=== PATIENT | female | born 1965 | race American Indian/Alaskan Native ===

== ENCOUNTER 2016-07-30 20:17 | Inpatient (IN) | payer BC ==
--- NOTE | 2016-07-30 21:11 | Emergency Department Report ---
Chief Complaint: Abdominal Pain Stated Complaint: ABD PAIN/MADELEINE Time Seen by Provider: 07/30/16 21:07 - HPI History of Present Illness: 51-year-old known dialysis patient that goes to dialysis Sunday. She comes in for complaint of shortness of breathing lower leg edema edema in her stomach. - Exam Vital Signs: Vital Signs 07/30/16 20:50 Temperature 98.1 F Pulse Rate 79 Respiratory 20 Rate Blood Pressure 144/71 O2 Sat by Pulse 100 Oximetry Physical Exam: Patient is alert she appears to be uncomfortable cardiac tachycardic rate about 140, respiratory tachypnea, rates about 24 clear to auscultation, abdomen soft there is edema noted on the bilateral quadrants. Extremities bilateral edema MSE screening note: Focused history and physical exam performed. Due to findings the following was ordered: CBC CMP and BNP chest x-ray discussed with Dr. Rico patient to be evaluated in main ER. Also charge nurse is aware patient needing a room [facility]. ED Disposition for MSE Condition: Stable Instructions: Abdominal Pain (ED)
[2016-07-30 22:06] LABS: Hematocrit 29.1 % (30.3-42.9); Hemoglobin 9.4 gm/dl (10.1-14.3); Mean Corpuscular HGB Conc 32 % (30-34); Mean Corpuscular Hemoglobin 31 pg (28-32); Mean Corpuscular Volume 96 fl (79-97); Platelet Count 349 K/mm3 (140-440); Red Blood Count 3.03 M/mm3 (3.65-5.03); White Blood Count 12.9 K/mm3 (4.5-11.0)
[2016-07-30 22:11] LABS: Alanine Aminotransferase 24 units/L (7-56); Albumin 2.9 g/dL (3.9-5); Albumin/Globulin Ratio 0.6 %; Alkaline Phosphatase 639 units/L (35-129); BUN/Creatinine Ratio 8.75; Bilirubin,Total 2.6 mg/dL (0.1-1.2); Blood Urea Nitrogen 63 mg/dL (7-17); Calcium 9.7 mg/dL (8.4-10.2); Carbon Dioxide 16 mmol/L (22-30); Chloride 88.9 mmol/L (98-107); Glucose 265 mg/dL (65-100); Potassium 5.5 mmol/L (3.6-5.0); Sodium 133 mmol/L (137-145)
--- NOTE | 2016-07-30 22:20 | XRay Report ---
FINAL REPORT PROCEDURE: AP and lateral chest x-ray TECHNIQUE: AP and lateral chest radiographs were obtained. CPT 27858 HISTORY: esrd, sob swelling in her abd COMPARISON: No prior studies are available for comparison. FINDINGS: Heart: Magnified due to projection probably normal size. Mediastinum/Vessels: Normal. Lungs/Pleural space: Normal. Bony thorax: No acute osseous abnormality. Other: IMPRESSION: Upper normal heart size otherwise negative exam..
[2016-07-30 22:26] LABS: Anion Gap 34 mmol/L
[2016-07-31] MEDS ORDERED: MORPHINE IV ONE (04:21)
--- NOTE | 2016-07-31 05:13 | Cat Scan Report ---
FINAL REPORT PROCEDURE: CT ABDOMEN PELVIS WO CON TECHNIQUE: Computerized axial tomography of the abdomen and pelvis was performed without intravenous contrast. This study is performed without intravascular contrast material and its sensitivity for abdominal and pelvic pathology, including neoplasms, inflammation, abscess, free fluid, thrombosis, arterial dissection and infarction, is reduced compared with a contrast enhanced study. HISTORY: abdominal pain and swelling COMPARISON: 12/28/2014 FINDINGS: Visualized lower thorax: There is atelectasis at the left lung base.. Liver: The liver is enlarged. There is no discrete mass.. Spleen: Normal size and attenuation. Gallbladder and biliary system: There are calcifications in the gallbladder wall. There is pericholecystic fluid. Bile ducts are normal in caliber.. Pancreas: Normal. Adrenals: Normal. Kidneys: The kidneys are atrophic. There intrarenal vascular calcification. There are no stones. There is no hydronephrosis.. GI tract: There is no bowel obstruction, colitis or enteritis. Appendix is normal.. Lymph nodes and mesentery: Normal. Vasculature: There is dense calcified plaque in the abdominal aorta and branches.. Bladder: Normal. Reproductive organs: The uterus is unremarkable.. Peritoneum: There is moderate ascites. There is no free air.. Musculoskeletal structures: There is fusion hardware at L5-S1.. Other: There is subcutaneous edema in the anterior abdominal wall suggesting fluid overload or heart failure.. IMPRESSION: The liver is enlarged. There is no discrete mass.. There are calcifications in the gallbladder wall. There is pericholecystic fluid. Bile ducts are normal in caliber.. The kidneys are atrophic. There intrarenal vascular calcification. There are no stones. There is no hydronephrosis.. There is no bowel obstruction, colitis or enteritis. Appendix is normal.. There is moderate ascites. There is no free air.. There is subcutaneous edema in the anterior abdominal wall suggesting fluid overload or heart failure. .
--- NOTE | 2016-07-31 05:15 | Emergency Department Report ---
ED Abdominal Pain HPI - General Chief Complaint: Abdominal Pain Stated Complaint: ABD PAIN/MADELEINE Time Seen by Provider: 07/30/16 21:07 Source: patient Mode of arrival: Ambulatory Limitations: Physical Limitation - History of Present Illness Initial Comments: 51-year-old female presents to the emergency department complaining of abdominal pain and swelling. Patient reports it is evident present for one week. She states her symptoms are getting worse despite not missing a dialysis treatment. She reports shortness of breath secondary to increased swelling. She denies chest pain. There are no other complaints. MD Complaint: abdominal pain -: Gradual, week(s) (1) Location: diffuse Radiation: none Severity: moderate Quality: fullness Consistency: constant Improves With: nothing Worsens With: nothing - Related Data Home Medications Medication Instructions Recorded Confirmed Last Taken Gabapentin 300 mg PO TID 11/28/13 12/10/14 11/25/13 08:00 NovoLOG Mix 70/30 45 units SQ BID 12/10/14 12/10/14 Unknown Previous Rx's Medication Instructions Recorded Last Taken Type Insulin Glargine [Lantus VIAL] 5 - 10 units SQ DAILY PRN #10 units 12/31/14 Unknown Rx Levofloxacin 500Mg/100Ml [Levaquin 500 mg PO Q48H #20 mg 12/31/14 Unknown Rx IV PREMIX] Levothyroxine [Synthroid] 175 mcg PO QAM #30 tablet 12/31/14 Unknown Rx Promethazine [Phenergan SUPPOS] 25 mg UT Q6H PRN #30 supp.rect 12/31/14 Unknown Rx cloNIDine [Catapres] 0.2 mg PO DAILY #30 tablet 12/31/14 Unknown Rx metroNIDAZOLE/NS 500 MG/100 ML 500 mg PO BID #20 mg 12/31/14 Unknown Rx [Flagyl 500 mg/100 ml] Allergies Allergy/AdvReac Type Severity Reaction Status Date / Time Sulfa (Sulfonamide Allergy Intermediate Rash Verified 11/28/13 17:45 Antibiotics) ED Review of Systems ROS: Stated complaint: ABD PAIN/MADELEINE Other details as noted in HPI Comment: All other systems reviewed and negative Respiratory: shortness of breath Cardiovascular: edema Gastrointestinal: abdominal pain ED Past Medical Hx - Past Medical History Previous Medical History?: Yes Hx Hypertension: Yes Hx Heart Attack/AMI: No Hx Congestive Heart Failure: No Hx Diabetes: Yes Hx Deep Vein Thrombosis: Yes Hx Renal Disease: Yes (HD M, W, F) Hx Headaches / Migraines: Yes Hx Seizures: No Hx Asthma: No Additional medical history: Hemodialysis M, W, F Dr. Walker. Left arm graft - Surgical History Past Surgical History?: Yes Additional Surgical History: Left arm vascular graft, back surgery - Family History Family history: no significant - Social History Smoking Status: Never Smoker Substance Use Type: None - Medications Home Medications: Home Medications Medication Instructions Recorded Confirmed Last Taken Type Gabapentin 300 mg PO TID 11/28/13 12/10/14 11/25/13 08:00 History NovoLOG Mix 70/30 45 units SQ BID 12/10/14 12/10/14 Unknown History Insulin Glargine [Lantus VIAL] 5 - 10 units SQ DAILY PRN #10 units 12/31/14 Unknown Rx Levofloxacin 500Mg/100Ml [Levaquin 500 mg PO Q48H #20 mg 12/31/14 Unknown Rx IV PREMIX] Levothyroxine [Synthroid] 175 mcg PO QAM #30 tablet 12/31/14 Unknown Rx Promethazine [Phenergan SUPPOS] 25 mg UT Q6H PRN #30 supp.rect 12/31/14 Unknown Rx cloNIDine [Catapres] 0.2 mg PO DAILY #30 tablet 12/31/14 Unknown Rx metroNIDAZOLE/NS 500 MG/100 ML 500 mg PO BID #20 mg 12/31/14 Unknown Rx [Flagyl 500 mg/100 ml] ED Physical Exam - General Limitations: Physical Limitation General appearance: alert, in no apparent distress - Head Head exam: Present: atraumatic, normocephalic - Eye Eye exam: Present: normal appearance, PERRL, EOMI - ENT ENT exam: Present: normal exam, normal orophraynx, mucous membranes moist - Neck Neck exam: Present: normal inspection, full ROM. Absent: tenderness - Respiratory Respiratory exam: Present: normal lung sounds bilaterally. Absent: respiratory distress - Cardiovascular Cardiovascular Exam: Present: normal rhythm, tachycardia, normal heart sounds - GI/Abdominal GI/Abdominal exam: Present: soft, distended, tenderness (mild diffuse tenderness. There is a band of induration across the lower abdomen.), normal bowel sounds - Extremities Exam Extremities exam: Present: normal inspection, full ROM. Absent: tenderness - Back Exam Back exam: Present: normal inspection, full ROM. Absent: tenderness - Neurological Exam Neurological exam: Present: alert, oriented X3. Absent: motor sensory deficit - Skin Skin exam: Present: warm, dry, intact ED Course Vital Signs 07/30/16 20:50 Temperature 98.1 F Pulse Rate 79 Respiratory 20 Rate Blood Pressure 144/71 O2 Sat by Pulse 100 Oximetry ED Medical Decision Making - Lab Data Result diagrams: 07/30/16 21:34 07/30/16 21:34 - EKG Data -: EKG Interpreted by Me EKG shows normal: sinus rhythm, axis, intervals, QRS complexes, ST-T waves Rate: normal - EKG Data When compared to previous EKG there are: no significant change Interpretation: normal EKG, unchanged when compared t (03/06/2013) - Radiology Data Radiology results: report reviewed, image reviewed Chest x-ray shows no acute cardiopulmonary abnormality. CT of the abdomen and pelvis reveals an enlarged liver with no discrete mass. Calcifications are noted in the gallbladder wall with some pericholecystic fluid. Moderate ascites is seen with subcutaneous edema in the anterior abdominal wall suggesting fluid overload or heart failure. - Medical Decision Making Lab and imaging results reviewed and discussed with the patient. The CT findings and physical exam findings raise concern for possible calciphylaxis as well as volume overload. Consulting the patient's sampler ovens. The patient is to be admitted by the hospitalist. - Differential Diagnosis volume overload, electrolyte abnormality, anasarca Critical care attestation.: If time is entered above; I have spent that time in minutes in the direct care of this critically ill patient, excluding procedure time. ED Disposition Clinical Impression: Abdominal pain Qualifiers: Abdominal location: generalized Qualified Code(s): R10.84 - Generalized abdominal pain Volume overload Qualifiers: Hypervolemia type: other Qualified Code(s): E87.79 - Other fluid overload Disposition: OP ADMITTED IP TO THIS HOSP Is pt being admited?: Yes Condition: Stable Instructions: Abdominal Pain (ED) Time of Disposition: 05:55
[2016-07-31] MEDS ORDERED: HEPARIN SUB-Q ONE (07:38)
[2016-07-31] MEDS: MORPHINE IV PRN (07:53)
[2016-07-31] MEDS ORDERED: NACL 0.9% 1000 ML 100 ML IV PRN (09:14)
[2016-07-31] MEDS ORDERED: HEPARIN IV PRN (09:14)
[2016-07-31] MEDS ORDERED: ALBURX 25% (ALBUMIN) IV PRN (09:14)
[2016-07-31] MEDS ORDERED: HEPARIN 10,000 UNITS/10 ML IV PRN (09:14)
--- NOTE | 2016-07-31 09:14 | Consultation ---
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 The pain is diffuse and fairly constant and associated with intermittent nausea. She states her symptoms are getting worse. Her PO intake is good. Patient denies any vomiting, diarrhea, dizziness, melena, rectal bleeding, dysuria, hematuria, fever, jaundice, rash, sob or syncope. 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 She was last dialyzed 3 days ago. She is also found to have A.fib with RVR. Past History Past Medical History: anemia, diabetes, dialysis, hypertension, hypothyroidism, renal failure Social history: denies: smoking, alcohol abuse Medications and Allergies Allergies Allergy/AdvReac Type Severity Reaction Status Date / Time Sulfa (Sulfonamide Allergy Intermediate Rash Verified 11/28/13 17:45 Antibiotics) Home Medications Medication Instructions Recorded Confirmed Last Taken Type Gabapentin 300 mg PO TID 11/28/13 07/31/16 07/30/16 History NovoLOG Mix 70/30 45 units SQ BID 12/10/14 07/31/16 07/30/16 History Insulin Glargine [Lantus VIAL] 5 - 10 units SQ DAILY PRN #10 units 12/31/1407/30/16 Rx Levothyroxine [Synthroid] 175 mcg PO QAM #30 tablet 12/31/14 07/31/16 07/30/16 Rx cloNIDine [Catapres] 0.2 mg PO DAILY #30 tablet 12/31/14 07/31/16 07/30/16 Rx Ergocalciferol [Vitamin D2] 1 cap PO QWEEK 07/31/16 07/31/16 Unknown History NIFEdipine XL [Procardia Xl] 90 mg PO QDAY 07/31/16 07/31/16 07/30/16 History Ranitidine HCl 75 mg PO DAILY 07/31/16 07/31/16 07/30/16 History Temazepam [Restoril] 15 mg PO QHS 07/31/16 07/31/16 07/30/16 History Vitamin B Comp and C/FA/Zn Cit 1 tab PO DAILY 07/31/16 07/31/1607/30/17 History [Dialyvite 800-Zinc 15 mg Tab] hydrALAZINE [Apresoline] 25 mg PO DAILY 07/31/16 07/31/16 07/30/16 History Active Meds: Active Medications Morphine Sulfate (Morphine) 2 mg IV Q4H PRN PRN Reason: Pain, Moderate (4-6) Last Admin: 07/31/16 07:53 Dose: 2 mg Review of Systems Constitutional: no weight loss, no weight gain, no fever, no chills, no anorexia , no poor appetite Ears, nose, mouth and throat: no sinus pressure, no sinus pain Breasts: deferred Cardiovascular: high blood pressure, no chest pain, no orthopnea, no palpitations, no rapid/irregular heart beat, no edema, no syncope, no lightheadedness, no shortness of breath, no leg edema Respiratory: cough, no shortness of breath Gastrointestinal: abdominal pain, nausea, no vomiting, no diarrhea, no BRBPR, no melena Genitourinary Female: no dysuria, no hematuria Rectal: no pain Musculoskeletal: no redness of joints Integumentary: rash, no jaundice Neurological: no paralysis, no seizures, no syncope Endocrine: high blood sugars, no weight change Hematologic/Lymphatic: no easy bleeding Allergic/Immunologic: no wheezing Exam - Vital Signs Vital signs: Vital Signs Temp Pulse Resp BP Pulse Ox 98.1 F 79 20 144/71 100 07/30/16 20:50 07/30/16 20:50 07/30/16 20:50 07/30/16 20:50 07/30/16 20:50 - General Appearance General appearance: well-developed, well-nourished, other (no distress) EENT: PERRL, hearing intact, vision intact Neck: Present: neck supple Respiratory: Clear to Ascultation Heart: irregularly irregular, tachycardia, S1S2 Gastrointestinal: Present: normoactive bowel sounds, tenderness (diffuse mild tenderness noted) Integumentary: other (multiple papular hyperpimented rash over both UEs noted) Neurologic: no focal deficit, alert and oriented x3, CN 3-12 intact Musculoskeletal: Present: other (absent left little finger, left arm AVF) Psychiatric: mood/affect appropriate, cooperative Results - Lab Results 07/30/16 21:34 07/30/16 21:34 Most recent lab results Calcium 9.7 mg/dL (8.4-10.2) 07/30/16 21:34 Assessment and Plan - Patient Problems (1) Hyperkalemia Current Visit: Yes Status: Acute Plan to address problem: Hemodialysis today. (2) End stage renal disease on dialysis Current Visit: No Status: Chronic Plan to address problem: Continue hemodialysis MWF schedule. (3) Abdominal pain Current Visit: Yes Status: Acute Qualifiers: Abdominal location: generalized Qualified Code(s): R10.84 - Generalized abdominal pain (4) Atrial fibrillation with rapid ventricular response Current Visit: Yes Status: Acute (5) Anemia, chronic renal failure Current Visit: Yes Status: Chronic Plan to address problem: Epogen. (6) Essential (primary) hypertension Current Visit: Yes Status: Acute
--- NOTE | 2016-07-31 09:23 | Admit Criteria Form ---
Admission Criteria Documentation: ABDOMINAL PAIN Clinical Indications for Admission to Inpatient Care (Place 'X' for any and all applicable criteria): Admission is indicated for ANY ONE of the following(1)(2)(3)(4)(5): [X ]I. Inpatient admission required rather than observation care (Also use Abdominal Pain: Observation Care, as appropriate) because of ANY ONE of the following: [ ]a) Severe pain requiring acute inpatient management [ ]b) Identification of etiology/finding that requires inpatient care (eg, aortic dissection, free air) [ ]c) Absent bowel sounds with complete ileus(6) [ ]d) Suspected toxic megacolon [ ]e) Severe electrolyte abnormalities requiring inpatient care [ ]f) High fever or infection requiring inpatient admission as indicated by ANY ONE of following(7)(8): [ ] i) Appropriate outpatient or observational care antimicrobial treatment unavailable, not effective, or not feasible [ ] ii) Documented bacteremia [ ] iii) Temperature > 104.9 degrees F (oral) [ ] iv) T >103.1 F (oral) or < 96.8 F(rectal) that does not respond to all emergency treatment measures [ ]g) Signs of intestinal obstruction [B] [ ]h) Hemodynamic instability [ ]i) IV fluid to replace significant ongoing losses (greater than 3 L/m2 per day) (12)(13) [ ]j) Percutaneous or open drainage (eg, abscess, biliary tract ) procedures [ ]k) Parenteral nutrition regimen that must be implemented on inpatient basis [ X]l) Other condition,treatment or monitoring requiring inpatient admission. [ ]II. Peritoneal signs present [ ]III. Surgery needed that cannot be performed on an ambulatory basis. [ ]IV. Evaluation requires patient to not eat or drink for extended period ( eg, more than 24 hours). [ ]V. Contraindications and/or Inappropriate clinical situations for Observational Care in patients with abdominal pain, when ANY ONE of the following is required: [ ]a) Thorough evaluation is required to prevent catastrophic events due to delays in diagnosing (e.g.Mesenteric ischemia) 1,3 [ ]b) Patient with severe pathology or with chronic symptoms unlikely to improve in the ED stay (3) [X ]. General contraindications and/or Inappropriate clinical situations for Observational Care in patients with abdominal pain, when ANY ONE of the following is required: [X ]a) Prediction of prolongation of LOS based on ANY ONE of the following may be considered as a contraindication for observational care 2, 3, 4, 5, 6, 7, 8, 9, 10, 11 [ ]i) Age > 65 yrs. [ ]ii) Patient arriving by ambulance [ ]iii) Patient with high acuity [ ]iv) Patient requiring vital sign monitoring [X ]v) Patient on IV medication [ ]b) Systolic blood pressures 180mmHg 3,12 [ ]c) Patient with altered mental status including delirium and other alteration of consciousness, (3) [ ]d) Patient whose discharge disposition will be to a residential home or rehabilitation home should not be managed in Emergency Department Observation Unit. CMS rule requires 3 days hospital stay before such placement.3,13 [ ]e) Patient with failure to thrive due to broad array of etiologies 3,16,17 [ ]f) Inability to ambulate 3,14 Extended stay beyond goal length of stay may be needed for(2)(3): [ ]a) Persistent abdominal pain with suspected intra-abdominal process [ ]b) Diagnosed condition requiring continued stay (e.g., pancreatitis, complicated diverticulitis) [ ]c) Surgery (e.g., colectomy) The original [employer] content created by [employer] has been revised. The portions of the content which have been revised are identified through the use of italic text or in bold, and [facility] has neither reviewed nor approved the modified material.All other unmodified content is copyright [employer]. Please see references footnoted in the original [employer] edition 2016 Admission Criteria Met: Yes
[2016-07-31] MEDS ORDERED: BENADRYL PO PRN (11:43)
[2016-07-31] MEDS: CARDIZEM PO SCH ×3 (12:15→23:32)
[2016-07-31] MEDS: NEURONTIN PO SCH ×3 (12:15→21:29)
[2016-07-31] MEDS: ASPIRIN PO SCH (12:15)
[2016-07-31 14:37] LABS: Hematocrit 28.8 % (30.3-42.9); Hemoglobin 9.2 gm/dl (10.1-14.3)
[2016-07-31 14:58] LABS: INR 1.39 (0.87-1.13)
[2016-07-31 14:59] LABS: Partial Thromboplastin Time 35.1 Sec. (24.2-36.6)
--- NOTE | 2016-07-31 15:33 | History and Physical Report ---
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 The pain is diffuse and fairly constant and associated with intermittent nausea. She states her symptoms are getting worse. Patient denies any vomiting, diarrhea, dizziness, melena, rectal bleeding, dysuria, hematuria, fever, jaundice, rash, sob or syncope. Her primary [employer] is . She was last dialyzed 3 days ago. She is also found to have A.fib with RVR in the ER. CT abdomen pelvis showed no acute change. She is now getting HD and abdominal pain also improved. Past History Past Medical History: anemia, diabetes, dialysis, hypertension, hypothyroidism, renal failure Past Surgical History: Other (fistula formation, arterial procedure in the left upper extremity for reduced blood flow to the left fourth and fifth fingers) Social history: denies: smoking, alcohol abuse Family history: diabetes, hypertension Medications and Allergies Allergies Allergy/AdvReac Type Severity Reaction Status Date / Time Sulfa (Sulfonamide Allergy Intermediate Rash Verified 11/28/13 17:45 Antibiotics) Home Medications Medication Instructions Recorded Confirmed Last Taken Type Gabapentin 300 mg PO TID 11/28/13 07/31/16 07/30/16 History NovoLOG Mix 70/30 45 units SQ BID 12/10/14 07/31/16 07/30/16 History Insulin Glargine [Lantus VIAL] 5 - 10 units SQ DAILY PRN #10 units 12/31/1407/30/16 Rx Levothyroxine [Synthroid] 175 mcg PO QAM #30 tablet 12/31/14 07/31/16 07/30/16 Rx cloNIDine [Catapres] 0.2 mg PO DAILY #30 tablet 12/31/14 07/31/16 07/30/16 Rx Ergocalciferol [Vitamin D2] 1 cap PO QWEEK 07/31/16 07/31/16 Unknown History NIFEdipine XL [Procardia Xl] 90 mg PO QDAY 07/31/16 07/31/16 07/30/16 History Ranitidine HCl 75 mg PO DAILY 07/31/16 07/31/16 07/30/16 History Temazepam [Restoril] 15 mg PO QHS 07/31/16 07/31/16 07/30/16 History Vitamin B Comp and C/FA/Zn Cit 1 tab PO DAILY 07/31/16 07/31/16 07/30/16 History [Dialyvite 800-Zinc 15 mg Tab] hydrALAZINE [Apresoline] 25 mg PO DAILY 07/31/16 07/31/16 07/30/16 History Active Meds: Active Medications Albumin Human (Alburx 25% (Albumin)) 25 gm IV LEON PRN PRN Reason: Hypotension Aspirin (Aspirin) 325 mg PO QDAY [facility] Last Admin: 07/31/16 12:15 Dose: 325 mg Atorvastatin Calcium (Lipitor) 40 mg PO QHS [facility] Diltiazem HCl (Cardizem) 30 mg PO Q6HR [facility] Last Admin: 07/31/16 12:15 Dose: 30 mg Diphenhydramine HCl (Benadryl) 12.5 mg PO Q6H PRN PRN Reason: Itching Famotidine (Pepcid) 10 mg PO QDAY [facility] Gabapentin (Neurontin) 300 mg PO TID [facility] Last Admin: 07/31/16 13:58 Dose: Not Given Heparin Sodium (Porcine) (Heparin 10,000 Units/10 Ml) 1,000 unit IV LEON PRN PRN Reason: hemodialysis Heparin Sodium (Porcine) (Heparin) 5,000 unit IV LEON PRN PRN Reason: hemodialysis Sodium Chloride (Nacl 0.9% 1000 Ml) 100 mls @ 999 mls/hr IV LEON PRN PRN Reason: Hypotension Heparin Sodium/Sodium Chloride (Heparin/ 0.45% Nacl-25,000 Unit/500 Ml) 500 mls @ 23 mls/hr IV TITR BRONSON; 1,150 UNITS/HR PRN Reason: Protocol Levofloxacin/Dextrose (Levaquin 250mg/50ml) 50 mls @ 50 mls/hr IV Q24HR [facility] PRN Reason: Protocol Insulin Human Isoph/Insulin Regular (Novolin 70/30) 45 unit SUB-Q BIDDIAB [facility] Last Admin: 07/31/16 15:20 Dose: Not Given Levothyroxine Sodium (Synthroid) 100 mcg PO DAILY@0600 [facility] Levothyroxine Sodium (Synthroid) 75 mcg PO DAILY@0600 [facility] Morphine Sulfate (Morphine) 2 mg IV Q4H PRN PRN Reason: Pain, Moderate (4-6) Last Admin: 07/31/16 07:53 Dose: 2 mg Multivit/Ca Carb/B Cmplx/FA/Prenat (Renal Caps) 1 cap PO QDAY [facility] Temazepam (Restoril) 15 mg PO QHS [facility] Review of Systems All systems: negative Constitutional: no weight loss, no anorexia, no fatigue, no poor appetite, no daytime sleepiness Ears, nose, mouth and throat: no ear pain, no ear discharge, no decreased hearing, no nose pain, no nasal congestion Breasts: normal Cardiovascular: no chest pain, no orthopnea, + palpitations, + rapid/irregular heart beat Respiratory: no cough, no cough with sputum, no excessive sputum, no hemoptysis , no shortness of breath Gastrointestinal: other (as in the history of presenting complaint) Genitourinary Female: no pelvic pain Rectal: no pain, no incontinence Musculoskeletal: no neck stiffness, no neck pain, no shooting arm pain, no shooting leg pain, no leg numbness/tingling Integumentary: no rash, no pruritis, no redness Neurological: no head injury, no transient paralysis, no weakness, no vertigo, no headaches Psychiatric: no anxiety, no memory loss, no change in sleep habits, no depression, no hopelessness Endocrine: no cold intolerance, no heat intolerance, no polyphagia, no excessive thirst Hematologic/Lymphatic: no easy bruising, no lymphadenopathy Allergic/Immunologic: no urticaria, no allergic rhinitis Exam - Physical Exam Narrative exam: General appearance: well-developed, well-nourished, other (no distress) EENT: PERRL, hearing intact, vision intact Neck: Present: neck supple Respiratory: Clear to Ascultation Heart: irregularly irregular, tachycardia, S1S2 Gastrointestinal: Present: normoactive bowel sounds, tenderness (diffuse mild tenderness noted) Integumentary: other (multiple papular hyperpimented rash over both UEs noted) Neurologic: no focal deficit, alert and oriented x3, CN 3-12 intact Musculoskeletal: Present: other (absent left little finger, left arm AVF) Psychiatric: mood/affect appropriate, cooperative - Constitutional Vitals: Temp Pulse Resp BP Pulse Ox 97.4 F L 72 18 99/54 100 07/31/16 15:25 07/31/16 15:32 07/31/16 15:25 07/31/16 15:32 07/31/16 09:19 Results - Labs CBC & Chem 7: 07/31/16 13:39 07/30/16 21:34 Labs: Laboratory Last Values WBC 12.9 K/mm3 (4.5-11.0) H 07/30/16 21:34 RBC 3.03 M/mm3 (3.65-5.03) L 07/30/16 21:34 Hgb 9.2 gm/dl (10.1-14.3) L 07/31/16 13:39 Hct 28.8 % (30.3-42.9) L 07/31/16 13:39 MCV 96 fl (79-97) 07/30/16 21:34 MCH 31 pg (28-32) 07/30/16 21:34 MCHC 32 % (30-34) 07/30/16 21:34 RDW 17.0 % (13.2-15.2) H 07/30/16 21:34 Plt Count 354 K/mm3 (140-440) 07/31/16 13:39 PT 17.0 Sec. (12.2-14.9) H 07/31/16 13:39 INR 1.39 (0.87-1.13) H 07/31/16 13:39 APTT 35.1 Sec. (24.2-36.6) 07/31/16 13:39 Sodium 133 mmol/L (137-145) L 07/30/16 21:34 Potassium 5.5 mmol/L (3.6-5.0) H 07/30/16 21:34 Chloride 88.9 mmol/L (98-107) L 07/30/16 21:34 Carbon Dioxide 16 mmol/L (22-30) L 07/30/16 21:34 Anion Gap 34 mmol/L 07/30/16 21:34 BUN 63 mg/dL (7-17) H 07/30/16 21:34 Creatinine 7.2 mg/dL (0.7-1.2) H 07/30/16 21:34 Estimated GFR 7 ml/min 07/30/16 21:34 BUN/Creatinine Ratio 8.75 % 07/30/16 21:34 Glucose 265 mg/dL (65-100) H 07/30/16 21:34 Calcium 9.7 mg/dL (8.4-10.2) 07/30/16 21:34 Total Bilirubin 2.6 mg/dL (0.1-1.2) H 07/30/16 21:34 AST 25 units/L (5-40) 07/30/16 21:34 ALT 24 units/L (7-56) 07/30/16 21:34 Alkaline Phosphatase 639 units/L (35-129) H 07/30/16 21:34 NT-Pro-B Natriuret Pep > 23629 pg/mL (0-450) H 07/30/16 21:34 Total Protein 8.0 g/dL (6.3-8.2) 07/30/16 21:34 Albumin 2.9 g/dL (3.9-5) L 07/30/16 21:34 Albumin/Globulin Ratio 0.6 % 07/30/16 21:34 Assessment and Plan Assessment and plan: (1) Atrial fibrillation with rapid ventricular response Current Visit: Yes Status: Acute Plan to address problem: Place on cardizem po, heparin drip cardiology consult. (2) End stage renal disease on dialysis Current Visit: No Status: Chronic Plan to address problem: Continue hemodialysis MWF schedule. nephrology consulted (3) Abdominal pain Current Visit: Yes Status: Acute Qualifiers: Abdominal location: generalized Qualified Code(s): R10.84 - Generalized abdominal pain CT abdomen/pelvis was unremarkable, continue to monitor (4) Hyperkalemia Current Visit: Yes Status: Acute Due to ESRD (5) Anemia, chronic renal failure Current Visit: Yes Status: Chronic Plan to address problem: Epogen during HD. (6) Essential (primary) hypertension Current Visit: Yes Status: chronic continue to monitor and cardizem for now Advance Directives: Yes VTE prophylaxis?: Chemical Plan of care discussed with patient/family: Yes
--- NOTE | 2016-07-31 17:53 | Echocardiography Report ---
Transthoracic Echocardiogram Indication: CHF BP: 125/78 Conclusions *1. Mild LV dysfunction, EF 40%. *2. Moderate conc LVH. *3. Dilated R heart chambers, moderate-severe TR, but only mild pulm HTN. Findings Left Ventricle: The left ventricular chamber size is mildly dilated. Moderate concentric left ventricular hypertrophy is observed. Moderate global hypokinesis of the left ventricle is observed. Global left ventricular systolic function is mild to moderately decreased. The estimated ejection fraction is 40-45%. Normal left ventricular diastolic filling is observed. Left Atrium: The left atrium is mildly dilated. Right Ventricle: The right ventricle is moderately dilated. The right ventricular global systolic function is moderately reduced. Right Atrium: The right atrium is moderately dilated. The interatrial septum bowed toward the left. Aortic Valve: The aortic valve is trileaflet. The aortic valve leaflets are mildly thickened. Mild aortic leaflet calcification is visualized. There is no evidence of aortic regurgitation. There is no evidence of aortic stenosis. Mitral Valve: The mitral valve leaflets appear myxomatous. The mitral valve leaflets are mildly thickened. The posterior leaflet of the mitral valve is thickened. Mitral valve posterior leaflet calcification is visualized. There is mild mitral regurgitation. There is no evidence of mitral stenosis. Tricuspid Valve: The tricuspid valve is not well visualized. 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 The tricuspid valve leaflets are mildly thickened. There is moderate to severe tricuspid regurgitation. The right ventricular systolic pressure is calculated at 37 mmHg. There is evidence of mild pulmonary hypertension. There is no tricuspid stenosis. Pulmonic Valve: The pulmonic valve appears normal. There is trace pulmonic regurgitation. There is no pulmonic stenosis. Pericardium: There is no pericardial effusion. Aorta: There is no dilatation of the aortic root. Venous: The inferior vena cava appears normal in size. There is less than 50% respiratory change in the inferior vena cava dimension. Measurements Chambers MM Name Value Normal Range Ao root diameter (MM) 2.8 cm (2 - 3.7) LA dimension (AP) MM 3.9 cm (1.9 - 4) LA:Ao ratio (MM) 1.39 ratio - AV cusp separation (MM) 1.5 cm (1.5 - 2.6) Chambers 2D Name Value Normal Range IVSd (2D) 1.38 cm (0.6 - 1.1) LVPWd (2D) 1.36 cm (0.6 - 1.1) IVS:LVPW ratio (2D) 1.01 ratio - LVIDd (2D) 4.07 cm (3.7 - 5.6) LVIDs (2D) 3.57 cm (2 - 3.8) LV FS (Teichholz) (2D) 12.3 % - LV FS (cube) (2D) 12.3 % - EF Teichholz (2D) 26.9 % - LA dimension (AP) 2D 3.8 cm (1.9 - 4) Volumes/Mass Name Value Normal Range LA ESV SP 4CH (MOD) 29 ml - LA ESV SP 2CH (MOD) 38 ml - LA ESV BP (MOD) 35 ml - LA ESV BP (MOD) index 18.6 ml/m2 - LV EDV SP 4CH (MOD) 33 ml - LV ESV SP 4CH (MOD) 25 ml - EF SP 4CH (MOD) 24 % - LV EDV SP 2CH (MOD) 65 ml - LV ESV SP 2CH (MOD) 39 ml - EF SP 2CH (MOD) 41 % - LV EDV BP 47 ml - LV ESV BP 33 ml - BP EF (MOD) 30 % - Diastolic/Systolic Function Name Value Normal Range MV E-wave Vmax 1.1 m/sec - MV deceleration time 120 msec - MV A-wave Vmax 0.65 m/sec - MV E:A ratio 1.7 ratio - LV septal e' Vmax 0.06 m/sec - LV lateral e' Vmax 0.08 m/sec - LV E:e' septal ratio 18.1 ratio - LV E:e' lateral ratio 14.6 ratio - Aortic Valve Name Value Normal Range AV VTI 22.3 cm - AV mean gradient 3 mmHg - LVOT diameter 2 cm - LVOT VTI 16.5 cm - LVOT mean gradient 2 mmHg - SV LVOT 52 ml - PO (continuity VTI) 2.32 cm2 - Mitral Valve Name Value Normal Range MV PHT 47 msec - MVA (PHT) 4.68 cm2 - Tricuspid Valve Name Value Normal Range TR Vmax 2.68 m/sec - TR peak gradient 29 mmHg - RAP 8 mmHg - RVSP 37 mmHg - Pulmonic Valve/Qp:Qs Name Value Normal Range PV Vmax 0.64 m/sec - PV peak gradient 2 mmHg - MA end-diastolic Vmax 2.22 m/sec - PV acceleration time 106 msec -
[2016-07-31] MEDS: LEVAQUIN 250MG/50ML 50 ML IV SCH (21:04)
[2016-07-31] MEDS: RESTORIL PO SCH (21:28)
[2016-07-31] MEDS: HEPARIN/ 0.45% NACL-25,000 UNIT/500 ML 500 ML IV SCH (21:30)
[2016-08-01] MEDS: SYNTHROID PO SCH ×2 (05:12)
[2016-08-01] MEDS: CARDIZEM PO SCH ×4 (05:12→23:03)
--- NOTE | 2016-08-01 05:28 | Progress Note ---
Assessment and Plan - Patient Problems (1) Hyperkalemia Current Visit: Yes Status: Acute Plan to address problem: S/p hemodialysis yesterday. (2) End stage renal disease on dialysis Current Visit: No Status: Chronic Plan to address problem: Continue hemodialysis three times a week. Compliance encouraged. (3) Abdominal pain Current Visit: Yes Status: Acute Qualifiers: Abdominal location: generalized Qualified Code(s): R10.84 - Generalized abdominal pain (4) Atrial fibrillation with rapid ventricular response Current Visit: Yes Status: Acute Plan to address problem: Rate controlled. (5) Anemia, chronic renal failure Current Visit: Yes Status: Chronic Plan to address problem: Epogen. (6) Essential (primary) hypertension Current Visit: Yes Status: Acute Plan to address problem: BP controlled. (7) Ascites Current Visit: Yes Status: Acute Plan to address problem: Scheduled for diagnostic paracentesis today. Subjective Date of service: 08/01/16 Interval history: Patient had one episode of diarrhea today. Objective - Vital Signs Vital signs: Vital Signs - 12hr 07/31/16 07/31/16 07/31/16 17:30 18:00 18:31 Temperature 97.4 F L Pulse Rate 74 75 75 Pulse Rate [ From Monitor] Respiratory 18 Rate Blood Pressure 115/54 125/63 125/63 Blood Pressure [Left Arm] O2 Sat by Pulse Oximetry 07/31/16 08/01/16 20:12 03:00 Temperature 98.2 F 97.5 F L Pulse Rate Pulse Rate [ 87 75 From Monitor] Respiratory 18 18 Rate Blood Pressure Blood Pressure 158/73 101/56 [Left Arm] O2 Sat by Pulse 99 99 Oximetry - General Appearance General appearance: well-developed, well-nourished, other (no distress) EENT: PERRL, mucous membranes moist Neck: no carotid bruit, supple Respiratory: Present: Clear to Ascultation Cardiology: irregularly irregular, S1S2, no murmurs Gastrointestinal: normoactive bowel sounds, no tenderness Integumentary: other (multiple hyperpigmented papules over the extremities noted ) Neurologic: no focal deficit, no asterixis, alert and oriented x3, CN 3-12 intact Musculoskeletal: other (absent left little finger, left arm AVF, LE edema & chronic stasis noted) Psychiatric: mood/affect appropriate, cooperative - Lab 07/31/16 13:39 07/30/16 21:34 Most recent lab results Calcium 9.7 mg/dL (8.4-10.2) 07/30/16 21:34
[2016-08-01] MEDS: NEURONTIN PO SCH ×3 (09:05→20:52)
[2016-08-01] MEDS: Renal Caps PO SCH (09:06)
[2016-08-01] MEDS: PEPCID PO SCH (09:06)
[2016-08-01] MEDS ORDERED: APRESOLINE PO SCH (10:00)
[2016-08-01] MEDS ORDERED: [UNRECOGNIZED DRUG - OTHER] PO SCH (10:00)
[2016-08-01] MEDS ORDERED: CATAPRES PO SCH (10:00)
[2016-08-01] MEDS ORDERED: RANITIDINE HCL 75 MG PO SCH (10:00)
[2016-08-01] MEDS ORDERED: PROCARDIA XL PO SCH (10:00)
[2016-08-01] MEDS: ASPIRIN PO SCH (10:13)
[2016-08-01] MEDS ORDERED: PROCRIT SUB-Q ONE ×2 (11:00→14:00)
[2016-08-01] MEDS: LEVAQUIN 250MG/50ML 50 ML IV SCH (12:25)
--- NOTE | 2016-08-01 13:16 | Consultation ---
Addendum entered and electronically signed by ERICK CERDA MD 08/01/16 13:50 : 51-year-old woman with end-stage renal disease on hemodialysis, rheumatoid arthritis and severe pulmonary hypertension. Months ago, underwent cardiac evaluation for lower extremity edema. A Lexiscan stress test was negative for ischemia, and echocardiogram showed well preserved left ventricular systolic function. She is admitted to the hospital at this time with chief complaints of abdominal pain and swelling, with secondary shortness of breath. He is admitted to the medical team, and workup of her abdominal swelling is in progress. Chest x-ray is negative for CHF or pulmonary edema. Abdominal CT reports moderate ascites. Cardiac consultation was requested for the finding of atrial fibrillation at the time of her presentation. With medical therapy, the atrial fibrillation has reverted back to a stable sinus rhythm. The atrial fibrillation is apparently new, in her records dating back to 2013, she has consistently maintained a sinus rhythm. Echocardiogram on current admission reveals a left ventricle ejection fraction of 40%, moderate, concentric left ventricular hypertrophy, dilated right heart chambers with moderate tricuspid regurgitation. Recommendations: We'll continue medical therapy for atrial fibrillation suppression, dialysis for fluid management, recommend GI evaluation of for abdominal pain and ascites. Ultimately, patient is a poor candidate for oral anticoagulation therapy as a result of multiple medical problems, chronic anemia and end-stage renal failure. Original Note: History of Present Illness Consult date: 08/01/16 Consult reason: atrial fibrillation History of present illness: This is a 51yr old woman with a history of Diabetes, Hypertension, Anemia, ESRD on hemodialysis who came to the emergency department complaining of abdominal pain ongoing for several weeks. Associated with intermittent nausea. Patient denies vomiting and diarrhea. CT abdomen reports anterior abdominal wall subcutaneous edema suggesting fluid overload and moderate ascities. Cardiac consultation requested for atrial fibrillation. Her presenting ECG shows a normal sinus rhythm. Review of telemetry strips shows a transient atrial fibrillation with RVR which has since reverted to a normal sinus rhythm. Patient denies palpitations and shortness of breath. She denies chest pain. Past History Past Medical History: anemia, diabetes, dialysis, hypertension, hypothyroidism, renal failure Social history: denies: smoking, alcohol abuse Medications and Allergies Allergies Allergy/AdvReac Type Severity Reaction Status Date / Time Sulfa (Sulfonamide Allergy Intermediate Rash Verified 11/28/13 17:45 Antibiotics) Home Medications Medication Instructions Recorded Confirmed Last Taken Type Gabapentin 300 mg PO TID 11/28/13 07/31/16 07/30/16 History NovoLOG Mix 70/30 45 units SQ BID 12/10/14 07/31/16 07/30/16 History Insulin Glargine [Lantus VIAL] 5 - 10 units SQ DAILY PRN #10 units 12/31/1407/30/16 Rx Levothyroxine [Synthroid] 175 mcg PO QAM #30 tablet 12/31/14 07/31/16 07/30/16 Rx cloNIDine [Catapres] 0.2 mg PO DAILY #30 tablet 12/31/14 07/31/16 07/30/16 Rx Ergocalciferol [Vitamin D2] 1 cap PO QWEEK 07/31/16 07/31/16 Unknown History NIFEdipine XL [Procardia Xl] 90 mg PO QDAY 07/31/16 07/31/16 07/30/16 History Ranitidine HCl 75 mg PO DAILY 07/31/16 07/31/16 07/30/16 History Temazepam [Restoril] 15 mg PO QHS 07/31/16 07/31/16 07/30/16 History Vitamin B Comp and C/FA/Zn Cit 1 tab PO DAILY 07/31/16 07/31/16 07/30/16 History [Dialyvite 800-Zinc 15 mg Tab] hydrALAZINE [Apresoline] 25 mg PO DAILY 07/31/16 07/31/16 07/30/16 History Active Meds: Active Medications Albumin Human (Alburx 25% (Albumin)) 25 gm IV LEON PRN PRN Reason: Hypotension Aspirin (Aspirin) 325 mg PO QDAY [facility] Last Admin: 08/01/16 10:13 Dose: Not Given Atorvastatin Calcium (Lipitor) 40 mg PO QHS [facility] Last Admin: 07/31/16 21:28 Dose: 40 mg Diltiazem HCl (Cardizem) 30 mg PO Q6HR [facility] Last Admin: 08/01/16 12:15 Dose: 30 mg Diphenhydramine HCl (Benadryl) 12.5 mg PO Q6H PRN PRN Reason: Itching Famotidine (Pepcid) 10 mg PO QDAY [facility] Last Admin: 08/01/16 09:06 Dose: 10 mg Gabapentin (Neurontin) 300 mg PO TID [facility] Last Admin: 08/01/16 09:05 Dose: 300 mg Heparin Sodium (Porcine) (Heparin 10,000 Units/10 Ml) 1,000 unit IV LEON PRN PRN Reason: hemodialysis Last Admin: 07/31/16 17:14 Dose: 1,000 unit Heparin Sodium (Porcine) (Heparin) 5,000 unit IV LEON PRN PRN Reason: hemodialysis Sodium Chloride (Nacl 0.9% 1000 Ml) 100 mls @ 999 mls/hr IV LEON PRN PRN Reason: Hypotension Heparin Sodium/Sodium Chloride (Heparin/ 0.45% Nacl-25,000 Unit/500 Ml) 500 mls @ 23 mls/hr IV TITR BRONSON; 1,150 UNITS/HR PRN Reason: Protocol Last Titration: 08/01/16 06:02 Dose: 1,250 units/hr Levofloxacin/Dextrose (Levaquin 250mg/50ml) 50 mls @ 50 mls/hr IV Q24HR [facility] PRN Reason: Protocol Last Admin: 08/01/16 12:25 Dose: 50 mls/hr Insulin Human Isoph/Insulin Regular (Novolin 70/30) 45 unit SUB-Q BIDDIAB [facility] Last Admin: 08/01/16 10:13 Dose: Not Given Levothyroxine Sodium (Synthroid) 100 mcg PO DAILY@0600 [facility] Last Admin: 08/01/16 05:12 Dose: 100 mcg Levothyroxine Sodium (Synthroid) 75 mcg PO DAILY@0600 [facility] Last Admin: 08/01/16 05:12 Dose: 75 mcg Morphine Sulfate (Morphine) 2 mg IV Q4H PRN PRN Reason: Pain, Moderate (4-6) Last Admin: 07/31/16 07:53 Dose: 2 mg Multivit/Ca Carb/B Cmplx/FA/Prenat (Renal Caps) 1 cap PO QDAY [facility] Last Admin: 08/01/16 09:06 Dose: 1 cap Temazepam (Restoril) 15 mg PO QHS [facility] Last Admin: 07/31/16 21:28 Dose: 15 mg Physical Examination Vital Signs Temp Pulse Resp BP Pulse Ox 98.1 F 79 20 144/71 100 07/30/16 20:50 07/30/16 20:50 07/30/16 20:50 07/30/16 20:50 07/30/16 20:50 General appearance: no acute distress HEENT: Positive: PERRL Neck: Positive: trachea midline Cardiac: Positive: Reg Rate and Rhythm Lungs: Positive: Decreased Breath Sounds Results 07/31/16 13:39 07/30/16 21:34 Coagulation 07/31/16 Range/Units 13:39 PT 17.0 H (12.2-14.9) Sec. INR 1.39 H (0.87-1.13) APTT 35.1 (24.2-36.6) Sec. CBC 07/31/16 Range/Units 13:39 Hgb 9.2 L (10.1-14.3) gm/dl Hct 28.8 L (30.3-42.9) % Plt Count 354 (140-440) K/mm3 EKG interpretations - Telemetry EKG Rhythm: Sinus Rhythm Assessment and Plan Volume overload Ascities ESRD on HD Hypertension Diabetes mellitus Anemia Transient atrial fib spontaneously reverted to sinus rhythm on oral cardizem for suppression Echo reports a dilated right heart chambers, moderate to severe TR but only mild pulmonary HTN. There is a mild LV dysfunction EF 40%.
[2016-08-01] MEDS ORDERED: PROCRIT SUB-Q NR (14:00)
--- NOTE | 2016-08-01 15:28 | Ultrasound Report ---
ULTRASOUND ABDOMEN LIMITED History: Ascites Findings: Transabdominal images in all 4 quadrants demonstrates small perihepatic ascites. No collection large enough for ultrasound guided paracentesis is demonstrated. Impression: Small ascites.
--- NOTE | 2016-08-01 19:13 | Progress Note ---
Assessment and Plan Assessment and plan: 1. AFIB RVR On admission Started on Cardizem and converted back to NSR Anticoagulated, on heparin drip 2. Acute exacerbation systolic heart failure/Right heart failure Presented for worsening shortness of breath and lower extremity edema, increased abdominal girth and abdominal pain ECHO showing EF 40%, moderate LVH, dilated right heart chambers, TR, pulmonary hypertension Cardiology following 2. Abdominal pain CT abd/pelvis with no acute abnormality, except for moderate ascites which can be due to her right heart failure Abd US pending to assess if paracentesis can be performed to rule out spontaneous peritonitis 3. ESRD on HD Neprology consulted to resume HD 4. Hyperkalemia Scheduled for HD today Recheck in am 6. Metabolic acidosis Secondary to renal failure vs infecton/sepsis Will undergo HD 4. Anemia of CKD Epogen with HD per neprology 8. SIRS Rule out infection, blood cultures obtained; CXR with no acute findings; CT abd/ pelvis also with no acute process, except for moderate ascitis and anterior abd wall subcutaneous edema; Abd US pending to assess if paracentesis can be performed 5. HTN On cardizem for afib and BP bordeline low Monitor 6. DM On insulin 70/30 Add SSI based on acuu-checks 7. Hypothyroidism Continue Synthroid Check TSH 8. Malnutrition Albumin 2.9 Consult conditioning room worker for diet supplementation 9. DVT prophylaxis Currently on heparin drip for A. fib History Interval history: c/o abd pain Hospitalist Physical - Constitutional Vitals: Temp Pulse Resp BP Pulse Ox 97.3 F L 85 18 90/53 98 08/01/16 16:26 08/01/16 16:26 08/01/16 16:26 08/01/16 16:26 08/01/16 16:26 General appearance: Present: no acute distress - Neck Neck: Present: supple, normal ROM. Absent: masses or JVD - Respiratory Respiratory effort: normal Respiratory: bilateral: diminished, negative: rhonchi, wheezing - Cardiovascular Rhythm: regular Heart Sounds: Present: S1 & S2, systolic murmur - Extremities Extremities: no ischemia Extremity abnormal: edema, other (AVF) - Abdominal General gastrointestinal: soft, tender, distended (midly), hypoactive bowel sounds - Integumentary Integumentary: Present: warm, dry. Absent: rash, clammy - Psychiatric Psychiatric: cooperative - Neurologic Neurologic: CNII-XII intact, no focal deficits Results - Labs CBC & Chem 7: 08/04/16 01:40 08/04/16 01:40 Labs: Laboratory Last Values WBC 12.9 K/mm3 (4.5-11.0) H 07/30/16 21:34 RBC 3.03 M/mm3 (3.65-5.03) L 07/30/16 21:34 Hgb 9.2 gm/dl (10.1-14.3) L 07/31/16 13:39 Hct 28.8 % (30.3-42.9) L 07/31/16 13:39 MCV 96 fl (79-97) 07/30/16 21:34 MCH 31 pg (28-32) 07/30/16 21:34 MCHC 32 % (30-34) 07/30/16 21:34 RDW 17.0 % (13.2-15.2) H 07/30/16 21:34 Plt Count 354 K/mm3 (140-440) 07/31/16 13:39 PT 17.0 Sec. (12.2-14.9) H 07/31/16 13:39 INR 1.39 (0.87-1.13) H 07/31/16 13:39 APTT 35.1 Sec. (24.2-36.6) 07/31/16 13:39 Heparin Anti-Xa Level < 0.10 U.I./ml (0.3-0.7) L 08/01/16 16:37 Sodium 133 mmol/L (137-145) L 07/30/16 21:34 Potassium 5.5 mmol/L (3.6-5.0) H 07/30/16 21:34 Chloride 88.9 mmol/L (98-107) L 07/30/16 21:34 Carbon Dioxide 16 mmol/L (22-30) L 07/30/16 21:34 Anion Gap 34 mmol/L 07/30/16 21:34 BUN 63 mg/dL (7-17) H 07/30/16 21:34 Creatinine 7.2 mg/dL (0.7-1.2) H 07/30/16 21:34 Estimated GFR 7 ml/min 07/30/16 21:34 BUN/Creatinine Ratio 8.75 % 07/30/16 21:34 Glucose 265 mg/dL (65-100) H 07/30/16 21:34 POC Glucose 255 (70-105) H 08/01/16 11:04 Calcium 9.7 mg/dL (8.4-10.2) 07/30/16 21:34 Total Bilirubin 2.6 mg/dL (0.1-1.2) H 07/30/16 21:34 AST 25 units/L (5-40) 07/30/16 21:34 ALT 24 units/L (7-56) 07/30/16 21:34 Alkaline Phosphatase 639 units/L (35-129) H 07/30/16 21:34 NT-Pro-B Natriuret Pep > 06177 pg/mL (0-450) H 07/30/16 21:34 Total Protein 8.0 g/dL (6.3-8.2) 07/30/16 21:34 Albumin 2.9 g/dL (3.9-5) L 07/30/16 21:34 Albumin/Globulin Ratio 0.6 % 07/30/16 21:34 - Imaging and Cardiology Chest x-ray: image reviewed (no acute findings) CT scan - abdomen: report reviewed (moderate ascitis) Imaging and Cardiology: ECHO - EF 40%, moderate LVH, dilated R heart chambers
[2016-08-01] MEDS: MORPHINE IV PRN (20:53)
[2016-08-01] MEDS: RESTORIL PO SCH ×2 (20:53→22:54)
[2016-08-02] MEDS: HEPARIN/ 0.45% NACL-25,000 UNIT/500 ML 500 ML IV SCH ×2 (01:00→06:04)
[2016-08-02 05:11] LABS: Basophils % (Auto) 0.2 % (0.0-1.8); Eosinophils % (Auto) 0.9 % (0.0-4.3); Hematocrit 27.6 % (30.3-42.9); Hemoglobin 8.7 gm/dl (10.1-14.3); Mean Corpuscular HGB Conc 32 % (30-34); Mean Corpuscular Hemoglobin 30 pg (28-32); Mean Corpuscular Volume 96 fl (79-97); Platelet Count 347 K/mm3 (140-440); Red Blood Count 2.87 M/mm3 (3.65-5.03); Red Cell Distribution Width 17.1 % (13.2-15.2); White Blood Count 15.9 K/mm3 (4.5-11.0)
[2016-08-02 05:27] LABS: Albumin 2.3 g/dL (3.9-5); Albumin/Globulin Ratio 0.4 %; BUN/Creatinine Ratio 9.67; Bilirubin,Total 2.7 mg/dL (0.1-1.2); Calcium 8.7 mg/dL (8.4-10.2); Chloride 85.9 mmol/L (98-107); Total Protein 7.5 g/dL (6.3-8.2)
[2016-08-02] MEDS: SYNTHROID PO SCH ×2 (06:03)
[2016-08-02] MEDS: CARDIZEM PO SCH ×2 (06:03→12:19)
[2016-08-02] MEDS: MORPHINE IV PRN ×2 (06:32→21:24)
--- NOTE | 2016-08-02 08:00 | Progress Note ---
Assessment and Plan - Patient Problems (1) Hyperkalemia Current Visit: Yes Status: Acute Plan to address problem: S/p hemodialysis and potassium level is better. (2) End stage renal disease on dialysis Current Visit: No Status: Chronic Plan to address problem: Continue hemodialysis three times a week. (3) Atrial fibrillation with rapid ventricular response Current Visit: Yes Status: Acute Plan to address problem: SR now. (4) Anemia, chronic renal failure Current Visit: Yes Status: Chronic Plan to address problem: Epogen. (5) Essential (primary) hypertension Current Visit: Yes Status: Acute (6) Ascites Current Visit: Yes Status: Acute Plan to address problem: Patient was advised to restrict fluid intake. Subjective Date of service: 08/02/16 Interval history: No new symptoms. Objective - Vital Signs Vital signs: Vital Signs - 12hr 08/01/16 08/02/16 08/02/16 22:00 00:00 04:00 Temperature 97.9 F 98.2 F Pulse Rate 74 Pulse Rate [ 71 75 Left Radial] Pulse Rate [ Right Dorsalis Pedis] Respiratory 18 18 Rate Blood Pressure 115/64 103/53 [Right Arm] O2 Sat by Pulse 99 98 Oximetry 08/02/16 07:59 Temperature 98.4 F Pulse Rate Pulse Rate [ Left Radial] Pulse Rate [ 73 Right Dorsalis Pedis] Respiratory 20 Rate Blood Pressure 106/54 [Right Arm] O2 Sat by Pulse 97 Oximetry - General Appearance General appearance: well-developed, well-nourished, other (no distress) EENT: PERRL, mucous membranes moist, hearing intact, vision intact Neck: JVD, no carotid bruit, supple Respiratory: Present: Clear to Ascultation Cardiology: regular, S1S2, no murmurs Gastrointestinal: normoactive bowel sounds, no tenderness, distended, no guarding Integumentary: warm and dry Neurologic: no focal deficit, no asterixis, alert and oriented x3 Musculoskeletal: other (bilateral LE chronic edema, left arm AVF) Psychiatric: mood/affect appropriate, cooperative - Lab 08/02/16 04:36 08/02/16 04:36 Most recent lab results Calcium 8.7 mg/dL (8.4-10.2) 08/02/16 04:36 Phosphorus 9.0 mg/dL (2.5-4.5) H 08/02/16 04:36
[2016-08-02] MEDS: NEURONTIN PO SCH ×3 (09:22→21:23)
[2016-08-02] MEDS: ASPIRIN PO SCH (09:22)
[2016-08-02] MEDS: Renal Caps PO SCH (09:22)
[2016-08-02] MEDS: PEPCID PO SCH (09:22)
[2016-08-02] MEDS: LEVAQUIN 250MG/50ML 50 ML IV SCH (09:23)
[2016-08-02] MEDS ORDERED: ALBURX 25% (ALBUMIN) IV PRN (09:38)
[2016-08-02] MEDS ORDERED: NACL 0.9% 1000 ML 100 ML IV PRN (09:38)
--- NOTE | 2016-08-02 12:14 | Progress Note ---
Addendum entered and electronically signed by SAHARA PARR MD 13:26: Switch diltiazem to CD form Start eliquis 5 mg po bid (patient describes frequent palpitations on a daily basis) Outpatient follow-up with [facility] for PAF, and cardiomyopathy Original Note: Assessment and Plan Abdominal pain Ascities ESRD on HD Hypertension Diabetes mellitus Anemia Transient atrial fib spontaneously reverted to sinus rhythm on oral cardizem for suppression Echo reports a dilated right heart chambers, moderate TR but only mild pulmonary HTN. There is a mild LV dysfunction EF 40%. Recommendations: Continue medical therapy for atrial fibrillation suppression. Patient is a poor candidate for oral anticoagulation therapy as a result of multiple medical problems, chronic anemia and end-stage renal failure. Subjective Date of service: 08/02/16 Interval history: Patient still complains of abdominal pain. Objective Vital Signs Temp Pulse Pulse Pulse Pulse Resp BP 08/02/16 11:00 97.5 F L 73 20 109/58 08/02/16 09:04 74 08/02/16 07:59 98.4 F 73 20 106/54 08/02/16 04:00 98.2 F 75 18 103/53 08/02/16 00:00 97.9 F 71 18 115/64 08/01/16 22:00 74 08/01/16 19:50 97.6 F 76 18 119/56 08/01/16 16:26 97.3 F L 85 18 90/53 08/01/16 14:44 95 H Pulse Ox 08/02/16 11:00 97 08/02/16 09:04 08/02/16 07:59 97 08/02/16 04:00 98 08/02/16 00:00 99 08/01/16 22:00 08/01/16 19:50 98 08/01/16 16:26 98 08/01/16 14:44 - Physical Examination General: No Apparent Distress HEENT: Positive: PERRL Neck: Positive: trachea midline Cardiac: Positive: Reg Rate and Rhythm Lungs: Positive: Decreased Breath Sounds - Labs and Meds Cardiac Enzymes 08/02/16 Range/Units 04:36 AST 23 (5-40) units/L CBC 08/02/16 Range/Units 04:36 WBC 15.9 H (4.5-11.0) K/mm3 RBC 2.87 L (3.65-5.03) M/mm3 Hgb 8.7 L (10.1-14.3) gm/dl Hct 27.6 L (30.3-42.9) % Plt Count 347 (140-440) K/mm3 Lymph # 1.2 (1.2-5.4) K/mm3 [place] # 1.0 H (0.0-0.8) K/mm3 Eos # 0.1 (0.0-0.4) K/mm3 Baso # 0.0 (0.0-0.1) K/mm3 Comprehensive Metabolic Panel 08/02/16 Range/Units 04:36 Sodium 130 L (137-145) mmol/L Potassium 5.0 (3.6-5.0) mmol/L Chloride 85.9 L (98-107) mmol/L Carbon Dioxide 16 L (22-30) mmol/L BUN 60 H (7-17) mg/dL Creatinine 6.2 H (0.7-1.2) mg/dL Glucose 155 H (65-100) mg/dL Calcium 8.7 (8.4-10.2) mg/dL AST 23 (5-40) units/L ALT 21 (7-56) units/L Alkaline Phosphatase 483 H (35-129) units/L Total Protein 7.5 (6.3-8.2) g/dL Albumin 2.3 L (3.9-5) g/dL
[2016-08-02] MEDS: TOPROL XL PO SCH (14:11)
--- NOTE | 2016-08-02 19:04 | Progress Note ---
Assessment and Plan Assessment and plan: 1. AFIB RVR - paroxysmal On admission Started on Cardizem and converted back to NSR Anticoagulated (on heparin drip) Cardiology switching Cardizem to CD; deciding if long term care pharmacist anticoagulation benefit outweighs the risks 2. Acute exacerbation systolic heart failure/Right heart failure Presented for worsening shortness of breath and lower extremity edema, increased abdominal girth and abdominal pain ECHO showing EF 40%, moderate LVH, dilated right heart chambers, TR, pulmonary hypertension Cardiology following and plans outpatient additional workup 2. Abdominal pain CT abd/pelvis with no acute abnormality, except for moderate ascites which can be due to her right heart failure Abd US obtained and showing small was cited with no correction be enough for ultrasound-guided paracentesis 3. ESRD on HD Neprology consulted HD resumed, on regular schedule MWF 4. Hyperkalemia Resolved HD Continue to monitor 6. Metabolic acidosis Secondary to renal failure vs infecton/sepsis S/p HD, still acidotic 4. Anemia of CKD Epogen with HD per neprology 8. SIRS Rule out infection CXR with no acute findings; CT abd/pelvis also with no acute process, except for moderate ascitis and anterior abd wall subcutaneous edema WBC trending up Blood cultures negative at 24 hours 5. HTN On cardizem po for afib and BP bordeline low Monitor 6. DM On insulin 70/30 Add SSI based on accu-checks 7. Hypothyroidism TSH slightly elevated Continue Synthroid 8. Malnutrition Albumin 2.9 Consult pile operator for diet supplementation 9. DVT prophylaxis Currently on heparin drip for A. fib History Interval history: seen during HD, no specific complaints Hospitalist Physical - Constitutional Vitals: Temp Pulse Resp BP Pulse Ox 97.5 F L 75 18 121/56 96 08/02/16 16:35 08/02/16 16:35 08/02/16 16:35 08/02/16 16:35 08/02/16 15:00 General appearance: Present: no acute distress - EENT Eyes: Present: PERRL, EOM intact, scleral icterus. Absent: conjunctival injection - Neck Neck: Present: supple, normal ROM. Absent: masses or JVD - Respiratory Respiratory effort: normal Respiratory: bilateral: diminished, negative: rhonchi, wheezing - Cardiovascular Rhythm: regular Heart Sounds: Present: S1 & S2, systolic murmur - Extremities Extremities: no ischemia Extremity abnormal: edema, other (AVF) - Abdominal General gastrointestinal: soft, tender, distended, hypoactive bowel sounds Localized gastrointestinal: tender: diffuse (no guarding) - Psychiatric Psychiatric: cooperative - Neurologic Neurologic: CNII-XII intact, no focal deficits Results - Labs CBC & Chem 7: 08/04/16 01:40 08/04/16 01:40 Labs: Laboratory Last Values WBC 15.9 K/mm3 (4.5-11.0) H 08/02/16 04:36 RBC 2.87 M/mm3 (3.65-5.03) L 08/02/16 04:36 Hgb 8.7 gm/dl (10.1-14.3) L 08/02/16 04:36 Hct 27.6 % (30.3-42.9) L 08/02/16 04:36 MCV 96 fl (79-97) 08/02/16 04:36 MCH 30 pg (28-32) 08/02/16 04:36 MCHC 32 % (30-34) 08/02/16 04:36 RDW 17.1 % (13.2-15.2) H 08/02/16 04:36 Plt Count 347 K/mm3 (140-440) 08/02/16 04:36 Lymph % (Auto) 7.8 % (13.4-35.0) L 08/02/16 04:36 [place] % (Auto) 6.4 % (0.0-7.3) 08/02/16 04:36 Eos % (Auto) 0.9 % (0.0-4.3) 08/02/16 04:36 Baso % (Auto) 0.2 % (0.0-1.8) 08/02/16 04:36 Lymph # 1.2 K/mm3 (1.2-5.4) 08/02/16 04:36 [place] # 1.0 K/mm3 (0.0-0.8) H 08/02/16 04:36 Eos # 0.1 K/mm3 (0.0-0.4) 08/02/16 04:36 Baso # 0.0 K/mm3 (0.0-0.1) 08/02/16 04:36 Seg Neutrophils % 84.7 % (40.0-70.0) H 08/02/16 04:36 Seg Neutrophils # 13.5 K/mm3 (1.8-7.7) H 08/02/16 04:36 PT 17.0 Sec. (12.2-14.9) H 07/31/16 13:39 INR 1.39 (0.87-1.13) H 07/31/16 13:39 APTT 35.1 Sec. (24.2-36.6) 07/31/16 13:39 Heparin Anti-Xa Level 0.34 U.I./ml (0.3-0.7) 08/02/16 13:37 Sodium 130 mmol/L (137-145) L 08/02/16 04:36 Potassium 5.0 mmol/L (3.6-5.0) 08/02/16 04:36 Chloride 85.9 mmol/L (98-107) L 08/02/16 04:36 Carbon Dioxide 16 mmol/L (22-30) L 08/02/16 04:36 Anion Gap 33 mmol/L 08/02/16 04:36 BUN 60 mg/dL (7-17) H 08/02/16 04:36 Creatinine 6.2 mg/dL (0.7-1.2) H 08/02/16 04:36 Estimated GFR 9 ml/min 08/02/16 04:36 BUN/Creatinine Ratio 9.67 % 08/02/16 04:36 Glucose 155 mg/dL (65-100) H 08/02/16 04:36 POC Glucose 312 (70-105) H 08/01/16 20:51 Calcium 8.7 mg/dL (8.4-10.2) 08/02/16 04:36 Phosphorus 9.0 mg/dL (2.5-4.5) H 08/02/16 04:36 Total Bilirubin 2.7 mg/dL (0.1-1.2) H 08/02/16 04:36 AST 23 units/L (5-40) 08/02/16 04:36 ALT 21 units/L (7-56) 08/02/16 04:36 Alkaline Phosphatase 483 units/L (35-129) H 08/02/16 04:36 NT-Pro-B Natriuret Pep > 94236 pg/mL (0-450) H 07/30/16 21:34 Total Protein 7.5 g/dL (6.3-8.2) 08/02/16 04:36 Albumin 2.3 g/dL (3.9-5) L 08/02/16 04:36 Albumin/Globulin Ratio 0.4 % 08/02/16 04:36 TSH 6.790 mlU/mL (0.270-4.200) H 08/02/16 04:36 - Imaging and Cardiology Imaging and Cardiology: Abd US - small ascitis, no collection big enough for paracentesis
[2016-08-02] MEDS: ELIQUIS PO SCH (21:24)
[2016-08-02] MEDS: RESTORIL PO SCH (21:24)
[2016-08-03] MEDS: MORPHINE IV PRN ×2 (05:13→12:01)
[2016-08-03] MEDS: SYNTHROID PO SCH ×2 (05:14)
[2016-08-03] MEDS ORDERED: D50W (25GM) IV ONE ×3 (06:11→12:21)
--- NOTE | 2016-08-03 07:18 | Progress Note ---
Assessment and Plan - Patient Problems (1) End stage renal disease on dialysis Current Visit: No Status: Chronic Plan to address problem: Continue hemodialysis three times a week. (2) Hyperkalemia Current Visit: Yes Status: Acute Plan to address problem: Improved. (3) Atrial fibrillation with rapid ventricular response Current Visit: Yes Status: Acute Plan to address problem: SR now. (4) Anemia, chronic renal failure Current Visit: Yes Status: Chronic Plan to address problem: Epogen. (5) Essential (primary) hypertension Current Visit: Yes Status: Acute (6) Ascites Current Visit: Yes Status: Acute Subjective Date of service: 08/03/16 Interval history: Patient was hypoglycemic this morning. Objective - Vital Signs Vital signs: Vital Signs - 12hr 08/02/16 08/02/16 08/03/16 20:00 21:24 00:41 Temperature 97.9 F 98.2 F Pulse Rate Pulse Rate [ 81 77 Left Radial] Respiratory 18 20 18 Rate Blood Pressure 124/57 90/47 [Right Arm] O2 Sat by Pulse 98 98 Oximetry 08/03/16 08/03/16 08/03/16 04:02 04:07 05:13 Temperature 98.1 F Pulse Rate 75 Pulse Rate [ 79 Left Radial] Respiratory 18 20 Rate Blood Pressure 122/55 [Right Arm] O2 Sat by Pulse 98 Oximetry - General Appearance General appearance: well-developed, well-nourished, fatigue, other (no distress) EENT: PERRL, mucous membranes moist, hearing intact, vision intact Neck: JVD, supple Respiratory: Present: Clear to Ascultation Cardiology: regular, S1S2, no murmurs Gastrointestinal: normoactive bowel sounds, no distended, no guarding, obese Integumentary: other (papular eruption noted) Neurologic: no focal deficit, no asterixis, alert and oriented x3 Musculoskeletal: other (bilateral LE edema noted, right arm AVF) Psychiatric: mood/affect appropriate, cooperative - Lab 08/02/16 04:36 08/02/16 04:36 Most recent lab results Calcium 8.7 mg/dL (8.4-10.2) 08/02/16 04:36 Phosphorus 9.0 mg/dL (2.5-4.5) H 08/02/16 04:36
[2016-08-03] MEDS: LEVAQUIN 250MG/50ML 50 ML IV SCH (09:37)
[2016-08-03] MEDS: PEPCID PO SCH (09:37)
[2016-08-03] MEDS: TOPROL XL PO SCH (09:38)
[2016-08-03] MEDS: NEURONTIN PO SCH ×3 (09:38→19:58)
[2016-08-03] MEDS: ASPIRIN PO SCH (09:38)
[2016-08-03] MEDS: ELIQUIS PO SCH (09:38)
[2016-08-03] MEDS: Renal Caps PO SCH (09:38)
[2016-08-03] MEDS ORDERED: ZESTRIL PO SCH (10:00)
--- NOTE | 2016-08-03 11:45 | Progress Note ---
Addendum entered and electronically signed by ERICK CERDA MD 08/03/16 14:45 : The patient continues to complain of abdominal pain, abdominal distention. CT scan of the abdomen reported moderate degree of ascites. Evaluation of the abdominal pain is pending. We will hold oral anticoagulation for paroxysmal A. fib, pending optimal assessment of the abdominal pathology, in case invasive procedures are required. Original Note: Assessment and Plan Abdominal pain Ascities ESRD on HD Hypertension Diabetes mellitus Anemia Transient atrial fib spontaneously reverted to sinus rhythm on metoprolol for suppression Echo reports a dilated right heart chambers, moderate TR but only mild pulmonary HTN. There is a mild LV dysfunction EF 40%. Recommendations: Continue medical therapy for atrial fibrillation suppression. GI consultation for abdominal pain. Subjective Date of service: 08/03/16 Interval history: Patient still complains of abdominal pain. Objective Vital Signs Temp Pulse Pulse Pulse Resp BP BP 08/03/16 11:18 72 08/03/16 07:30 97.4 F L 74 20 110/62 08/03/16 05:13 20 08/03/16 04:07 75 08/03/16 04:02 98.1 F 79 18 122/55 08/03/16 00:41 98.2 F 77 18 90/47 08/02/16 21:24 20 08/02/16 20:00 97.9 F 81 18 124/57 08/02/16 16:35 97.5 F L 75 18 121/56 08/02/16 16:30 75 117/54 08/02/16 16:15 73 122/53 08/02/16 16:00 73 109/54 08/02/16 15:45 76 119/53 08/02/16 15:30 74 116/53 08/02/16 15:15 75 107/51 08/02/16 15:00 97.2 F L 74 74 20 100/52 100/67 08/02/16 14:45 72 97/58 08/02/16 14:30 71 90/51 08/02/16 14:15 71 99/50 08/02/16 14:00 72 92/51 08/02/16 13:45 73 92/54 08/02/16 13:30 75 98/59 08/02/16 13:15 72 104/57 08/02/16 13:00 72 104/51 08/02/16 12:55 97.5 F L 72 18 102/56 Pulse Ox 08/03/16 11:18 08/03/16 07:30 98 08/03/16 05:13 08/03/16 04:07 08/03/16 04:02 98 08/03/16 00:41 98 08/02/16 21:24 08/02/16 20:00 98 08/02/16 16:35 08/02/16 16:30 08/02/16 16:15 08/02/16 16:00 08/02/16 15:45 08/02/16 15:30 08/02/16 15:15 08/02/16 15:00 96 08/02/16 14:45 08/02/16 14:30 08/02/16 14:15 08/02/16 14:00 08/02/16 13:45 08/02/16 13:30 08/02/16 13:15 08/02/16 13:00 08/02/16 12:55 - Physical Examination General: No Apparent Distress HEENT: Positive: PERRL Neck: Positive: trachea midline Cardiac: Positive: Reg Rate and Rhythm Lungs: Positive: Decreased Breath Sounds
--- NOTE | 2016-08-03 16:51 | Consultation ---
History of Present Illness - Reason for Consult Consult date: 08/03/16 Lower extremity pain Requesting physician: MARISELA PENN - History of Present Illness 51-year-old female with end-stage renal disease who has multiple medical problems including new onset atrial fibrillation who presented to the hospital after 2-3 weeks of swelling of the lower extremities, some abdominal distention (new onset ascites), and shortness of breath with exertion. She has been converted to a normal rhythm but continues to have abdominal pain and lower extremity swelling and pain. Vascular was consult for her lower extremity symptoms. She is known to our group for creation of a left upper extremity AV fistula. Upon discussion with the patient, she began to have pain in her lower extremities after they began to swell 2-3 weeks ago. Her swelling has improved , but she still has some pain in her lower extremities. Both lower extremities are painful. She reports long-standing numbness of the tips of her toes. Regarding her abdominal pain, she reports this occurs all the time, and postprandially. She has not lost any weight recently. She has palpable bilateral dorsalis pedis pulses. She has mild darkening of her skin from the knee to the ankle which corresponds to the area that was previously swollen and has subsequently decreased in swelling. She can move her toes without issue. She has baseline, long-standing, diabetic neuropathy of her toes. Past History Past Medical History: anemia, diabetes, dialysis, hypertension, hypothyroidism, renal failure Past Surgical History: Other (fistula formation, arterial procedure in the left upper extremity for reduced blood flow to the left fourth and fifth fingers) Social history: denies: smoking, alcohol abuse Family history: diabetes, hypertension Medications and Allergies Allergies Allergy/AdvReac Type Severity Reaction Status Date / Time Sulfa (Sulfonamide Allergy Intermediate Rash Verified 11/28/13 17:45 Antibiotics) Home Medications Medication Instructions Recorded Confirmed Last Taken Type Gabapentin 300 mg PO TID 11/28/13 07/31/16 07/30/16 History NovoLOG Mix 70/30 45 units SQ BID 12/10/14 07/31/16 07/30/16 History Insulin Glargine [Lantus VIAL] 5 - 10 units SQ DAILY PRN #10 units 12/31/1407/30/16 Rx Levothyroxine [Synthroid] 175 mcg PO QAM #30 tablet 12/31/14 07/31/1617 Rx cloNIDine [Catapres] 0.2 mg PO DAILY #30 tablet 12/31/14 07/31/16 07/30/16 Rx Ergocalciferol [Vitamin D2] 1 cap PO QWEEK 07/31/16 07/31/16 Unknown History NIFEdipine XL [Procardia Xl] 90 mg PO QDAY 07/31/16 07/31/16 07/30/16 History Ranitidine HCl 75 mg PO DAILY 07/31/16 07/31/16 07/30/16 History Temazepam [Restoril] 15 mg PO QHS 07/31/16 07/31/16 07/30/16 History Vitamin B Comp and C/FA/Zn Cit 1 tab PO DAILY 07/31/16 07/31/16 07/30/16 History [Dialyvite 800-Zinc 15 mg Tab] hydrALAZINE [Apresoline] 25 mg PO DAILY 07/31/16 07/31/16 07/30/16 History Active Meds: Active Medications Albumin Human (Alburx 25% (Albumin)) 12.5 gm IV LEON PRN PRN Reason: Hypotension Aspirin (Aspirin) 325 mg PO QDAY [facility] Last Admin: 08/03/16 09:38 Dose: 325 mg Atorvastatin Calcium (Lipitor) 40 mg PO QHS [facility] Last Admin: 08/02/16 21:23 Dose: 40 mg Diphenhydramine HCl (Benadryl) 12.5 mg PO Q6H PRN PRN Reason: Itching Famotidine (Pepcid) 10 mg PO QDAY [facility] Last Admin: 08/03/16 09:37 Dose: 10 mg Gabapentin (Neurontin) 300 mg PO TID [facility] Last Admin: 08/03/16 13:51 Dose: 300 mg Heparin Sodium (Porcine) (Heparin 10,000 Units/10 Ml) 1,000 unit IV LEON PRN PRN Reason: hemodialysis Last Admin: 07/31/16 17:14 Dose: 1,000 unit Heparin Sodium (Porcine) (Heparin) 5,000 unit IV LEON PRN PRN Reason: hemodialysis Sodium Chloride (Nacl 0.9% 1000 Ml) 100 mls @ 999 mls/hr IV LEON PRN PRN Reason: Hypotension Sodium Chloride (Nacl 0.9% 1000 Ml) 100 mls @ 999 mls/hr IV LEON PRN PRN Reason: Hypotension Insulin Human Isoph/Insulin Regular (Novolin 70/30) 45 unit SUB-Q BIDDIAB [facility] Last Admin: 08/03/16 08:31 Dose: Not Given Insulin Human Regular (Novolin R) 0 units SUB-Q ACHS [facility] PRN Reason: Protocol Last Admin: 08/03/16 12:25 Dose: Not Given Levofloxacin (Levaquin) 250 mg PO Q24HR [facility] Levothyroxine Sodium (Synthroid) 100 mcg PO DAILY@0600 [facility] Last Admin: 08/03/16 05:14 Dose: 100 mcg Levothyroxine Sodium (Synthroid) 75 mcg PO DAILY@0600 [facility] Last Admin: 08/03/16 05:14 Dose: 75 mcg Lisinopril (Zestril) 2.5 mg PO QDAY [facility] Last Admin: 08/03/16 09:38 Dose: 2.5 mg Metoprolol Succinate (Toprol Xl) 50 mg PO QDAY [facility] Last Admin: 08/03/16 09:38 Dose: 50 mg Morphine Sulfate (Morphine) 2 mg IV Q4H PRN PRN Reason: Pain, Moderate (4-6) Last Admin: 08/03/16 12:01 Dose: 2 mg Multivit/Ca Carb/B Cmplx/FA/Prenat (Renal Caps) 1 cap PO QDAY [facility] Last Admin: 08/03/16 09:38 Dose: 1 cap Temazepam (Restoril) 15 mg PO QHS [facility] Last Admin: 08/02/16 21:24 Dose: 15 mg Review of Systems All systems: negative (see HPI) Exam - Constitutional Vitals: Temp Pulse Resp BP Pulse Ox 97.4 F L 82 20 121/64 99 08/03/16 12:00 08/03/16 12:00 08/03/16 12:00 08/03/16 12:00 08/03/16 12:00 General appearance: Present: no acute distress - EENT Eyes: Present: EOM intact ENT: hearing intact - Respiratory Respiratory effort: normal - Extremities Extremities: pulses intact (dorsalis pedis palpable bilaterally), normal temperature, normal color Extremity abnormal: edema (no significant swelling at this time), other (some darkness of her lower extremities from her knees to her ankles at the area of prior swelling) - Abdominal General gastrointestinal: Present: tender (diffusely tender), distended, other ( no peritoneal signs) - Psychiatric Psychiatric: appropriate mood/affect, cooperative, other (slightly sleepy) Results - Labs CBC & Chem 7: 08/02/16 04:36 08/02/16 04:36 Labs: Abnormal lab results 08/02/16 08/02/16 08/03/16 Range/Units 07:56 11:08 06:08 POC Glucose 119 H 107 H < 40 L (70-105) 08/03/16 Range/Units 06:11 POC Glucose < 40 L (70-105) Assessment and Plan 51-year-old female with end-stage renal disease and presentation to the hospital with new onset atrial fibrillation with swelling of the lower extremities, abdomen, and dyspnea on exertion. She also had abdominal pain and lower extremity pain upon presentation. Her atrial fibrillation has converted, and she has had decreased swelling. She has palpable pedal pulses making lower extremity arterial insufficiency unlikely. Given the prior swelling, it is reasonable to perform a venous ultrasound to exclude acute deep venous thrombosis. I suspect her pain may be due to her prior swelling or from chronic venous issues exacerbated by her new onset swelling. Patient has abdominal pain which is no clear etiology. No peritoneal signs. Abdominal pain has been present for 3 weeks. Given her recent episode of atrial fibrillation and underlying end-stage renal disease, it is reasonable to perform a CT angiogram to rule out mesenteric ischemia. Her prior CT scans were performed without contrast. Discussed with Dr. Penn.
--- NOTE | 2016-08-03 20:39 | Progress Note ---
Assessment and Plan Assessment and plan: 1. AFIB RVR - paroxysmal Started on Cardizem and converted back to NSR Cardizem switched to Cd and anticoagulated with Eliquis now per cards recommandations 2. Acute exacerbation systolic heart failure/Right heart failure Presented for worsening shortness of breath and lower extremity edema, increased abdominal girth and abdominal pain ECHO showing EF 40%, moderate LVH, dilated right heart chambers, TR, pulmonary hypertension Cardiology following and plans outpatient additional workup 3. Abdominal pain CT abd/pelvis with no acute abnormality, except for moderate ascites which can be due to her right heart failure Abd US obtained and showing small ascites with no correction big enough for ultrasound-guided paracentesis Concern for mezenteric ischemia, so will obtained CTA abd; discussed with nephrology and HD already scheduled for tomorrow 3. ESRD on HD Neprology consulted HD resumed, on regular schedule MWF 4. Hyperkalemia Resolved HD Continue to monitor 6. Metabolic acidosis Secondary to renal failure vs infecton/sepsis S/p HD, still acidotic 4. Anemia of CKD Epogen with HD per neprology 8. SIRS Rule out infection CXR with no acute findings; CT abd/pelvis also with no acute process, except for moderate ascitis and anterior abd wall subcutaneous edema WBC trended up Blood cultures negative at 48 hours 5. HTN On cardizem po for afib and BP bordeline low Monitor 6. DM On insulin 70/30 Episodes of hypoglycemia due to poor po intake; hold insulin and monitor 7. Hypothyroidism TSH slightly elevated, Syntroid dose increased 8. Malnutrition Albumin 2.9 Nnutritionist consulted for diet supplementation 9. DVT prophylaxis On Eliquis History Interval history: still c/o abd pain aggravated by eating overnight had episode of hypoglycemia and D50 given Hospitalist Physical - Constitutional Vitals: Temp Pulse Resp BP Pulse Ox 97.6 F 66 18 92/53 98 08/03/16 20:05 08/03/16 20:05 08/03/16 20:05 08/03/16 20:05 08/03/16 20:05 General appearance: Present: no acute distress - EENT Eyes: Present: PERRL, scleral icterus - Neck Neck: Present: supple, normal ROM. Absent: masses or JVD - Respiratory Respiratory effort: normal Respiratory: bilateral: diminished, negative: rhonchi, wheezing - Cardiovascular Rhythm: regular Heart Sounds: Present: S1 & S2, systolic murmur - Extremities Extremities: no ischemia, abnormal (Bilat LE venous stasis changes, cooler, but pulses present) - Abdominal General gastrointestinal: soft, tender, distended, hypoactive bowel sounds Localized gastrointestinal: tender: diffuse (no rebound tenderness) - Integumentary Integumentary: Present: warm, dry, decreased turgor. Absent: rash - Neurologic Neurologic: moves all extremities Results - Labs CBC & Chem 7: 08/04/16 01:40 08/04/16 01:40 Labs: Laboratory Last Values WBC 15.9 K/mm3 (4.5-11.0) H 08/02/16 04:36 RBC 2.87 M/mm3 (3.65-5.03) L 08/02/16 04:36 Hgb 8.7 gm/dl (10.1-14.3) L 08/02/16 04:36 Hct 27.6 % (30.3-42.9) L 08/02/16 04:36 MCV 96 fl (79-97) 08/02/16 04:36 MCH 30 pg (28-32) 08/02/16 04:36 MCHC 32 % (30-34) 08/02/16 04:36 RDW 17.1 % (13.2-15.2) H 08/02/16 04:36 Plt Count 347 K/mm3 (140-440) 08/02/16 04:36 Lymph % (Auto) 7.8 % (13.4-35.0) L 08/02/16 04:36 [place] % (Auto) 6.4 % (0.0-7.3) 08/02/16 04:36 Eos % (Auto) 0.9 % (0.0-4.3) 08/02/16 04:36 Baso % (Auto) 0.2 % (0.0-1.8) 08/02/16 04:36 Lymph # 1.2 K/mm3 (1.2-5.4) 08/02/16 04:36 [place] # 1.0 K/mm3 (0.0-0.8) H 08/02/16 04:36 Eos # 0.1 K/mm3 (0.0-0.4) 08/02/16 04:36 Baso # 0.0 K/mm3 (0.0-0.1) 08/02/16 04:36 Seg Neutrophils % 84.7 % (40.0-70.0) H 08/02/16 04:36 Seg Neutrophils # 13.5 K/mm3 (1.8-7.7) H 08/02/16 04:36 PT 17.0 Sec. (12.2-14.9) H 07/31/16 13:39 INR 1.39 (0.87-1.13) H 07/31/16 13:39 APTT 35.1 Sec. (24.2-36.6) 07/31/16 13:39 Heparin Anti-Xa Level 0.34 U.I./ml (0.3-0.7) 08/02/16 13:37 Sodium 130 mmol/L (137-145) L 08/02/16 04:36 Potassium 5.0 mmol/L (3.6-5.0) 08/02/16 04:36 Chloride 85.9 mmol/L (98-107) L 08/02/16 04:36 Carbon Dioxide 16 mmol/L (22-30) L 08/02/16 04:36 Anion Gap 33 mmol/L 08/02/16 04:36 BUN 60 mg/dL (7-17) H 08/02/16 04:36 Creatinine 6.2 mg/dL (0.7-1.2) H 08/02/16 04:36 Estimated GFR 9 ml/min 08/02/16 04:36 BUN/Creatinine Ratio 9.67 % 08/02/16 04:36 Glucose 155 mg/dL (65-100) H 08/02/16 04:36 POC Glucose 145 (70-105) H 08/03/16 20:06 Calcium 8.7 mg/dL (8.4-10.2) 08/02/16 04:36 Phosphorus 9.0 mg/dL (2.5-4.5) H 08/02/16 04:36 Total Bilirubin 2.7 mg/dL (0.1-1.2) H 08/02/16 04:36 AST 23 units/L (5-40) 08/02/16 04:36 ALT 21 units/L (7-56) 08/02/16 04:36 Alkaline Phosphatase 483 units/L (35-129) H 08/02/16 04:36 NT-Pro-B Natriuret Pep > 93267 pg/mL (0-450) H 07/30/16 21:34 Total Protein 7.5 g/dL (6.3-8.2) 08/02/16 04:36 Albumin 2.3 g/dL (3.9-5) L 08/02/16 04:36 Albumin/Globulin Ratio 0.4 % 08/02/16 04:36 TSH 6.790 mlU/mL (0.270-4.200) H 08/02/16 04:36
[2016-08-03] MEDS: RESTORIL PO SCH (21:35)
[2016-08-03] MEDS ORDERED: INTROPIN DRIP 800 MG/D5W 250 ML IV ONE (23:10)
[2016-08-03] MEDS ORDERED: CALCIUM CHLORIDE IV ONE (23:10)
[2016-08-03] MEDS ORDERED: ADRENALIN ONE (23:10)
[2016-08-03] MEDS ORDERED: SODIUM BICARBONATE IV ONE (23:10)
[2016-08-03] MEDS ORDERED: ADRENALIN IV ONE (23:10)
[2016-08-03] MEDS ORDERED: LEVOPHED DRIP 4 MG/NS 250 ML 250 ML IV ONE (23:49)
[2016-08-04] MEDS ORDERED: INTROPIN DRIP 800 MG/D5W 250 ML 250 ML IV SCH (00:08)
--- NOTE | 2016-08-04 01:17 | XRay Report ---
FINAL REPORT EXAM: XR CHEST 1V AP HISTORY: central line placement TECHNIQUE: AP portable view of the chest. PRIORS: 07/30/2016 FINDINGS: There is a right internal jugular central venous catheter that crosses the midline, probably with the tip located in the brachiocephalic vein. There is endotracheal tube in place which appears adequately positioned in the mid trachea. The cardiomediastinal silhouette appears normal. The lungs are hypo aerated but clear. The bones and soft tissues are unremarkable. IMPRESSION: Right central venous catheter tip is likely in the brachiocephalic vein.
--- NOTE | 2016-08-04 01:40 | Procedure Note ---
Date of procedure: 08/04/16 Pre-op diagnosis: cardiac arrest Post-op diagnosis: same Procedure: Patient was transferred to the ICU after a cardiac arrest. Patient required vasopressor therapy, Hospital physician, Dr. Mccarthy is requesting central line placement. Patient critically ill, myself and Dr. Mccarthy have administratively consented the patient for emergent central line placement. The patient was prepped and draped in the typical sterile fashion. After gowning myself and putting on sterile gloves, patient was noted to have a large external jugular vein. 18-gauge Angiocath was inserted with 1 attempt into the right external jugular vein, and the guidewire was then passed through the Angiocath with no difficulty. A skin incision is made with a single puncture with an 11 blade, and then the dilator was introduced over the wire. A triple lumen central line is then inserted over the guidewire with 1 attempt, with no obvious difficulty or complications. Central line is sutured in place, large Tegaderm applied, and postprocedural x- ray demonstrates no pneumothorax, and probable positioning of the central line in the right brachiocephalic vein. I will defer to the hospital team and the inpatient team for further management. Vital Signs 07/30/16 07/31/16 07/31/16 20:50 03:50 04:10 Temperature 98.1 F Pulse Rate 79 Pulse Rate [ Apical] Pulse Rate [ From Monitor] Pulse Rate [ Left Radial] Pulse Rate [ Right Dorsalis Pedis] Pulse Rate [ Right Radial] Respiratory 20 21 22 Rate Blood Pressure 144/71 Blood Pressure [Left Arm] Blood Pressure [Right Arm] Blood Pressure [Right] O2 Sat by Pulse 100 99 Oximetry 07/31/16 07/31/16 07/31/16 05:00 05:39 06:00 Temperature Pulse Rate 136 H Pulse Rate [ Apical] Pulse Rate [ From Monitor] Pulse Rate [ Left Radial] Pulse Rate [ Right Dorsalis Pedis] Pulse Rate [ Right Radial] Respiratory 18 14 Rate Blood Pressure 103/73 113/69 Blood Pressure [Left Arm] Blood Pressure [Right Arm] Blood Pressure [Right] O2 Sat by Pulse 100 99 Oximetry 07/31/16 07/31/16 07/31/16 06:04 06:15 06:30 Temperature Pulse Rate 124 H 137 H 136 H Pulse Rate [ Apical] Pulse Rate [ From Monitor] Pulse Rate [ Left Radial] Pulse Rate [ Right Dorsalis Pedis] Pulse Rate [ Right Radial] Respiratory 14 16 17 Rate Blood Pressure 113/69 118/70 127/64 Blood Pressure [Left Arm] Blood Pressure [Right Arm] Blood Pressure [Right] O2 Sat by Pulse 97 98 98 Oximetry 07/31/16 07/31/16 07/31/16 06:45 07:00 07:15 Temperature Pulse Rate 145 H 139 H 126 H Pulse Rate [ Apical] Pulse Rate [ From Monitor] Pulse Rate [ Left Radial] Pulse Rate [ Right Dorsalis Pedis] Pulse Rate [ Right Radial] Respiratory 10 L 16 14 Rate Blood Pressure 112/69 127/79 106/73 Blood Pressure [Left Arm] Blood Pressure [Right Arm] Blood Pressure [Right] O2 Sat by Pulse 100 99 99 Oximetry 07/31/16 07/31/16 07/31/16 07:30 07:45 08:00 Temperature Pulse Rate 135 H 138 H 141 H Pulse Rate [ Apical] Pulse Rate [ From Monitor] Pulse Rate [ Left Radial] Pulse Rate [ Right Dorsalis Pedis] Pulse Rate [ Right Radial] Respiratory 13 22 11 L Rate Blood Pressure 116/72 116/72 97/56 Blood Pressure [Left Arm] Blood Pressure [Right Arm] Blood Pressure [Right] O2 Sat by Pulse 99 99 99 Oximetry 07/31/16 07/31/16 07/31/16 08:15 08:30 08:45 Temperature Pulse Rate 135 H 131 H 147 H Pulse Rate [ Apical] Pulse Rate [ From Monitor] Pulse Rate [ Left Radial] Pulse Rate [ Right Dorsalis Pedis] Pulse Rate [ Right Radial] Respiratory 11 L 10 L 15 Rate Blood Pressure 115/69 111/65 119/70 Blood Pressure [Left Arm] Blood Pressure [Right Arm] Blood Pressure [Right] O2 Sat by Pulse 99 98 100 Oximetry 07/31/16 07/31/16 07/31/16 08:58 09:00 09:04 Temperature Pulse Rate 135 H 131 H Pulse Rate [ Apical] Pulse Rate [ From Monitor] Pulse Rate [ Left Radial] Pulse Rate [ Right Dorsalis Pedis] Pulse Rate [ Right Radial] Respiratory 11 L 12 17 Rate Blood Pressure 119/70 125/78 Blood Pressure [Left Arm] Blood Pressure [Right Arm] Blood Pressure [Right] O2 Sat by Pulse 100 100 97 Oximetry 07/31/16 07/31/16 07/31/16 09:19 15:25 15:32 Temperature 97.4 F L Pulse Rate 123 H 76 72 Pulse Rate [ Apical] Pulse Rate [ From Monitor] Pulse Rate [ Left Radial] Pulse Rate [ Right Dorsalis Pedis] Pulse Rate [ Right Radial] Respiratory 14 18 Rate Blood Pressure 102/52 99/54 Blood Pressure [Left Arm] Blood Pressure [Right Arm] Blood Pressure 125/78 [Right] O2 Sat by Pulse 100 Oximetry 07/31/16 07/31/16 07/31/16 15:45 16:00 16:15 Temperature Pulse Rate 75 75 74 Pulse Rate [ Apical] Pulse Rate [ From Monitor] Pulse Rate [ Left Radial] Pulse Rate [ Right Dorsalis Pedis] Pulse Rate [ Right Radial] Respiratory Rate Blood Pressure 109/55 97/50 96/51 Blood Pressure [Left Arm] Blood Pressure [Right Arm] Blood Pressure [Right] O2 Sat by Pulse Oximetry 07/31/16 07/31/16 07/31/16 16:30 16:45 17:00 Temperature Pulse Rate 74 75 74 Pulse Rate [ Apical] Pulse Rate [ From Monitor] Pulse Rate [ Left Radial] Pulse Rate [ Right Dorsalis Pedis] Pulse Rate [ Right Radial] Respiratory Rate Blood Pressure 94/80 99/51 95/46 Blood Pressure [Left Arm] Blood Pressure [Right Arm] Blood Pressure [Right] O2 Sat by Pulse Oximetry 07/31/16 07/31/16 07/31/16 17:15 17:30 18:00 Temperature Pulse Rate 74 74 75 Pulse Rate [ Apical] Pulse Rate [ From Monitor] Pulse Rate [ Left Radial] Pulse Rate [ Right Dorsalis Pedis] Pulse Rate [ Right Radial] Respiratory Rate Blood Pressure 97/45 115/54 125/63 Blood Pressure [Left Arm] Blood Pressure [Right Arm] Blood Pressure [Right] O2 Sat by Pulse Oximetry 07/31/16 07/31/16 07/31/16 18:31 20:12 21:55 Temperature 97.4 F L 98.2 F Pulse Rate 75 67 Pulse Rate [ Apical] Pulse Rate [ 87 From Monitor] Pulse Rate [ Left Radial] Pulse Rate [ Right Dorsalis Pedis] Pulse Rate [ Right Radial] Respiratory 18 18 Rate Blood Pressure 125/63 Blood Pressure 158/73 [Left Arm] Blood Pressure [Right Arm] Blood Pressure [Right] O2 Sat by Pulse 99 Oximetry 01/08/01/16 08/01/16 03:00 04:00 06:00 Temperature 97.5 F L 97.2 F L Pulse Rate 67 Pulse Rate [ Apical] Pulse Rate [ 75 From Monitor] Pulse Rate [ Left Radial] Pulse Rate [ Right Dorsalis Pedis] Pulse Rate [ 73 Right Radial] Respiratory 18 18 Rate Blood Pressure Blood Pressure 101/56 [Left Arm] Blood Pressure 106/54 [Right Arm] Blood Pressure [Right] O2 Sat by Pulse 99 99 Oximetry 08/01/16 08/01/16 08/01/16 07:28 11:07 14:44 Temperature 97.8 F 97.8 F Pulse Rate 95 H Pulse Rate [ Apical] Pulse Rate [ From Monitor] Pulse Rate [ Left Radial] Pulse Rate [ Right Dorsalis Pedis] Pulse Rate [ 100 H 71 Right Radial] Respiratory 18 18 Rate Blood Pressure Blood Pressure [Left Arm] Blood Pressure 106/57 116/67 [Right Arm] Blood Pressure [Right] O2 Sat by Pulse 98 97 Oximetry 08/01/16 08/01/16 08/01/16 16:26 19:50 22:00 Temperature 97.3 F L 97.6 F Pulse Rate 74 Pulse Rate [ Apical] Pulse Rate [ From Monitor] Pulse Rate [ Left Radial] Pulse Rate [ Right Dorsalis Pedis] Pulse Rate [ 85 76 Right Radial] Respiratory 18 18 Rate Blood Pressure Blood Pressure [Left Arm] Blood Pressure 90/53 119/56 [Right Arm] Blood Pressure [Right] O2 Sat by Pulse 98 98 Oximetry 08/02/16 08/02/16 08/02/16 00:00 04:00 07:59 Temperature 97.9 F 98.2 F 98.4 F Pulse Rate Pulse Rate [ Apical] Pulse Rate [ From Monitor] Pulse Rate [ 71 75 Left Radial] Pulse Rate [ 73 Right Dorsalis Pedis] Pulse Rate [ Right Radial] Respiratory 18 18 20 Rate Blood Pressure Blood Pressure [Left Arm] Blood Pressure 115/64 103/53 106/54 [Right Arm] Blood Pressure [Right] O2 Sat by Pulse 99 98 97 Oximetry 08/02/16 08/02/16 08/02/16 09:04 11:00 12:55 Temperature 97.5 F L 97.5 F L Pulse Rate 74 72 Pulse Rate [ Apical] Pulse Rate [ From Monitor] Pulse Rate [ Left Radial] Pulse Rate [ 73 Right Dorsalis Pedis] Pulse Rate [ Right Radial] Respiratory 20 18 Rate Blood Pressure 102/56 Blood Pressure [Left Arm] Blood Pressure 109/58 [Right Arm] Blood Pressure [Right] O2 Sat by Pulse 97 Oximetry 08/02/16 08/02/16 08/02/16 13:00 13:15 13:30 Temperature Pulse Rate 72 72 75 Pulse Rate [ Apical] Pulse Rate [ From Monitor] Pulse Rate [ Left Radial] Pulse Rate [ Right Dorsalis Pedis] Pulse Rate [ Right Radial] Respiratory Rate Blood Pressure 104/51 104/57 98/59 Blood Pressure [Left Arm] Blood Pressure [Right Arm] Blood Pressure [Right] O2 Sat by Pulse Oximetry 08/02/16 08/02/16 08/02/16 13:45 14:00 14:15 Temperature Pulse Rate 73 72 71 Pulse Rate [ Apical] Pulse Rate [ From Monitor] Pulse Rate [ Left Radial] Pulse Rate [ Right Dorsalis Pedis] Pulse Rate [ Right Radial] Respiratory Rate Blood Pressure 92/54 92/51 99/50 Blood Pressure [Left Arm] Blood Pressure [Right Arm] Blood Pressure [Right] O2 Sat by Pulse Oximetry 08/02/16 08/02/16 08/02/16 14:30 14:45 15:00 Temperature 97.2 F L Pulse Rate 71 72 74 Pulse Rate [ 74 Apical] Pulse Rate [ From Monitor] Pulse Rate [ Left Radial] Pulse Rate [ Right Dorsalis Pedis] Pulse Rate [ Right Radial] Respiratory 20 Rate Blood Pressure 90/51 97/58 100/52 Blood Pressure [Left Arm] Blood Pressure 100/67 [Right Arm] Blood Pressure [Right] O2 Sat by Pulse 96 Oximetry 08/02/16 08/02/16 08/02/16 15:15 15:30 15:45 Temperature Pulse Rate 75 74 76 Pulse Rate [ Apical] Pulse Rate [ From Monitor] Pulse Rate [ Left Radial] Pulse Rate [ Right Dorsalis Pedis] Pulse Rate [ Right Radial] Respiratory Rate Blood Pressure 107/51 116/53 119/53 Blood Pressure [Left Arm] Blood Pressure [Right Arm] Blood Pressure [Right] O2 Sat by Pulse Oximetry 08/02/16 08/02/16 08/02/16 16:00 16:15 16:30 Temperature Pulse Rate 73 73 75 Pulse Rate [ Apical] Pulse Rate [ From Monitor] Pulse Rate [ Left Radial] Pulse Rate [ Right Dorsalis Pedis] Pulse Rate [ Right Radial] Respiratory Rate Blood Pressure 109/54 122/53 117/54 Blood Pressure [Left Arm] Blood Pressure [Right Arm] Blood Pressure [Right] O2 Sat by Pulse Oximetry 08/02/16 08/02/16 08/02/16 16:35 20:00 21:24 Temperature 97.5 F L 97.9 F Pulse Rate 75 Pulse Rate [ Apical] Pulse Rate [ From Monitor] Pulse Rate [ 81 Left Radial] Pulse Rate [ Right Dorsalis Pedis] Pulse Rate [ Right Radial] Respiratory 18 18 20 Rate Blood Pressure 121/56 Blood Pressure [Left Arm] Blood Pressure 124/57 [Right Arm] Blood Pressure [Right] O2 Sat by Pulse 98 Oximetry 08/03/16 08/03/16 08/03/16 00:41 04:02 04:07 Temperature 98.2 F 98.1 F Pulse Rate 75 Pulse Rate [ Apical] Pulse Rate [ From Monitor] Pulse Rate [ 77 79 Left Radial] Pulse Rate [ Right Dorsalis Pedis] Pulse Rate [ Right Radial] Respiratory 18 18 Rate Blood Pressure Blood Pressure [Left Arm] Blood Pressure 90/47 122/55 [Right Arm] Blood Pressure [Right] O2 Sat by Pulse 98 98 Oximetry 08/03/16 08/03/16 08/03/16 05:13 07:30 11:18 Temperature 97.4 F L Pulse Rate 72 Pulse Rate [ 74 Apical] Pulse Rate [ From Monitor] Pulse Rate [ Left Radial] Pulse Rate [ Right Dorsalis Pedis] Pulse Rate [ Right Radial] Respiratory 20 20 Rate Blood Pressure Blood Pressure [Left Arm] Blood Pressure 110/62 [Right Arm] Blood Pressure [Right] O2 Sat by Pulse 98 Oximetry 08/03/16 08/03/16 08/03/16 12:00 16:30 20:05 Temperature 97.4 F L 97.4 F L 97.6 F Pulse Rate Pulse Rate [ 82 77 66 Apical] Pulse Rate [ From Monitor] Pulse Rate [ Left Radial] Pulse Rate [ Right Dorsalis Pedis] Pulse Rate [ Right Radial] Respiratory 20 18 18 Rate Blood Pressure Blood Pressure [Left Arm] Blood Pressure 121/64 112/91 92/53 [Right Arm] Blood Pressure [Right] O2 Sat by Pulse 99 97 98 Oximetry 08/03/16 23:57 Temperature Pulse Rate 161 H Pulse Rate [ Apical] Pulse Rate [ From Monitor] Pulse Rate [ Left Radial] Pulse Rate [ Right Dorsalis Pedis] Pulse Rate [ Right Radial] Respiratory Rate Blood Pressure 141/72 Blood Pressure [Left Arm] Blood Pressure [Right Arm] Blood Pressure [Right] O2 Sat by Pulse 89 Oximetry Anesthesia: none Surgeon: ADELITA MONTGOMERY Estimated blood loss: minimal Pathology: none Condition: critical Disposition: ICU
--- NOTE | 2016-08-04 01:42 | Event Note ---
Date: 08/03/16 CODE BLUE called Patient heart rate steadily decrease, initial rhythm PEA ACLS protocol was initiated, patient was shock for V. fib There was ROSC but the pulse was lost again We continue with ACLS protocol, she was shocked several times for V. fib Patient was given bicarbonate, calcium 35 minutes of CPR, we regain pulse She is hypotensive, dopamine drip was started Patient was transferred to the ICU and dopamine was titrated off, levophed started I've consulted emergency room physician for central line Spoke with cardiology regarding the patient Labs are pending, will follow up White count of 21, will give Zosyn, vancomycin, obtain blood cultures Referred to the code sheet for details
[2016-08-04 01:51] LABS: Hematocrit 28.2 % (30.3-42.9); Hemoglobin 8.8 gm/dl (10.1-14.3); Mean Corpuscular HGB Conc 31 % (30-34); Mean Corpuscular Hemoglobin 31 pg (28-32); Mean Corpuscular Volume 98 fl (79-97); Platelet Count 325 K/mm3 (140-440); Red Blood Count 2.88 M/mm3 (3.65-5.03); Red Cell Distribution Width 16.9 % (13.2-15.2)
[2016-08-04 01:59] LABS: White Blood Count 21.1 K/mm3 (4.5-11.0)
[2016-08-04 02:41] LABS: Creatine Kinase MB 24.9 ng/mL (0.0-4.0)
[2016-08-04 02:42] LABS: Albumin 2.4 g/dL (3.9-5); Albumin/Globulin Ratio 0.5 %; BUN/Creatinine Ratio 9.44; Bilirubin,Total 2.2 mg/dL (0.1-1.2); Calcium 8.5 mg/dL (8.4-10.2); Chloride 89.5 mmol/L (98-107); Potassium 4.5 mmol/L (3.6-5.0); Total Protein 7.4 g/dL (6.3-8.2)
[2016-08-04 02:43] LABS: Magnesium 2.1 mg/dL (1.7-2.3)
[2016-08-04] MEDS: LEVOPHED DRIP 4 MG/NS 250 ML 250 ML IV SCH ×5 (03:08→12:44)
[2016-08-04 03:16] LABS: ISTAT Base Excess -4; ISTAT HCO3 20.9; ISTAT PCO2 35.2 (35-45); ISTAT PH 7.382 (7.35-7.45); ISTAT PO2 398 (80-105); ISTAT SO2 100; ISTAT TCO2 22
[2016-08-04 03:32] LABS: Basophils % (Manual) 0 % (0.0-1.8); Blastocytes % (Manual) 0 %; Eosinophils % (Manual) 0 % (0.0-4.3)
[2016-08-04 03:33] LABS: Anisocytosis 1+; Diff Status Complete; Giant Platelets Few; Hypochromasia 1+; Platelet Estimate Consistent w Auto; Polychromasia Few; Target Cells Few
[2016-08-04] MEDS ORDERED: ZOSYN/NS 3.375GM/50ML 50 ML IV SCH (04:45)
[2016-08-04] MEDS ORDERED: VANCOMYCIN/NS 1 GM/250 ML 250 ML IV ONE (04:47)
[2016-08-04 04:55] LABS: INR 1.78 (0.87-1.13)
[2016-08-04] MEDS: ZOSYN/NS 2.25 GM/50ML 50 ML IV SCH ×3 (06:02→22:04)
[2016-08-04 06:31] LABS: ISTAT Base Excess -5; ISTAT HCO3 19.8; ISTAT PCO2 33.6 (35-45); ISTAT PH 7.379 (7.35-7.45); ISTAT PO2 255 (80-105); ISTAT SO2 100; ISTAT TCO2 21
[2016-08-04 06:52] LABS: Creatine Kinase MB 27.3 ng/mL (0.0-4.0)
--- NOTE | 2016-08-04 08:27 | Progress Note ---
Assessment and Plan - Patient Problems (1) End stage renal disease on dialysis Current Visit: No Status: Chronic Plan to address problem: Patient was on multiple pressors. BP remains relatively low. Hold off hemodialysis today due to low BP. Monitor for FAMILY [employer] needs. D/w family at the bedside. (2) Ventricular fibrillation Current Visit: Yes Status: Acute Plan to address problem: Cardiology following. (3) Hyperkalemia Current Visit: Yes Status: Acute Plan to address problem: Monitor K level. (4) Respiratory failure Current Visit: Yes Status: Acute Plan to address problem: On vent. (5) Atrial fibrillation with rapid ventricular response Current Visit: Yes Status: Acute (6) Anemia, chronic renal failure Current Visit: Yes Status: Chronic (7) Ascites Current Visit: Yes Status: Acute Subjective Date of service: 08/04/16 Interval history: S/p PEA and V.fib. Transferred to ICU. Objective - Vital Signs Vital signs: Vital Signs - 12hr 08/03/16 08/03/16 08/04/16 23:46 23:57 00:00 Temperature Pulse Rate 128 H 161 H 74 Pulse Rate [ Apical] Pulse Rate [ Left Dorsalis Pedis] Pulse Rate [ Right Dorsalis Pedis] Respiratory 16 10 L Rate Blood Pressure 141/72 139/111 O2 Sat by Pulse 95 89 Oximetry 08/04/16 08/04/16 08/04/16 00:15 00:31 00:45 Temperature Pulse Rate 146 H 83 120 H Pulse Rate [ Apical] Pulse Rate [ Left Dorsalis Pedis] Pulse Rate [ Right Dorsalis Pedis] Respiratory 21 9 L 22 Rate Blood Pressure 153/128 152/62 132/80 O2 Sat by Pulse 100 100 Oximetry 08/04/16 08/04/16 08/04/16 01:00 01:15 01:19 Temperature Pulse Rate 148 H 144 H Pulse Rate [ 127 H Apical] Pulse Rate [ 138 H Left Dorsalis Pedis] Pulse Rate [ 135 H Right Dorsalis Pedis] Respiratory 15 17 Rate Blood Pressure 136/85 130/82 O2 Sat by Pulse 100 100 100 Oximetry 08/04/16 08/04/16 08/04/16 01:30 01:45 02:00 Temperature Pulse Rate 128 H 127 H 79 Pulse Rate [ Apical] Pulse Rate [ Left Dorsalis Pedis] Pulse Rate [ Right Dorsalis Pedis] Respiratory 9 L 13 24 Rate Blood Pressure 145/89 131/71 136/67 O2 Sat by Pulse 100 100 100 Oximetry 08/04/16 08/04/16 08/04/16 02:05 02:08 02:15 Temperature 97.4 F L Pulse Rate 80 77 Pulse Rate [ Apical] Pulse Rate [ Left Dorsalis Pedis] Pulse Rate [ Right Dorsalis Pedis] Respiratory 24 24 Rate Blood Pressure 136/67 133/69 O2 Sat by Pulse 100 100 Oximetry 08/04/16 08/04/16 08/04/16 02:30 02:45 03:00 Temperature Pulse Rate 77 77 77 Pulse Rate [ Apical] Pulse Rate [ Left Dorsalis Pedis] Pulse Rate [ Right Dorsalis Pedis] Respiratory 24 24 24 Rate Blood Pressure 143/71 143/70 135/71 O2 Sat by Pulse 100 100 100 Oximetry 08/04/16 08/04/16 08/04/16 03:15 03:57 06:33 Temperature Pulse Rate 77 82 77 Pulse Rate [ Apical] Pulse Rate [ Left Dorsalis Pedis] Pulse Rate [ Right Dorsalis Pedis] Respiratory 24 Rate Blood Pressure 138/69 130/69 101/53 O2 Sat by Pulse 100 100 100 Oximetry 08/04/16 08/04/16 07:33 07:53 Temperature 98.0 F Pulse Rate 86 Pulse Rate [ Apical] Pulse Rate [ Left Dorsalis Pedis] Pulse Rate [ Right Dorsalis Pedis] Respiratory Rate Blood Pressure 128/64 O2 Sat by Pulse 100 Oximetry - General Appearance General appearance: well-developed, intubated, other (on vent, FiO2 40%) EENT: PERRL Neck: supple Respiratory: Present: Other (coarse breath sounds) Cardiology: regular, S1S2, no murmurs Gastrointestinal: normoactive bowel sounds, no tenderness Integumentary: other (papular rash over the extremities) Neurologic: other (non purposeful movements, not following any command) Musculoskeletal: other (bilateral LE edema noted) - Lab 08/04/16 01:40 08/04/16 01:40 Most recent lab results Calcium 8.5 mg/dL (8.4-10.2) 08/04/16 01:40 Phosphorus 9.0 mg/dL (2.5-4.5) H 08/02/16 04:36 Magnesium 2.1 mg/dL (1.7-2.3) 08/04/16 01:40
[2016-08-04] MEDS ORDERED: ALBURX 25% (ALBUMIN) IV PRN (08:28)
[2016-08-04] MEDS ORDERED: NACL 0.9% 1000 ML 100 ML IV PRN (08:28)
--- NOTE | 2016-08-04 08:32 | XRay Report ---
SUPINE KUB: History: Dobbhoff tube placement. The abdominal gas pattern is unremarkable. No masses or organomegaly is identified and there is no gross evidence of free air or fluid. No significant soft tissue calcifications are noted. A Dobbhoff tube has been inserted which terminates in the distal stomach just before the pylorus. IMPRESSION: Normal study.
[2016-08-04] MEDS: SYNTHROID PO SCH (08:44)
--- NOTE | 2016-08-04 08:50 | Progress Note ---
Assessment and Plan Cardiac arrest PEA followed by [facility] requiring multiple shocks during ACLS (Vfib likely triggered by epi/atropine) Respiratory failure on mechanical ventilation Elevated troponin post cardiac arrest and CPR ESRD on HD x 3 years Cardiomyopathy, LVEF 40% MPI 02/2016 - Reversible anterior wall defect - cannot rule out ischemia Echo 02/2016 - LVEF 60-65%, severe pulmonary hypertension Evidence of RV dilatation and dysfunction by echo History of severe pulmonary hypertension as outpatient (? Group I PAH) VQ scan in 2015 - negative Paroxysmal atrial fibrillation History of DVT 2.5 years ago per daughter Abdominal pain/ascites and LE edema consistent with right sided heart failure Anemia Recommendations: Repeat 12 lead ECG today Wean pressors as tolerated Avoid intravascular depletion as patient is very preload dependent asa, IV heparin, lipitor Monitor blood counts closely RHC/LHC early next week Agree with LE venous doppler Once blood pressure permit patient would benefit from pulmonary vasodilator therapy (Adcirca and Letairis combined) Discussed with family at the bedside Subjective Date of service: 08/04/16 Principal diagnosis: Cardiac arrest Interval history: Events from last night noted. Patient is currently intubated on levophed. Family at the bedside. Objective Vital Signs Temp Pulse Pulse Pulse Pulse Resp BP 08/04/16 07:53 86 128/64 08/04/16 07:33 98.0 F 08/04/16 06:33 77 101/53 08/04/16 03:57 82 130/69 08/04/16 03:15 77 24 138/69 08/04/16 03:00 77 24 135/71 08/04/16 02:45 77 24 143/70 08/04/16 02:30 77 24 143/71 08/04/16 02:15 77 24 133/69 08/04/16 02:08 97.4 F L 08/04/16 02:05 80 24 136/67 08/04/16 02:00 79 24 136/67 08/04/16 01:45 127 H 13 131/71 08/04/16 01:30 128 H 9 L 145/89 08/04/16 01:19 127 H 138 H 135 H 08/04/16 01:15 144 H 17 130/82 08/04/16 01:00 148 H 15 136/85 08/04/16 00:45 120 H 22 132/80 08/04/16 00:31 83 9 L 152/62 08/04/16 00:15 146 H 21 153/128 08/04/16 00:00 74 10 L 139/111 08/03/16 23:57 161 H 141/72 08/03/16 23:46 128 H 16 08/03/16 20:05 97.6 F 66 18 08/03/16 16:30 97.4 F L 77 18 08/03/16 12:00 97.4 F L 82 20 08/03/16 11:18 72 BP Pulse Ox 08/04/16 07:53 100 08/04/16 07:33 08/04/16 06:33 100 08/04/16 03:57 100 08/04/16 03:15 100 08/04/16 03:00 100 08/04/16 02:45 100 08/04/16 02:30 100 08/04/16 02:15 100 08/04/16 02:08 08/04/16 02:05 100 08/04/16 02:00 100 08/04/16 01:45 100 08/04/16 01:30 100 08/04/16 01:19 100 08/04/16 01:15 100 08/04/16 01:00 100 08/04/16 00:45 100 08/04/16 00:31 100 08/04/16 00:15 08/04/16 00:00 08/03/16 23:57 89 08/03/16 23:46 95 08/03/16 20:05 92/53 98 08/03/16 16:30 112/91 97 08/03/16 12:00 121/64 99 08/03/16 11:18 - Physical Examination General: No Apparent Distress HEENT: Positive: PERRL Neck: Positive: trachea midline Cardiac: Positive: Reg Rate and Rhythm Lungs: Positive: Ventilated Respirations Abdomen: Positive: Firm Extremities: Present: +1 Edema, Cold - Labs and Meds Cardiac Enzymes 08/04/16 08/04/16 08/04/16 Range/Units 01:40 01:40 Unknown AST 88 H (5-40) units/L CK-MB (CK-2) 24.9 H 27.3 H (0.0-4.0) ng/mL Coagulation 08/03/16 Range/Units 01:49 PT 20.7 H (12.2-14.9) Sec. INR 1.78 H (0.87-1.13) APTT 48.0 H (24.2-36.6) Sec. Lipids 08/04/16 Range/Units 01:40 Triglycerides 81 (2-149) mg/dL Cholesterol 203 H (50-199) mg/dL HDL Cholesterol 15 L (40-59) mg/dL Cholesterol/HDL Ratio 13.53 % CBC 08/04/16 Range/Units 01:40 WBC 21.1 H (4.5-11.0) K/mm3 RBC 2.88 L (3.65-5.03) M/mm3 Hgb 8.8 L (10.1-14.3) gm/dl Hct 28.2 L (30.3-42.9) % Plt Count 325 (140-440) K/mm3 Comprehensive Metabolic Panel 08/04/16 Range/Units 01:40 Sodium 134 L (137-145) mmol/L Potassium 4.5 (3.6-5.0) mmol/L Chloride 89.5 L (98-107) mmol/L Carbon Dioxide 19 L (22-30) mmol/L BUN 51 H (7-17) mg/dL Creatinine 5.4 H (0.7-1.2) mg/dL Glucose 186 H (65-100) mg/dL Calcium 8.5 (8.4-10.2) mg/dL AST 88 H (5-40) units/L ALT 35 (7-56) units/L Alkaline Phosphatase 619 H (35-129) units/L Total Protein 7.4 (6.3-8.2) g/dL Albumin 2.4 L (3.9-5) g/dL
[2016-08-04] MEDS: ASPIRIN PO SCH ×2 (09:58→12:59)
[2016-08-04] MEDS ORDERED: LOVENOX SUB-Q SCH (10:00)
--- NOTE | 2016-08-04 10:17 | Consultation ---
History of Present Illness Consult date: 08/04/16 Requesting physician: ОЛЕГ FLETCHER Reason for consult: other (cardiac arrest with acute respiratory failure) History of present illness: 51 y/o female, cardiac arrest on the floor. Patient had PEA then went into vfib and was shocked several times. ROSC achieved but patient was hypotensive so placed on vasopressor therapy. Has since been weaned off of these and is now in sinus with elevated BP. No family currently at bedside. Not on any sedation. Patient's eyes are open with non-purposeful movements. Remainder of the review is negative. Past History Past Medical History: anemia, diabetes, dialysis, hypertension, hypothyroidism, renal failure Past Surgical History: Other (fistula formation, arterial procedure in the left upper extremity for reduced blood flow to the left fourth and fifth fingers) Social history: denies: smoking, alcohol abuse Family history: diabetes, hypertension Medications and Allergies Allergies Allergy/AdvReac Type Severity Reaction Status Date / Time Sulfa (Sulfonamide Allergy Intermediate Rash Verified 11/28/13 17:45 Antibiotics) Home Medications Medication Instructions Recorded Confirmed Last Taken Type Gabapentin 300 mg PO TID 11/28/13 07/31/16 07/30/16 History NovoLOG Mix 70/30 45 units SQ BID 12/10/14 07/31/16 07/30/16 History Insulin Glargine [Lantus VIAL] 5 - 10 units SQ DAILY PRN #10 units 12/31/1407/30/16 Rx Levothyroxine [Synthroid] 175 mcg PO QAM #30 tablet 12/31/14 07/31/16 07/30/16 Rx cloNIDine [Catapres] 0.2 mg PO DAILY #30 tablet 12/31/14 07/31/16 07/30/16 Rx Ergocalciferol [Vitamin D2] 1 cap PO QWEEK 07/31/16 07/31/16 Unknown History NIFEdipine XL [Procardia Xl] 90 mg PO QDAY 07/31/16 07/31/16 07/30/16 History Ranitidine HCl 75 mg PO DAILY 07/31/16 07/31/16 07/30/16 History Temazepam [Restoril] 15 mg PO QHS 07/31/16 07/31/16 07/30/16 History Vitamin B Comp and C/FA/Zn Cit 1 tab PO DAILY 07/31/16 07/31/16 07/30/16 History [Dialyvite 800-Zinc 15 mg Tab] hydrALAZINE [Apresoline] 25 mg PO DAILY 07/31/16 07/31/16 07/30/16 History Active Meds: Active Medications Albumin Human (Alburx 25% (Albumin)) 12.5 gm IV LEON PRN PRN Reason: Hypotension Aspirin (Aspirin) 325 mg PO QDAY [facility] Last Admin: 08/03/16 09:38 Dose: 325 mg Aspirin (Aspirin) 325 mg PO QDAY [facility] Atorvastatin Calcium (Lipitor) 40 mg PO QHS [facility] Enoxaparin Sodium (Lovenox) 20 mg SUB-Q QDAY [facility] Epoetin Robert (Epogen) 20,000 unit SUB-Q LEON PRN PRN Reason: hemodialysis Heparin Sodium (Porcine) (Heparin 10,000 Units/10 Ml) 1,000 unit IV LEON PRN PRN Reason: hemodialysis Last Admin: 07/31/16 17:14 Dose: 1,000 unit Heparin Sodium (Porcine) (Heparin) 5,000 unit IV LEON PRN PRN Reason: hemodialysis Sodium Chloride (Nacl 0.9% 1000 Ml) 100 mls @ 999 mls/hr IV LEON PRN PRN Reason: Hypotension Sodium Chloride (Nacl 0.9% 1000 Ml) 100 mls @ 999 mls/hr IV LEON PRN PRN Reason: Hypotension Dopamine HCl/Dextrose (Intropin Drip 800 Mg/D5w 250 Ml) 250 mls @ 30.825 mls/ hr IV TITR BRONSON; 20 MCG/KG/MIN PRN Reason: Protocol Norepinephrine (Levophed Drip 4 Mg/Ns 250 Ml) 250 mls @ 112.5 mls/hr IV TITR BRONSON; 30 MCG/MIN PRN Reason: Protocol Last Admin: 08/04/16 08:16 Dose: 33.75 mls/hr Piperacillin Sod/Tazobactam Sod (Zosyn/Ns 2.25 Gm/50ml) 50 mls @ 100 mls/hr IV Q6HR BRONSON Last Admin: 08/04/16 06:02 Dose: 100 mls/hr Sodium Chloride (Nacl 0.9% 1000 Ml) 100 mls @ 999 mls/hr IV LEON PRN PRN Reason: Hypotension Heparin Sodium/Sodium Chloride (Heparin/ 0.45% Nacl-25,000 Unit/500 Ml) 500 mls @ 24.66 mls/hr IV TITRATE BRONSON; 15 UNITS/KG/HR PRN Reason: Protocol Sodium Chloride (Nacl 0.9% 500 Ml) 500 mls @ 999 mls/hr IV ONCE ONE Stop: 08/04/16 09:28 Insulin Human Regular (Novolin R) 0 units SUB-Q ACHS BRONSON PRN Reason: Protocol Last Admin: 08/04/16 08:18 Dose: 2 units Levofloxacin (Levaquin) 250 mg PO Q24HR [facility] Levothyroxine Sodium (Synthroid) 100 mcg PO DAILY@0600 [facility] Last Admin: 08/03/16 05:14 Dose: 100 mcg Review of Systems ROS unobtainable: due to endotracheal tube, due to mental status Physical Examination Vital signs: Vital Signs Temp Pulse Resp BP Pulse Ox 98.1 F 79 20 144/71 100 07/30/16 20:50 07/30/16 20:50 07/30/16 20:50 07/30/16 20:50 07/30/16 20:50 General appearance: appears uncomfortable, other (not responsive on the vent) Eyes: non-icteric ENT: other (orally intubated) Neck: supple Effort: mildly labored Ascultation: Bilateral: clear (anteriorly), rales (at the bases) Percussion: Bilateral: not dull Cardiovascular: regular rate and rhythm Gastrointestinal: normoactive bowel sounds, soft, non-tender unable to assess Results - Laboratory Findings CBC and BMP: 08/04/16 01:40 08/04/16 01:40 ABG POC ABG pH 7.379 (7.35-7.45) 08/04/16 06:19 POC ABG pCO2 33.6 (35-45) L 08/04/16 06:19 POC ABG pO2 255 (80-105) H 08/04/16 06:19 POC ABG HCO3 19.8 08/04/16 06:19 POC ABG Total CO2 21 08/04/16 06:19 POC ABG O2 Sat 100 08/04/16 06:19 PT/INR, D-dimer PT 20.7 Sec. (12.2-14.9) H 08/03/16 01:49 INR 1.78 (0.87-1.13) H 08/03/16 01:49 Abnormal lab findings: Abnormal Labs 07/31/16 07/31/16 08/01/16 13:39 13:39 00:32 WBC RBC Hgb 9.2 L Hct 28.8 L MCV RDW Lymph % (Auto) [place] # Seg Neutrophils % Lymphocytes % (Manual) Nucleated RBC % Seg Neutrophils # Seg Neutrophils # Man Lymphocytes # (Manual) PT 17.0 H INR 1.39 H APTT Heparin Anti-Xa Level POC ABG pCO2 POC ABG pO2 Sodium Chloride Carbon Dioxide BUN Creatinine Glucose POC Glucose 297 H Phosphorus Total Bilirubin AST Alkaline Phosphatase Total Creatine Kinase CK-MB (CK-2) CK-MB (CK-2) Rel Index Troponin T Albumin Cholesterol LDL Cholesterol Direct HDL Cholesterol TSH 08/01/16 08/01/16 08/01/16 05:00 07:35 11:04 WBC RBC Hgb Hct MCV RDW Lymph % (Auto) [place] # Seg Neutrophils % Lymphocytes % (Manual) Nucleated RBC % Seg Neutrophils # Seg Neutrophils # Man Lymphocytes # (Manual) PT INR APTT Heparin Anti-Xa Level 0.11 L POC ABG pCO2 POC ABG pO2 Sodium Chloride Carbon Dioxide BUN Creatinine Glucose POC Glucose 218 H 255 H Phosphorus Total Bilirubin AST Alkaline Phosphatase Total Creatine Kinase CK-MB (CK-2) CK-MB (CK-2) Rel Index Troponin T Albumin Cholesterol LDL Cholesterol Direct HDL Cholesterol TSH 08/01/16 08/01/16 08/01/16 13:47 16:24 16:37 WBC RBC Hgb Hct MCV RDW Lymph % (Auto) [place] # Seg Neutrophils % Lymphocytes % (Manual) Nucleated RBC % Seg Neutrophils # Seg Neutrophils # Man Lymphocytes # (Manual) PT INR APTT Heparin Anti-Xa Level < 0.10 L < 0.10 L POC ABG pCO2 POC ABG pO2 Sodium Chloride Carbon Dioxide BUN Creatinine Glucose POC Glucose 282 H Phosphorus Total Bilirubin AST Alkaline Phosphatase Total Creatine Kinase CK-MB (CK-2) CK-MB (CK-2) Rel Index Troponin T Albumin Cholesterol LDL Cholesterol Direct HDL Cholesterol TSH 08/01/16 08/02/16 08/02/16 20:51 04:36 04:36 WBC 15.9 H RBC 2.87 L Hgb 8.7 L Hct 27.6 L MCV RDW 17.1 H Lymph % (Auto) 7.8 L [place] # 1.0 H Seg Neutrophils % 84.7 H Lymphocytes % (Manual) Nucleated RBC % Seg Neutrophils # 13.5 H Seg Neutrophils # Man Lymphocytes # (Manual) PT INR APTT Heparin Anti-Xa Level POC ABG pCO2 POC ABG pO2 Sodium 130 L Chloride 85.9 L Carbon Dioxide 16 L BUN 60 H Creatinine 6.2 H Glucose 155 H POC Glucose 312 H Phosphorus 9.0 H Total Bilirubin 2.7 H AST Alkaline Phosphatase 483 H Total Creatine Kinase CK-MB (CK-2) CK-MB (CK-2) Rel Index Troponin T Albumin 2.3 L Cholesterol LDL Cholesterol Direct HDL Cholesterol TSH 08/02/16 08/02/16 08/02/16 04:36 04:36 07:56 WBC RBC Hgb Hct MCV RDW Lymph % (Auto) [place] # Seg Neutrophils % Lymphocytes % (Manual) Nucleated RBC % Seg Neutrophils # Seg Neutrophils # Man Lymphocytes # (Manual) PT INR APTT Heparin Anti-Xa Level 0.13 L POC ABG pCO2 POC ABG pO2 Sodium Chloride Carbon Dioxide BUN Creatinine Glucose POC Glucose 119 H Phosphorus Total Bilirubin AST Alkaline Phosphatase Total Creatine Kinase CK-MB (CK-2) CK-MB (CK-2) Rel Index Troponin T Albumin Cholesterol LDL Cholesterol Direct HDL Cholesterol TSH 6.790 H 08/02/16 08/03/16 08/03/16 11:08 01:49 06:08 WBC RBC Hgb Hct MCV RDW Lymph % (Auto) [place] # Seg Neutrophils % Lymphocytes % (Manual) Nucleated RBC % Seg Neutrophils # Seg Neutrophils # Man Lymphocytes # (Manual) PT 20.7 H INR 1.78 H APTT 48.0 H Heparin Anti-Xa Level POC ABG pCO2 POC ABG pO2 Sodium Chloride Carbon Dioxide BUN Creatinine Glucose POC Glucose 107 H < 40 L Phosphorus Total Bilirubin AST Alkaline Phosphatase Total Creatine Kinase CK-MB (CK-2) CK-MB (CK-2) Rel Index Troponin T Albumin Cholesterol LDL Cholesterol Direct HDL Cholesterol TSH 08/03/16 08/03/16 08/03/16 06:11 06:33 12:20 WBC RBC Hgb Hct MCV RDW Lymph % (Auto) [place] # Seg Neutrophils % Lymphocytes % (Manual) Nucleated RBC % Seg Neutrophils # Seg Neutrophils # Man Lymphocytes # (Manual) PT INR APTT Heparin Anti-Xa Level POC ABG pCO2 POC ABG pO2 Sodium Chloride Carbon Dioxide BUN Creatinine Glucose POC Glucose < 40 L 135 H 52 L Phosphorus Total Bilirubin AST Alkaline Phosphatase Total Creatine Kinase CK-MB (CK-2) CK-MB (CK-2) Rel Index Troponin T Albumin Cholesterol LDL Cholesterol Direct HDL Cholesterol TSH 08/03/16 08/03/16 08/03/16 13:48 20:06 23:13 WBC RBC Hgb Hct MCV RDW Lymph % (Auto) [place] # Seg Neutrophils % Lymphocytes % (Manual) Nucleated RBC % Seg Neutrophils # Seg Neutrophils # Man Lymphocytes # (Manual) PT INR APTT Heparin Anti-Xa Level POC ABG pCO2 POC ABG pO2 Sodium Chloride Carbon Dioxide BUN Creatinine Glucose POC Glucose 114 H 145 H 251 H Phosphorus Total Bilirubin AST Alkaline Phosphatase Total Creatine Kinase CK-MB (CK-2) CK-MB (CK-2) Rel Index Troponin T Albumin Cholesterol LDL Cholesterol Direct HDL Cholesterol TSH 08/04/16 08/04/16 08/04/16 01:40 01:40 01:40 WBC 21.1 H RBC 2.88 L Hgb 8.8 L Hct 28.2 L MCV 98 H RDW 16.9 H Lymph % (Auto) [place] # Seg Neutrophils % Lymphocytes % (Manual) 5.0 L Nucleated RBC % 9.0 H Seg Neutrophils # Seg Neutrophils # Man 12.2 H Lymphocytes # (Manual) 1.1 L PT INR APTT Heparin Anti-Xa Level POC ABG pCO2 POC ABG pO2 Sodium 134 L Chloride 89.5 L Carbon Dioxide 19 L BUN 51 H Creatinine 5.4 H Glucose 186 H POC Glucose Phosphorus Total Bilirubin 2.2 H AST 88 H Alkaline Phosphatase 619 H Total Creatine Kinase 321 H CK-MB (CK-2) 24.9 H CK-MB (CK-2) Rel Index 7.7 H Troponin T 1.940 H* Albumin 2.4 L Cholesterol 203 H LDL Cholesterol Direct 172 H HDL Cholesterol 15 L TSH 08/04/16 08/04/16 08/04/16 02:12 03:05 06:19 WBC RBC Hgb Hct MCV RDW Lymph % (Auto) [place] # Seg Neutrophils % Lymphocytes % (Manual) Nucleated RBC % Seg Neutrophils # Seg Neutrophils # Man Lymphocytes # (Manual) PT INR APTT Heparin Anti-Xa Level POC ABG pCO2 33.6 L POC ABG pO2 398 H 255 H Sodium Chloride Carbon Dioxide BUN Creatinine Glucose POC Glucose 202 H Phosphorus Total Bilirubin AST Alkaline Phosphatase Total Creatine Kinase CK-MB (CK-2) CK-MB (CK-2) Rel Index Troponin T Albumin Cholesterol LDL Cholesterol Direct HDL Cholesterol TSH 08/04/16 08/04/16 06:23 Unknown WBC RBC Hgb Hct MCV RDW Lymph % (Auto) [place] # Seg Neutrophils % Lymphocytes % (Manual) Nucleated RBC % Seg Neutrophils # Seg Neutrophils # Man Lymphocytes # (Manual) PT INR APTT Heparin Anti-Xa Level POC ABG pCO2 POC ABG pO2 Sodium Chloride Carbon Dioxide BUN Creatinine Glucose POC Glucose 192 H Phosphorus Total Bilirubin AST Alkaline Phosphatase Total Creatine Kinase 326 H CK-MB (CK-2) 27.3 H CK-MB (CK-2) Rel Index 8.3 H Troponin T 1.910 H* Albumin Cholesterol LDL Cholesterol Direct HDL Cholesterol TSH - Diagnostic Findings Chest x-ray: image reviewed (cardiomegaly with pulmonary edema) Assessment and Plan 51 y/o female, admitted to the ICU with cardiac arrest, now with encephalopathy , hypotension and ESRD on HD. 1. Limit sedation given current mental status. Patient is moving but nonpurposefully. Does have some discordance with the vent. Will give a one time dose of fentanyl but would not prefer continuous sedation. 2. Use levophed for bp. Goal is a map of 65 3. Follow up any renal recs 4. Follow up cardiology recs 5. Overall prognosis is guarded given amount of downtime during arrest. Biggest concern is for anoxic brain injury. CCT 31 minutes.
--- NOTE | 2016-08-04 11:56 | XRay Report ---
PORTABLE CHEST: INDICATION: Evaluate central line placement. COMPARISON: 12:35 AM earlier today. FINDINGS: Portable, frontal chest radiograph, 10:35 AM, 08/04/2016 demonstrates new esophagogastric tube extending well into the stomach and beyond the inferior radiographic margin. Endotracheal tube tip approximately 3.5 cm above the valarie. Right IJ catheter tip along the distal SVC near the cavoatrial junction. Mild aortic knob calcifications. Stable hypoinflation with mild exaggerated cardiomediastinal silhouette and slightly crowded lung markings. No large pleural effusions or overt CHF, however. EKG leads. Stable bones. CONCLUSION: New esophagogastric tube with few other incidental findings, including satisfactory right IJ catheter radiographic appearance, as detailed above. Thank you for the opportunity to participate in this patient's care.
--- NOTE | 2016-08-04 11:59 | Progress Note ---
Assessment and Plan 51-year-old female with end-stage renal disease and presentation to the hospital with new onset atrial fibrillation with swelling of the lower extremities, abdomen, and dyspnea on exertion. She also had abdominal pain and lower extremity pain upon presentation. Her atrial fibrillation has converted, and she has had decreased swelling. Patient being worked up for abdominal pain. CT angiography of the abdomen and pelvis can be performed, when patient stable, to exclude mesenteric ischemia. Coolness of the lower extremities is likely related to active pressors. Lack of thrill (but palpable pulse) in the left upper extremities is related to active pressors. Venous ultrasound pending. Subjective Date of service: 08/04/16 Principal diagnosis: Cardiac arrest Interval history: Since yesterday, patient had code overnight with PEA and ventricular fibrillation arrest. Intubated. Pressors being weaned off. Dopplerable dorsalis pedis. Palpable left upper extremity AV access without thrill. Blood pressure 90 systolic. Objective - Constitutional Vitals: Vital Signs - 12hr 08/03/16 08/04/16 08/04/16 23:57 00:00 00:15 Temperature Pulse Rate 161 H 74 146 H Pulse Rate [ Apical] Pulse Rate [ Left Dorsalis Pedis] Pulse Rate [ Right Dorsalis Pedis] Respiratory 10 L 21 Rate Blood Pressure 141/72 139/111 153/128 O2 Sat by Pulse 89 Oximetry 08/04/16 08/04/16 08/04/16 00:31 00:45 01:00 Temperature Pulse Rate 83 120 H 148 H Pulse Rate [ Apical] Pulse Rate [ Left Dorsalis Pedis] Pulse Rate [ Right Dorsalis Pedis] Respiratory 9 L 22 15 Rate Blood Pressure 152/62 132/80 136/85 O2 Sat by Pulse 100 100 100 Oximetry 08/04/16 08/04/16 08/04/16 01:15 01:19 01:30 Temperature Pulse Rate 144 H 128 H Pulse Rate [ 127 H Apical] Pulse Rate [ 138 H Left Dorsalis Pedis] Pulse Rate [ 135 H Right Dorsalis Pedis] Respiratory 17 9 L Rate Blood Pressure 130/82 145/89 O2 Sat by Pulse 100 100 100 Oximetry 08/04/16 08/04/16 08/04/16 01:45 02:00 02:05 Temperature Pulse Rate 127 H 79 80 Pulse Rate [ Apical] Pulse Rate [ Left Dorsalis Pedis] Pulse Rate [ Right Dorsalis Pedis] Respiratory 13 24 24 Rate Blood Pressure 131/71 136/67 136/67 O2 Sat by Pulse 100 100 100 Oximetry 08/04/16 08/04/16 08/04/16 02:08 02:15 02:30 Temperature 97.4 F L Pulse Rate 77 77 Pulse Rate [ Apical] Pulse Rate [ Left Dorsalis Pedis] Pulse Rate [ Right Dorsalis Pedis] Respiratory 24 24 Rate Blood Pressure 133/69 143/71 O2 Sat by Pulse 100 100 Oximetry 08/04/16 08/04/16 08/04/16 02:45 03:00 03:15 Temperature Pulse Rate 77 77 77 Pulse Rate [ Apical] Pulse Rate [ Left Dorsalis Pedis] Pulse Rate [ Right Dorsalis Pedis] Respiratory 24 24 24 Rate Blood Pressure 143/70 135/71 138/69 O2 Sat by Pulse 100 100 100 Oximetry 08/04/16 08/04/16 08/04/16 03:57 06:33 07:33 Temperature 98.0 F Pulse Rate 82 77 Pulse Rate [ Apical] Pulse Rate [ Left Dorsalis Pedis] Pulse Rate [ Right Dorsalis Pedis] Respiratory Rate Blood Pressure 130/69 101/53 O2 Sat by Pulse 100 100 Oximetry 08/04/16 08/04/16 07:53 08:53 Temperature Pulse Rate 86 83 Pulse Rate [ Apical] Pulse Rate [ Left Dorsalis Pedis] Pulse Rate [ Right Dorsalis Pedis] Respiratory Rate Blood Pressure 128/64 95/48 O2 Sat by Pulse 100 100 Oximetry General appearance: Present: other (intubated) - Neck Neck: other (intubated) - Respiratory Respiratory effort: other (intubated) Extremity abnormal: pulses diminished (dopplerable dorsalis pedis bilaterally ; palpable left upper extremity AV fistula (no thrill)), other (the feet and distal calves are cool, but not cold) - Psychiatric Psychiatric: other (intubated) - Labs CBC & Chem 7: 08/04/16 01:40 08/04/16 01:40 Labs: Abnormal lab results 08/03/16 08/03/16 08/03/16 Range/Units 01:49 06:33 12:20 WBC (4.5-11.0) K/mm3 RBC (3.65-5.03) M/mm3 Hgb (10.1-14.3) gm/dl Hct (30.3-42.9) % MCV (79-97) fl RDW (13.2-15.2) % Lymphocytes % (Manual) (13.4-35.0) % Nucleated RBC % (0.0-0.9) % Seg Neutrophils # Man (1.8-7.7) K/mm3 Lymphocytes # (Manual) (1.2-5.4) K/mm3 PT 20.7 H (12.2-14.9) Sec. INR 1.78 H (0.87-1.13) APTT 48.0 H (24.2-36.6) Sec. POC ABG pCO2 (35-45) POC ABG pO2 (80-105) Sodium (137-145) mmol/L Chloride (98-107) mmol/L Carbon Dioxide (22-30) mmol/L BUN (7-17) mg/dL Creatinine (0.7-1.2) mg/dL Glucose (65-100) mg/dL POC Glucose 135 H 52 L (70-105) Total Bilirubin (0.1-1.2) mg/dL AST (5-40) units/L Alkaline Phosphatase (35-129) units/L Total Creatine Kinase (30-135) units/L CK-MB (CK-2) (0.0-4.0) ng/mL CK-MB (CK-2) Rel Index (0-4) Troponin T (0.00-0.029) ng/mL Albumin (3.9-5) g/dL Cholesterol (50-199) mg/dL LDL Cholesterol Direct (50-130) mg/dL HDL Cholesterol (40-59) mg/dL 08/03/16 08/03/16 08/03/16 Range/Units 13:48 20:06 23:13 WBC (4.5-11.0) K/mm3 RBC (3.65-5.03) M/mm3 Hgb (10.1-14.3) gm/dl Hct (30.3-42.9) % MCV (79-97) fl RDW (13.2-15.2) % Lymphocytes % (Manual) (13.4-35.0) % Nucleated RBC % (0.0-0.9) % Seg Neutrophils # Man (1.8-7.7) K/mm3 Lymphocytes # (Manual) (1.2-5.4) K/mm3 PT (12.2-14.9) Sec. INR (0.87-1.13) APTT (24.2-36.6) Sec. POC ABG pCO2 (35-45) POC ABG pO2 (80-105) Sodium (137-145) mmol/L Chloride (98-107) mmol/L Carbon Dioxide (22-30) mmol/L BUN (7-17) mg/dL Creatinine (0.7-1.2) mg/dL Glucose (65-100) mg/dL POC Glucose 114 H 145 H 251 H (70-105) Total Bilirubin (0.1-1.2) mg/dL AST (5-40) units/L Alkaline Phosphatase (35-129) units/L Total Creatine Kinase (30-135) units/L CK-MB (CK-2) (0.0-4.0) ng/mL CK-MB (CK-2) Rel Index (0-4) Troponin T (0.00-0.029) ng/mL Albumin (3.9-5) g/dL Cholesterol (50-199) mg/dL LDL Cholesterol Direct (50-130) mg/dL HDL Cholesterol (40-59) mg/dL 08/04/16 08/04/16 08/04/16 Range/Units 01:40 01:40 01:40 WBC 21.1 H (4.5-11.0) K/mm3 RBC 2.88 L (3.65-5.03) M/mm3 Hgb 8.8 L (10.1-14.3) gm/dl Hct 28.2 L (30.3-42.9) % MCV 98 H (79-97) fl RDW 16.9 H (13.2-15.2) % Lymphocytes % (Manual) 5.0 L (13.4-35.0) % Nucleated RBC % 9.0 H (0.0-0.9) % Seg Neutrophils # Man 12.2 H (1.8-7.7) K/mm3 Lymphocytes # (Manual) 1.1 L (1.2-5.4) K/mm3 PT (12.2-14.9) Sec. INR (0.87-1.13) APTT (24.2-36.6) Sec. POC ABG pCO2 (35-45) POC ABG pO2 (80-105) Sodium 134 L (137-145) mmol/L Chloride 89.5 L (98-107) mmol/L Carbon Dioxide 19 L (22-30) mmol/L BUN 51 H (7-17) mg/dL Creatinine 5.4 H (0.7-1.2) mg/dL Glucose 186 H (65-100) mg/dL POC Glucose (70-105) Total Bilirubin 2.2 H (0.1-1.2) mg/dL AST 88 H (5-40) units/L Alkaline Phosphatase 619 H (35-129) units/L Total Creatine Kinase 321 H (30-135) units/L CK-MB (CK-2) 24.9 H (0.0-4.0) ng/mL CK-MB (CK-2) Rel Index 7.7 H (0-4) Troponin T 1.940 H* (0.00-0.029) ng/mL Albumin 2.4 L (3.9-5) g/dL Cholesterol 203 H (50-199) mg/dL LDL Cholesterol Direct 172 H (50-130) mg/dL HDL Cholesterol 15 L (40-59) mg/dL 08/04/16 08/04/16 08/04/16 Range/Units 02:12 03:05 06:19 WBC (4.5-11.0) K/mm3 RBC (3.65-5.03) M/mm3 Hgb (10.1-14.3) gm/dl Hct (30.3-42.9) % MCV (79-97) fl RDW (13.2-15.2) % Lymphocytes % (Manual) (13.4-35.0) % Nucleated RBC % (0.0-0.9) % Seg Neutrophils # Man (1.8-7.7) K/mm3 Lymphocytes # (Manual) (1.2-5.4) K/mm3 PT (12.2-14.9) Sec. INR (0.87-1.13) APTT (24.2-36.6) Sec. POC ABG pCO2 33.6 L (35-45) POC ABG pO2 398 H 255 H (80-105) Sodium (137-145) mmol/L Chloride (98-107) mmol/L Carbon Dioxide (22-30) mmol/L BUN (7-17) mg/dL Creatinine (0.7-1.2) mg/dL Glucose (65-100) mg/dL POC Glucose 202 H (70-105) Total Bilirubin (0.1-1.2) mg/dL AST (5-40) units/L Alkaline Phosphatase (35-129) units/L Total Creatine Kinase (30-135) units/L CK-MB (CK-2) (0.0-4.0) ng/mL CK-MB (CK-2) Rel Index (0-4) Troponin T (0.00-0.029) ng/mL Albumin (3.9-5) g/dL Cholesterol (50-199) mg/dL LDL Cholesterol Direct (50-130) mg/dL HDL Cholesterol (40-59) mg/dL 08/04/16 08/04/16 Range/Units 06:23 Unknown WBC (4.5-11.0) K/mm3 RBC (3.65-5.03) M/mm3 Hgb (10.1-14.3) gm/dl Hct (30.3-42.9) % MCV (79-97) fl RDW (13.2-15.2) % Lymphocytes % (Manual) (13.4-35.0) % Nucleated RBC % (0.0-0.9) % Seg Neutrophils # Man (1.8-7.7) K/mm3 Lymphocytes # (Manual) (1.2-5.4) K/mm3 PT (12.2-14.9) Sec. INR (0.87-1.13) APTT (24.2-36.6) Sec. POC ABG pCO2 (35-45) POC ABG pO2 (80-105) Sodium (137-145) mmol/L Chloride (98-107) mmol/L Carbon Dioxide (22-30) mmol/L BUN (7-17) mg/dL Creatinine (0.7-1.2) mg/dL Glucose (65-100) mg/dL POC Glucose 192 H (70-105) Total Bilirubin (0.1-1.2) mg/dL AST (5-40) units/L Alkaline Phosphatase (35-129) units/L Total Creatine Kinase 326 H (30-135) units/L CK-MB (CK-2) 27.3 H (0.0-4.0) ng/mL CK-MB (CK-2) Rel Index 8.3 H (0-4) Troponin T 1.910 H* (0.00-0.029) ng/mL Albumin (3.9-5) g/dL Cholesterol (50-199) mg/dL LDL Cholesterol Direct (50-130) mg/dL HDL Cholesterol (40-59) mg/dL
[2016-08-04] MEDS ORDERED: NACL 0.9% 500 ML 500 ML IV ONE (12:13)
[2016-08-04] MEDS: LEVAQUIN PO SCH (13:00)
[2016-08-04] MEDS ORDERED: SUBLIMAZE IV ONE (13:00)
[2016-08-04] MEDS ORDERED: HEPARIN/ 0.45% NACL-25,000 UNIT/500 ML 500 ML IV SCH (13:00)
[2016-08-04 14:04] LABS: Hematocrit 26.6 % (30.3-42.9); Hemoglobin 8.7 gm/dl (10.1-14.3); Mean Corpuscular HGB Conc 33 % (30-34); Mean Corpuscular Hemoglobin 32 pg (28-32); Mean Corpuscular Volume 97 fl (79-97); Platelet Count 318 K/mm3 (140-440); Red Blood Count 2.75 M/mm3 (3.65-5.03); Red Cell Distribution Width 16.8 % (13.2-15.2)
[2016-08-04 14:06] LABS: INR 1.85 (0.87-1.13)
[2016-08-04 14:07] LABS: Partial Thromboplastin Time 49.1 Sec. (24.2-36.6)
[2016-08-04 14:12] LABS: White Blood Count 20.9 K/mm3 (4.5-11.0)
[2016-08-04 14:48] LABS: Anisocytosis 1+; Basophils % (Manual) 0 % (0.0-1.8); Blastocytes % (Manual) 0 %; Eosinophils % (Manual) 0 % (0.0-4.3); Hypochromasia 1+
[2016-08-04 14:49] LABS: Diff Status Complete; Platelet Estimate Consistent w Auto; Target Cells Few
[2016-08-04] MEDS: D50W (25GM) IV PRN ×2 (18:15→19:06)
[2016-08-04 19:12] LABS: BUN/Creatinine Ratio 10.68; Calcium 8.1 mg/dL (8.4-10.2); Chloride 97.9 mmol/L (98-107); Potassium 4.9 mmol/L (3.6-5.0)
--- NOTE | 2016-08-04 21:01 | Progress Note ---
Assessment and Plan Assessment and plan: 1. Cardiac arrest PEA followed by VF; shocked multiple times; downtime aprox 35 min; ROSC obtained ; intubated and started on pressors Troponin elevated likely due to CPR Started on heparin drip Cardiology following 2. Paroxysmal A. fib with RVR Present on admission, received Cardizem and converted back to NSR; anticoagulated with heparin drip initially then switched to Eliquis, now back on heparin drip 3. Acute respiratory failure Secondary to cardiac arrest Intubated Pulmonary consulted 4. Acute encephalopathy Concern for anoxic brain injury 5. Acute exacerbation systolic heart failure/Right heart failure Presented for worsening shortness of breath and lower extremity edema, increased abdominal girth and abdominal pain ECHO showing EF 40%, moderate LVH, dilated right heart chambers, TR, pulmonary hypertension 6. Abdominal pain CT abd/pelvis with no acute abnormality, except for moderate ascites which can be due to her right heart failure Abd US obtained and showing small ascites with no collection big enough for ultrasound-guided paracentesis Concern for mezenteric ischemia, so CTA abd ordered, but not obtained due to acute events 7. ESRD on HD On [facility] Neprology following and assessing need for dialysis and possibility of performing it on a daily basis now 8. Hyperkalemia Managed through HD If unable to be dialyzed, will treat medically 9. Metabolic acidosis Secondary to renal failure vs infecton/sepsis HD, consider bicarbonate drip; follow nephrology recommendations 10. Anemia of CKD Epogen with HD per neprology 11. SIRS On admission CXR with no acute findings; CT abd/pelvis also with no acute process, except for moderate ascitis and anterior abd wall subcutaneous edema WBC trended up Initial blood cultures negative; repeated last night after cardiac event Started on antibiotics empirically 12. HTN Now hypotensive on pressors 13. DM Episodes of hypoglycemia; hold insulin and monitor 14. Hypothyroidism TSH slightly elevated, Syntroid dose increased 15. Malnutrition Due to her multiple comorbidities Currently NPO as she is on pressors 16. DVT prophylaxis On heparin drip The high probability of a clinically significant, sudden or life threatening deterioration of the [] system(s) required my full and direct attention, intervention and personal management. The aggregate critical care time was [35] minutes. This time is in addition to time spent performing reported procedures but includes the following: [x] Data Review and interpretation [x] Patient assessment and monitoring of vital signs [x] Documentation [x] Medication orders and management [x]Discussing with family History Interval history: cardiac arrest last night - went in PEA followed by VT/VF; ACLS protocol including shocks administered and ROSC obtained (downtime aprox. 35 min) now intubated, on 2 pressors long discussion with family (children) Hospitalist Physical - Constitutional Vitals: Temp Pulse Resp BP Pulse Ox 98.6 F 90 22 140/61 100 08/04/16 20:00 08/04/16 20:38 08/04/16 20:30 08/04/16 20:38 08/04/16 20:38 General appearance: Present: severe distress, obese - Neck Neck: Present: supple. Absent: enlarged thyroid, masses or JVD - Respiratory Respiratory effort: other (intubated) Respiratory: bilateral: diminished, negative: rhonchi, wheezing - Cardiovascular Rhythm: regular Heart Sounds: Present: S1 & S2, systolic murmur - Extremities Extremities: no ischemia, abnormal (LE cooler, but palpable pulses) - Abdominal General gastrointestinal: soft, distended, hypoactive bowel sounds, hepatomegaly - Psychiatric Psychiatric: other (unresponsive) Results - Labs CBC & Chem 7: 08/05/16 06:00 08/05/16 06:00 Labs: Laboratory Last Values WBC 20.9 K/mm3 (4.5-11.0) H 08/04/16 Unknown RBC 2.75 M/mm3 (3.65-5.03) L 08/04/16 Unknown Hgb 8.7 gm/dl (10.1-14.3) L 08/04/16 Unknown Hct 26.6 % (30.3-42.9) L 08/04/16 Unknown MCV 97 fl (79-97) 08/04/16 Unknown MCH 32 pg (28-32) 08/04/16 Unknown MCHC 33 % (30-34) 08/04/16 Unknown RDW 16.8 % (13.2-15.2) H 08/04/16 Unknown Plt Count 318 K/mm3 (140-440) 08/04/16 Unknown Lymph % (Auto) 7.8 % (13.4-35.0) L 08/02/16 04:36 [place] % (Auto) 6.4 % (0.0-7.3) 08/02/16 04:36 Eos % (Auto) 0.9 % (0.0-4.3) 08/02/16 04:36 Baso % (Auto) 0.2 % (0.0-1.8) 08/02/16 04:36 Lymph # 1.2 K/mm3 (1.2-5.4) 08/02/16 04:36 [place] # 1.0 K/mm3 (0.0-0.8) H 08/02/16 04:36 Eos # 0.1 K/mm3 (0.0-0.4) 08/02/16 04:36 Baso # 0.0 K/mm3 (0.0-0.1) 08/02/16 04:36 Add Manual Diff Complete 08/04/16 Unknown Total Counted 100 08/04/16 Unknown Seg Neutrophils % Side Laster Staple 08/04/16 Unknown Seg Neuts % (Manual) 89.0 % (40.0-70.0) H 08/04/16 Unknown Band Neutrophils % 3.0 % 08/04/16 Unknown Lymphocytes % (Manual) 4.0 % (13.4-35.0) L 08/04/16 Unknown Reactive Lymphs % (Man) 0 % 08/04/16 Unknown Monocytes % (Manual) 4.0 % (0.0-7.3) 08/04/16 Unknown Eosinophils % (Manual) 0 % (0.0-4.3) 08/04/16 Unknown Basophils % (Manual) 0 % (0.0-1.8) 08/04/16 Unknown Metamyelocytes % 0 % 08/04/16 Unknown Myelocytes % 0 % 08/04/16 Unknown Promyelocytes % 0 % 08/04/16 Unknown Blast Cells % 0 % 08/04/16 Unknown Nucleated RBC % Not Reportable 08/04/16 Unknown Seg Neutrophils # 13.5 K/mm3 (1.8-7.7) H 08/02/16 04:36 Seg Neutrophils # Man 18.6 K/mm3 (1.8-7.7) H 08/04/16 Unknown Band Neutrophils # 0.6 K/mm3 08/04/16 Unknown Lymphocytes # (Manual) 0.8 K/mm3 (1.2-5.4) L 08/04/16 Unknown Abs React Lymphs (Man) 0.0 K/mm3 08/04/16 Unknown Monocytes # (Manual) 0.8 K/mm3 (0.0-0.8) 08/04/16 Unknown Eosinophils # (Manual) 0.0 K/mm3 (0.0-0.4) 08/04/16 Unknown Basophils # (Manual) 0.0 K/mm3 (0.0-0.1) 08/04/16 Unknown Metamyelocytes # 0.0 K/mm3 08/04/16 Unknown Myelocytes # 0.0 K/mm3 08/04/16 Unknown Promyelocytes # 0.0 K/mm3 08/04/16 Unknown Blast Cells # 0.0 K/mm3 08/04/16 Unknown WBC Morphology Not Reportable 08/04/16 Unknown Hypersegmented Neuts Not Reportable 08/04/16 Unknown Hyposegmented Neuts Not Reportable 08/04/16 Unknown Hypogranular Neuts Not Reportable 08/04/16 Unknown Smudge Cells Not Reportable 08/04/16 Unknown Toxic Granulation Not Reportable 08/04/16 Unknown Toxic Vacuolation Not Reportable 08/04/16 Unknown Dohle Bodies Not Reportable 08/04/16 Unknown Pelger-Huet Anomaly Not Reportable 08/04/16 Unknown Mona Rods Not Reportable 08/04/16 Unknown Platelet Estimate Consistent w auto 08/04/16 Unknown Clumped Platelets Not Reportable 08/04/16 Unknown Plt Clumps, EDTA Not Reportable 08/04/16 Unknown Large Platelets Not Reportable 08/04/16 Unknown Giant Platelets Not Reportable 08/04/16 Unknown Platelet Satelliting Not Reportable 08/04/16 Unknown Plt Morphology Comment Not Reportable 08/04/16 Unknown RBC Morphology Not Reportable 08/04/16 Unknown Dimorphic RBCs Not Reportable 08/04/16 Unknown Polychromasia Not Reportable 08/04/16 Unknown Hypochromasia 1+ 08/04/16 Unknown Poikilocytosis Not Reportable 08/04/16 Unknown Anisocytosis 1+ 08/04/16 Unknown Microcytosis Not Reportable 08/04/16 Unknown Macrocytosis Not Reportable 08/04/16 Unknown Spherocytes Not Reportable 08/04/16 Unknown Pappenheimer Bodies Not Reportable 08/04/16 Unknown Sickle Cells Not Reportable 08/04/16 Unknown Target Cells Few 08/04/16 Unknown Tear Drop Cells Not Reportable 08/04/16 Unknown Ovalocytes Not Reportable 08/04/16 Unknown Helmet Cells Not Reportable 08/04/16 Unknown [place] Bodies Not Reportable 08/04/16 Unknown [place] Rings Not Reportable 08/04/16 Unknown [place] Cells Not Reportable 08/04/16 Unknown Bite Cells Not Reportable 08/04/16 Unknown Crenated Cell Not Reportable 08/04/16 Unknown Elliptocytes Not Reportable 08/04/16 Unknown Acanthocytes (Spur) Not Reportable 08/04/16 Unknown Rouleaux Not Reportable 08/04/16 Unknown Hemoglobin C Crystals Not Reportable 08/04/16 Unknown Schistocytes Not Reportable 08/04/16 Unknown Malaria parasites Not Reportable 08/04/16 Unknown Dionicio Bodies Not Reportable 08/04/16 Unknown Hem Pathologist Commnt No 08/04/16 Unknown PT 21.3 Sec. (12.2-14.9) H 08/04/16 Unknown INR 1.85 (0.87-1.13) H 08/04/16 Unknown APTT 49.1 Sec. (24.2-36.6) H 08/04/16 Unknown Heparin Anti-Xa Level 1.19 U.I./ml (0.3-0.7) H 08/04/16 18:43 POC ABG pH 7.379 (7.35-7.45) 08/04/16 06:19 POC ABG pCO2 33.6 (35-45) L 08/04/16 06:19 POC ABG pO2 255 (80-105) H 08/04/16 06:19 POC ABG HCO3 19.8 08/04/16 06:19 POC ABG Total CO2 21 08/04/16 06:19 POC ABG O2 Sat 100 08/04/16 06:19 POC ABG Base Excess -5 08/04/16 06:19 FiO2 75 % 08/04/16 06:19 Sodium 139 mmol/L (137-145) 08/04/16 18:42 Potassium 4.9 mmol/L (3.6-5.0) 08/04/16 18:42 Chloride 97.9 mmol/L (98-107) L 08/04/16 18:42 Carbon Dioxide 20 mmol/L (22-30) L 08/04/16 18:42 Anion Gap 26 mmol/L 08/04/16 18:42 BUN 62 mg/dL (7-17) H 08/04/16 18:42 Creatinine 5.8 mg/dL (0.7-1.2) H 08/04/16 18:42 Estimated GFR 9 ml/min 08/04/16 18:42 BUN/Creatinine Ratio 10.68 % 08/04/16 18:42 Glucose 39 mg/dL (65-100) L* 08/04/16 18:42 POC Glucose 152 (70-105) H 08/04/16 19:33 Calcium 8.1 mg/dL (8.4-10.2) L 08/04/16 18:42 Phosphorus 9.0 mg/dL (2.5-4.5) H 08/02/16 04:36 Magnesium 2.1 mg/dL (1.7-2.3) 08/04/16 01:40 Total Bilirubin 2.2 mg/dL (0.1-1.2) H 08/04/16 01:40 AST 88 units/L (5-40) H 08/04/16 01:40 ALT 35 units/L (7-56) 08/04/16 01:40 Alkaline Phosphatase 619 units/L (35-129) H 08/04/16 01:40 Total Creatine Kinase 381 units/L (30-135) H 08/04/16 Unknown CK-MB (CK-2) 24.0 ng/mL (0.0-4.0) H 08/04/16 Unknown CK-MB (CK-2) Rel Index 6.2 (0-4) H 08/04/16 Unknown Troponin T 2.000 ng/mL (0.00-0.029) H* 08/04/16 Unknown NT-Pro-B Natriuret Pep > 69634 pg/mL (0-450) H 07/30/16 21:34 Total Protein 7.4 g/dL (6.3-8.2) 08/04/16 01:40 Albumin 2.4 g/dL (3.9-5) L 08/04/16 01:40 Albumin/Globulin Ratio 0.5 % 08/04/16 01:40 Triglycerides 81 mg/dL (2-149) 08/04/16 01:40 Cholesterol 203 mg/dL (50-199) H 08/04/16 01:40 LDL Cholesterol Direct 172 mg/dL (50-130) H 08/04/16 01:40 HDL Cholesterol 15 mg/dL (40-59) L 08/04/16 01:40 Cholesterol/HDL Ratio 13.53 % 08/04/16 01:40 TSH 6.790 mlU/mL (0.270-4.200) H 08/02/16 04:36 - Imaging and Cardiology Chest x-ray: image reviewed (ETT, IJ, NGT)
[2016-08-04 21:53] LABS: BUN/Creatinine Ratio 10.87; Calcium 8.2 mg/dL (8.4-10.2); Chloride 91.5 mmol/L (98-107); Potassium 4.7 mmol/L (3.6-5.0)
[2016-08-05] MEDS: D50W (25GM) IV PRN ×3 (01:48→20:20)
[2016-08-05] MEDS: LEVOPHED DRIP 4 MG/NS 250 ML 250 ML IV SCH ×3 (01:49→17:30)
[2016-08-05] MEDS: ZOSYN/NS 2.25 GM/50ML 50 ML IV SCH ×3 (06:36→21:20)
[2016-08-05] MEDS: SYNTHROID PO SCH (06:36)
[2016-08-05 07:08] LABS: Hematocrit 26.5 % (30.3-42.9); Hemoglobin 8.5 gm/dl (10.1-14.3); Mean Corpuscular HGB Conc 32 % (30-34); Mean Corpuscular Hemoglobin 31 pg (28-32); Mean Corpuscular Volume 95 fl (79-97); Platelet Count 262 K/mm3 (140-440); Red Blood Count 2.79 M/mm3 (3.65-5.03); Red Cell Distribution Width 16.8 % (13.2-15.2); White Blood Count 16.5 K/mm3 (4.5-11.0)
[2016-08-05 07:13] LABS: Albumin 1.7 g/dL (3.9-5); Albumin/Globulin Ratio 0.4 %; BUN/Creatinine Ratio 10.96; Bilirubin,Total 1.4 mg/dL (0.1-1.2); Calcium 7.9 mg/dL (8.4-10.2); Chloride 93.9 mmol/L (98-107); Total Protein 6.1 g/dL (6.3-8.2)
[2016-08-05 07:14] LABS: INR 2.01 (0.87-1.13)
--- NOTE | 2016-08-05 09:45 | Progress Note ---
Assessment and Plan - Patient Problems (1) End stage renal disease on dialysis Current Visit: No Status: Chronic Plan to address problem: Will plan to do hemodialysis today. Monitor BP. (2) Ventricular fibrillation Current Visit: Yes Status: Acute Plan to address problem: S/p cardiac arrest. (3) Hyperkalemia Current Visit: Yes Status: Acute Plan to address problem: Improved. (4) Respiratory failure Current Visit: Yes Status: Acute Plan to address problem: On vent. (5) Atrial fibrillation with rapid ventricular response Current Visit: Yes Status: Acute (6) Anemia, chronic renal failure Current Visit: Yes Status: Chronic Plan to address problem: Epogen. (7) Ascites Current Visit: Yes Status: Acute Subjective Date of service: 08/05/16 Principal diagnosis: Cardiac arrest Interval history: Patient is on the vent. Objective - Vital Signs Vital signs: Vital Signs - 12hr 08/04/16 08/04/16 08/04/16 22:00 22:15 22:30 Temperature Pulse Rate 85 86 87 Respiratory 20 20 20 Rate Blood Pressure 120/53 137/62 130/57 O2 Sat by Pulse 100 100 100 Oximetry 08/04/16 08/04/16 08/04/16 22:45 23:00 23:15 Temperature Pulse Rate 93 H 94 H 95 H Respiratory 20 21 18 Rate Blood Pressure 130/57 139/64 139/64 O2 Sat by Pulse 100 100 100 Oximetry 08/04/16 08/04/16 08/04/16 23:30 23:45 23:53 Temperature Pulse Rate 93 H 95 H 95 H Respiratory 20 16 Rate Blood Pressure 138/61 138/61 138/61 O2 Sat by Pulse 100 100 100 Oximetry 08/05/16 08/05/16 08/05/16 00:00 00:15 00:30 Temperature 98.5 F Pulse Rate 96 H 92 H 85 Respiratory 19 20 20 Rate Blood Pressure 137/64 137/64 97/44 O2 Sat by Pulse 100 100 100 Oximetry 08/05/16 08/05/16 08/05/16 00:45 01:00 01:04 Temperature Pulse Rate 90 95 H 95 H Respiratory 20 20 16 Rate Blood Pressure 97/44 141/62 141/62 O2 Sat by Pulse 100 100 100 Oximetry 08/05/16 08/05/16 08/05/16 01:15 01:21 01:30 Temperature Pulse Rate 95 H 93 H 95 H Respiratory 19 15 18 Rate Blood Pressure 141/62 141/62 131/61 O2 Sat by Pulse 100 100 100 Oximetry 08/05/16 08/05/16 08/05/16 01:45 02:00 02:15 Temperature Pulse Rate 96 H 97 H 96 H Respiratory 19 19 20 Rate Blood Pressure 131/61 140/63 140/63 O2 Sat by Pulse 100 100 100 Oximetry 08/05/16 08/05/16 08/05/16 02:30 02:45 03:00 Temperature Pulse Rate 97 H 95 H 93 H Respiratory 19 20 20 Rate Blood Pressure 136/61 136/61 133/55 O2 Sat by Pulse 100 100 100 Oximetry 08/05/16 08/05/16 08/05/16 03:15 03:30 03:45 Temperature Pulse Rate 96 H 94 H 95 H Respiratory 16 20 19 Rate Blood Pressure 133/55 131/56 131/56 O2 Sat by Pulse 100 100 100 Oximetry 08/05/16 08/05/16 08/05/16 04:00 04:15 04:30 Temperature 98.9 F Pulse Rate 95 H 95 H 97 H Respiratory 20 19 14 Rate Blood Pressure 137/55 137/55 133/60 O2 Sat by Pulse 100 100 100 Oximetry 08/05/16 08/05/16 08/05/16 04:45 04:55 05:00 Temperature Pulse Rate 96 H 98 H 94 H Respiratory 19 19 Rate Blood Pressure 133/60 133/60 121/52 O2 Sat by Pulse 100 100 100 Oximetry 08/05/16 08/05/16 08/05/16 05:05 05:15 05:30 Temperature Pulse Rate 96 H 94 H 94 H Respiratory 18 20 19 Rate Blood Pressure 121/52 121/52 129/56 O2 Sat by Pulse 100 100 100 Oximetry 08/05/16 08/05/16 08/05/16 05:45 06:00 06:15 Temperature Pulse Rate 95 H 95 H 89 Respiratory 20 19 20 Rate Blood Pressure 129/56 132/55 132/55 O2 Sat by Pulse 100 100 100 Oximetry 08/05/16 08/05/16 08/05/16 08:00 09:14 09:36 Temperature 98.8 F Pulse Rate 92 H 92 H Respiratory 17 Rate Blood Pressure 116/51 111/48 O2 Sat by Pulse 100 100 Oximetry - General Appearance General appearance: well-developed, well-nourished, intubated, other (on vent, FiO2 30%) EENT: PERRL Neck: supple Respiratory: Present: Other (coarse breath sounds) Cardiology: regular, S1S2 Gastrointestinal: normoactive bowel sounds Integumentary: other (papular rash over the extremities) Neurologic: other (arousable) Musculoskeletal: other (bilateral LE edema, left arm AVF) - Lab 08/06/16 04:45 08/06/16 04:45 Most recent lab results Calcium 7.9 mg/dL (8.4-10.2) L 08/05/16 06:00 Phosphorus 9.0 mg/dL (2.5-4.5) H 08/02/16 04:36 Magnesium 2.1 mg/dL (1.7-2.3) 08/04/16 01:40
[2016-08-05] MEDS: LEVAQUIN PO SCH (10:01)
[2016-08-05] MEDS: ASPIRIN PO SCH (10:01)
[2016-08-05] MEDS ORDERED: NACL 0.9% 1000 ML 100 ML IV PRN (11:09)
[2016-08-05] MEDS ORDERED: D50W (25GM) IV ONE (11:39)
[2016-08-05 11:46] LABS: ISTAT Base Excess -5; ISTAT HCO3 18.9; ISTAT PCO2 26.6 (35-45); ISTAT PH 7.458 (7.35-7.45); ISTAT PO2 128 (80-105); ISTAT SO2 99; ISTAT TCO2 20
[2016-08-05 11:58] LABS: Anisocytosis 1+; Basophils % (Manual) 0 % (0.0-1.8); Blastocytes % (Manual) 0 %; Eosinophils % (Manual) 0 % (0.0-4.3)
[2016-08-05 11:59] LABS: Diff Status Complete; Macrocytosis 1+; Platelet Estimate Consistent w Auto; Target Cells 1+
[2016-08-05] MEDS ORDERED: LANOXIN IV ONE ×2 (13:57→18:00)
--- NOTE | 2016-08-05 14:05 | Progress Note ---
Assessment and Plan - Patient Problems (1) Respiratory failure Current Visit: Yes Status: Acute Plan to address problem: The patient is status post cardiopulmonary arrest, initial rhythm was PEA, developed ventricular fibrillation following ACLS resuscitation efforts. Currently, she is unable to be administered with oral medications due to her ongoing abdominal pathology. She is on IV levophed, which are precludes the use of blood pressure lowering intravenous beta blockers. We will try IV digoxin, (dosed for renal failure) to prophylax intermittent atrial tachycardia arrhythmias. Subjective Date of service: 08/05/16 Principal diagnosis: cardiopulmonary arrest Interval history: Patient is sedated, on the vent, dialysis in progress. Sinus rhythm, but there are intermittent short bursts of narrow complex tachycardia. Objective Vital Signs Temp Pulse Resp BP Pulse Ox Pulse Ox 08/05/16 13:30 97 H 15 117/54 100 08/05/16 13:15 94 H 16 116/52 100 08/05/16 13:01 90 14 113/48 100 08/05/16 13:00 91 H 113/48 08/05/16 12:45 89 15 103/44 100 08/05/16 12:40 100.2 F H 91 H 14 103/44 100 08/05/16 12:30 90 19 106/42 100 08/05/16 12:15 89 13 110/43 100 08/05/16 12:00 100.2 F H 89 15 110/44 100 08/05/16 11:45 85 13 117/39 100 08/05/16 11:30 91 H 15 108/43 100 08/05/16 11:15 91 H 16 102/43 100 08/05/16 11:00 93 H 15 105/43 100 08/05/16 10:50 93 H 18 113/51 100 08/05/16 10:45 94 H 18 113/51 100 08/05/16 10:41 94 H 14 114/49 100 08/05/16 10:30 95 H 16 114/49 100 08/05/16 10:15 95 H 15 119/47 100 08/05/16 10:00 92 H 13 115/46 100 08/05/16 09:45 93 H 12 113/45 100 08/05/16 09:36 92 H 17 111/48 100 08/05/16 09:30 90 19 111/48 100 08/05/16 09:15 91 H 20 108/48 100 08/05/16 09:14 92 H 116/51 100 08/05/16 09:00 92 H 21 116/51 100 08/05/16 08:45 88 18 109/44 100 08/05/16 08:30 92 H 16 118/50 100 08/05/16 08:15 94 H 11 L 127/51 100 08/05/16 08:00 98.8 F 99 H 15 127/51 100 08/05/16 07:45 93 H 21 126/52 100 08/05/16 07:30 92 H 21 126/52 100 08/05/16 07:15 92 H 19 128/56 100 08/05/16 07:00 93 H 16 128/56 98 08/05/16 06:45 93 H 16 132/52 100 08/05/16 06:30 94 H 20 132/52 100 08/05/16 06:29 94 H 11 L 132/55 100 08/05/16 06:15 89 20 132/55 100 08/05/16 06:00 95 H 19 132/55 100 08/05/16 05:45 95 H 20 129/56 100 08/05/16 05:30 94 H 19 129/56 100 08/05/16 05:15 94 H 20 121/52 100 08/05/16 05:05 96 H 18 121/52 100 08/05/16 05:00 94 H 19 121/52 100 08/05/16 04:55 98 H 133/60 100 08/05/16 04:45 96 H 19 133/60 100 08/05/16 04:30 97 H 14 133/60 100 08/05/16 04:15 95 H 19 137/55 100 08/05/16 04:00 98.9 F 95 H 20 137/55 100 08/05/16 03:45 95 H 19 131/56 100 08/05/16 03:30 94 H 20 131/56 100 08/05/16 03:15 96 H 16 133/55 100 08/05/16 03:00 93 H 20 133/55 100 08/05/16 02:45 95 H 20 136/61 100 08/05/16 02:30 97 H 19 136/61 100 08/05/16 02:15 96 H 20 140/63 100 08/05/16 02:00 97 H 19 140/63 100 08/05/16 01:45 96 H 19 131/61 100 08/05/16 01:30 95 H 18 131/61 100 08/05/16 01:21 93 H 15 141/62 100 08/05/16 01:15 95 H 19 141/62 100 08/05/16 01:04 95 H 16 141/62 100 08/05/16 01:00 95 H 20 141/62 100 08/05/16 00:45 90 20 97/44 100 08/05/16 00:30 85 20 97/44 100 08/05/16 00:15 92 H 20 137/64 100 08/05/16 00:00 98.5 F 96 H 19 137/64 100 08/04/16 23:53 95 H 138/61 100 08/04/16 23:45 95 H 16 138/61 100 08/04/16 23:30 93 H 20 138/61 100 08/04/16 23:15 95 H 18 139/64 100 08/04/16 23:00 94 H 21 139/64 100 08/04/16 22:45 93 H 20 130/57 100 08/04/16 22:30 87 20 130/57 100 08/04/16 22:15 86 20 137/62 100 08/04/16 22:00 85 20 120/53 100 08/04/16 21:45 91 H 17 133/60 100 08/04/16 21:30 92 H 19 137/62 100 08/04/16 21:15 90 20 140/61 100 08/04/16 21:03 90 15 133/60 100 08/04/16 21:00 90 20 133/60 100 08/04/16 20:52 91 H 14 140/61 100 08/04/16 20:45 90 14 140/61 100 08/04/16 20:38 90 140/61 100 08/04/16 20:30 90 22 140/61 100 08/04/16 20:15 89 20 134/60 100 08/04/16 20:01 87 18 134/60 100 08/04/16 20:00 98.6 F 08/04/16 19:45 85 23 117/50 100 08/04/16 19:30 77 20 117/50 100 08/04/16 19:15 72 20 95/41 100 08/04/16 19:00 69 20 95/41 96 08/04/16 18:45 71 20 90/39 100 08/04/16 18:30 73 20 90/39 100 08/04/16 18:15 87 22 88/40 100 08/04/16 18:00 82 22 111/51 100 08/04/16 17:45 76 19 88/40 100 08/04/16 17:30 73 21 88/40 100 08/04/16 17:15 83 19 114/51 100 08/04/16 17:00 82 17 114/51 100 08/04/16 16:45 74 20 100/44 100 08/04/16 16:30 76 20 100/44 99 08/04/16 16:15 75 20 98/45 98 08/04/16 16:00 75 20 98/45 100 08/04/16 15:45 73 20 95/41 99 08/04/16 15:42 73 110/50 98 08/04/16 15:41 98.8 F 08/04/16 15:31 74 20 110/50 97 08/04/16 15:15 87 14 118/54 100 08/04/16 15:00 86 22 118/54 100 08/04/16 14:45 88 22 116/57 100 08/04/16 14:31 87 17 126/57 100 08/04/16 14:15 88 17 126/57 100 - Physical Examination General: No Apparent Distress HEENT: Positive: PERRL Neck: Positive: trachea midline Cardiac: Positive: Reg Rate and Rhythm Lungs: Positive: Decreased Breath Sounds Neuro: Positive: Other ([place], on the vent) Abdomen: Positive: Firm, Distended Skin: Positive: Clear Extremities: Present: edema (trace), Cold - Labs and Meds Cardiac Enzymes 08/04/16 08/05/16 Range/Units Unknown 06:00 AST 61 H (5-40) units/L CK-MB (CK-2) 24.0 H (0.0-4.0) ng/mL Coagulation 08/04/16 08/05/16 Range/Units Unknown 06:00 PT 21.3 H 22.8 H (12.2-14.9) Sec. INR 1.85 H 2.01 H (0.87-1.13) APTT 49.1 H (24.2-36.6) Sec. CBC 08/04/16 08/05/16 Range/Units Unknown 06:00 WBC 20.9 H 16.5 H (4.5-11.0) K/mm3 RBC 2.75 L 2.79 L (3.65-5.03) M/mm3 Hgb 8.7 L 8.5 L (10.1-14.3) gm/dl Hct 26.6 L 26.5 L (30.3-42.9) % Plt Count 318 262 (140-440) K/mm3 Lymph # Head Worker [place] # Head Worker Eos # Head Worker Baso # Head Worker Comprehensive Metabolic Panel 08/04/16 08/04/16 08/05/16 Range/Units 18:42 21:20 06:00 Sodium 139 132 L D 135 L (137-145) mmol/L Potassium 4.9 4.7 5.0 (3.6-5.0) mmol/L Chloride 97.9 L 91.5 L 93.9 L (98-107) mmol/L Carbon Dioxide 20 L 19 L 18 L (22-30) mmol/L BUN 62 H 62 H 68 H (7-17) mg/dL Creatinine 5.8 H 5.7 H 6.2 H (0.7-1.2) mg/dL Glucose 39 L* 103 H 220 H (65-100) mg/dL Calcium 8.1 L 8.2 L 7.9 L (8.4-10.2) mg/dL AST 61 H (5-40) units/L ALT 29 (7-56) units/L Alkaline Phosphatase 446 H (35-129) units/L Total Protein 6.1 L (6.3-8.2) g/dL Albumin 1.7 L (3.9-5) g/dL
--- NOTE | 2016-08-05 15:01 | Progress Note ---
Assessment and Plan 51-year-old female with end-stage renal disease and presentation to the hospital with new onset atrial fibrillation with swelling of the lower extremities, abdomen, and dyspnea on exertion. She also had abdominal pain and lower extremity pain upon presentation. Her atrial fibrillation has converted, and she has had decreased swelling, but since then had cardiopulmonary arrest. Patient being worked up for abdominal pain. CT angiography of the abdomen and pelvis can be performed, when patient stable, to exclude mesenteric ischemia. Lower extremities warm today. Venous ultrasound shows no DVT. Left upper extremity dialysis access actively being used without issue. Subjective Date of service: 08/05/16 Principal diagnosis: cardiopulmonary arrest Interval history: Actively receiving dialysis. Intubated. Pressors being weaned off. Feet are warm. Blood pressure improved. Objective - Constitutional Vitals: Vital Signs - 12hr 08/05/16 08/05/16 08/05/16 03:00 03:15 03:30 Temperature Pulse Rate 93 H 96 H 94 H Respiratory 20 16 20 Rate Blood Pressure 133/55 133/55 131/56 O2 Sat by Pulse 100 100 100 Oximetry O2 Sat by Pulse Oximetry [ Anterior Bilateral Throughout] 08/05/16 08/05/16 08/05/16 03:45 04:00 04:15 Temperature 98.9 F Pulse Rate 95 H 95 H 95 H Respiratory 19 20 19 Rate Blood Pressure 131/56 137/55 137/55 O2 Sat by Pulse 100 100 100 Oximetry O2 Sat by Pulse Oximetry [ Anterior Bilateral Throughout] 08/05/16 08/05/16 08/05/16 04:30 04:45 04:55 Temperature Pulse Rate 97 H 96 H 98 H Respiratory 14 19 Rate Blood Pressure 133/60 133/60 133/60 O2 Sat by Pulse 100 100 100 Oximetry O2 Sat by Pulse Oximetry [ Anterior Bilateral Throughout] 08/05/16 08/05/16 08/05/16 05:00 05:05 05:15 Temperature Pulse Rate 94 H 96 H 94 H Respiratory 19 18 20 Rate Blood Pressure 121/52 121/52 121/52 O2 Sat by Pulse 100 100 100 Oximetry O2 Sat by Pulse Oximetry [ Anterior Bilateral Throughout] 08/05/16 08/05/16 08/05/16 05:30 05:45 06:00 Temperature Pulse Rate 94 H 95 H 95 H Respiratory 19 20 19 Rate Blood Pressure 129/56 129/56 132/55 O2 Sat by Pulse 100 100 100 Oximetry O2 Sat by Pulse Oximetry [ Anterior Bilateral Throughout] 08/05/16 08/05/16 08/05/16 06:15 06:29 06:30 Temperature Pulse Rate 89 94 H 94 H Respiratory 20 11 L 20 Rate Blood Pressure 132/55 132/55 132/52 O2 Sat by Pulse 100 100 100 Oximetry O2 Sat by Pulse Oximetry [ Anterior Bilateral Throughout] 08/05/16 08/05/16 08/05/16 06:45 07:00 07:15 Temperature Pulse Rate 93 H 93 H 92 H Respiratory 16 16 19 Rate Blood Pressure 132/52 128/56 128/56 O2 Sat by Pulse 100 98 100 Oximetry O2 Sat by Pulse Oximetry [ Anterior Bilateral Throughout] 08/05/16 08/05/16 08/05/16 07:30 07:45 08:00 Temperature 98.8 F Pulse Rate 92 H 93 H 99 H Respiratory 21 21 15 Rate Blood Pressure 126/52 126/52 127/51 O2 Sat by Pulse 100 100 100 Oximetry O2 Sat by Pulse Oximetry [ Anterior Bilateral Throughout] 08/05/16 08/05/16 08/05/16 08:15 08:30 08:45 Temperature Pulse Rate 94 H 92 H 88 Respiratory 11 L 16 18 Rate Blood Pressure 127/51 118/50 109/44 O2 Sat by Pulse 100 100 100 Oximetry O2 Sat by Pulse Oximetry [ Anterior Bilateral Throughout] 08/05/16 08/05/16 08/05/16 09:00 09:14 09:15 Temperature Pulse Rate 92 H 92 H 91 H Respiratory 21 20 Rate Blood Pressure 116/51 116/51 108/48 O2 Sat by Pulse 100 100 100 Oximetry O2 Sat by Pulse Oximetry [ Anterior Bilateral Throughout] 08/05/16 08/05/16 08/05/16 09:30 09:36 09:45 Temperature Pulse Rate 90 92 H 93 H Respiratory 19 17 12 Rate Blood Pressure 111/48 111/48 113/45 O2 Sat by Pulse 100 100 100 Oximetry O2 Sat by Pulse Oximetry [ Anterior Bilateral Throughout] 08/05/16 08/05/16 08/05/16 10:00 10:15 10:30 Temperature Pulse Rate 92 H 95 H 95 H Respiratory 13 15 16 Rate Blood Pressure 115/46 119/47 114/49 O2 Sat by Pulse 100 100 100 Oximetry O2 Sat by Pulse Oximetry [ Anterior Bilateral Throughout] 08/05/16 08/05/16 08/05/16 10:41 10:45 10:50 Temperature Pulse Rate 94 H 94 H 93 H Respiratory 14 18 18 Rate Blood Pressure 114/49 113/51 113/51 O2 Sat by Pulse 100 100 100 Oximetry O2 Sat by Pulse Oximetry [ Anterior Bilateral Throughout] 08/05/16 08/05/16 08/05/16 11:00 11:15 11:30 Temperature Pulse Rate 93 H 91 H 91 H Respiratory 15 16 15 Rate Blood Pressure 105/43 102/43 108/43 O2 Sat by Pulse 100 100 100 Oximetry O2 Sat by Pulse Oximetry [ Anterior Bilateral Throughout] 08/05/16 08/05/16 08/05/16 11:45 12:00 12:15 Temperature 100.2 F H Pulse Rate 85 89 89 Respiratory 13 15 13 Rate Blood Pressure 117/39 110/44 110/43 O2 Sat by Pulse 100 100 100 Oximetry O2 Sat by Pulse Oximetry [ Anterior Bilateral Throughout] 08/05/16 08/05/16 08/05/16 12:30 12:40 12:45 Temperature 100.2 F H Pulse Rate 90 91 H 89 Respiratory 19 14 15 Rate Blood Pressure 106/42 103/44 103/44 O2 Sat by Pulse 100 100 Oximetry O2 Sat by Pulse 100 Oximetry [ Anterior Bilateral Throughout] 08/05/16 08/05/16 08/05/16 13:00 13:01 13:15 Temperature Pulse Rate 91 H 90 94 H Respiratory 14 16 Rate Blood Pressure 113/48 113/48 116/52 O2 Sat by Pulse 100 100 Oximetry O2 Sat by Pulse Oximetry [ Anterior Bilateral Throughout] 08/05/16 08/05/16 08/05/16 13:30 13:45 14:00 Temperature Pulse Rate 97 H 101 H 101 H Respiratory 15 Rate Blood Pressure 117/54 117/58 126/56 O2 Sat by Pulse 100 Oximetry O2 Sat by Pulse Oximetry [ Anterior Bilateral Throughout] 08/05/16 08/05/16 08/05/16 14:15 14:30 14:45 Temperature Pulse Rate 101 H 102 H 100 H Respiratory Rate Blood Pressure 129/54 129/56 122/55 O2 Sat by Pulse Oximetry O2 Sat by Pulse Oximetry [ Anterior Bilateral Throughout] General appearance: Present: other (intubated) - EENT ENT: other (intubated) - Respiratory Respiratory effort: other (intubated) Extremities: normal temperature, normal color - Gastrointestinal General gastrointestinal: Present: soft - Labs CBC & Chem 7: 08/05/16 06:00 08/05/16 06:00 Labs: Abnormal lab results 08/04/16 08/04/16 08/04/16 Range/Units 18:10 18:42 18:43 WBC (4.5-11.0) K/mm3 RBC (3.65-5.03) M/mm3 Hgb (10.1-14.3) gm/dl Hct (30.3-42.9) % RDW (13.2-15.2) % Seg Neuts % (Manual) (40.0-70.0) % Lymphocytes % (Manual) (13.4-35.0) % Nucleated RBC % (0.0-0.9) % Seg Neutrophils # Man (1.8-7.7) K/mm3 PT (12.2-14.9) Sec. INR (0.87-1.13) Heparin Anti-Xa Level 1.19 H (0.3-0.7) U.I./ml POC ABG pH (7.35-7.45) POC ABG pCO2 (35-45) POC ABG pO2 (80-105) Sodium (137-145) mmol/L Chloride 97.9 L (98-107) mmol/L Carbon Dioxide 20 L (22-30) mmol/L BUN 62 H (7-17) mg/dL Creatinine 5.8 H (0.7-1.2) mg/dL Glucose 39 L* (65-100) mg/dL POC Glucose < 40 L (70-105) Calcium 8.1 L (8.4-10.2) mg/dL Total Bilirubin (0.1-1.2) mg/dL AST (5-40) units/L Alkaline Phosphatase (35-129) units/L Total Protein (6.3-8.2) g/dL Albumin (3.9-5) g/dL 08/04/16 08/04/16 08/05/16 Range/Units 19:33 21:20 01:19 WBC (4.5-11.0) K/mm3 RBC (3.65-5.03) M/mm3 Hgb (10.1-14.3) gm/dl Hct (30.3-42.9) % RDW (13.2-15.2) % Seg Neuts % (Manual) (40.0-70.0) % Lymphocytes % (Manual) (13.4-35.0) % Nucleated RBC % (0.0-0.9) % Seg Neutrophils # Man (1.8-7.7) K/mm3 PT (12.2-14.9) Sec. INR (0.87-1.13) Heparin Anti-Xa Level (0.3-0.7) U.I./ml POC ABG pH (7.35-7.45) POC ABG pCO2 (35-45) POC ABG pO2 (80-105) Sodium 132 L D (137-145) mmol/L Chloride 91.5 L (98-107) mmol/L Carbon Dioxide 19 L (22-30) mmol/L BUN 62 H (7-17) mg/dL Creatinine 5.7 H (0.7-1.2) mg/dL Glucose 103 H (65-100) mg/dL POC Glucose 152 H 65 L (70-105) Calcium 8.2 L (8.4-10.2) mg/dL Total Bilirubin (0.1-1.2) mg/dL AST (5-40) units/L Alkaline Phosphatase (35-129) units/L Total Protein (6.3-8.2) g/dL Albumin (3.9-5) g/dL 08/05/16 08/05/16 08/05/16 Range/Units 06:00 06:00 06:00 WBC 16.5 H (4.5-11.0) K/mm3 RBC 2.79 L (3.65-5.03) M/mm3 Hgb 8.5 L (10.1-14.3) gm/dl Hct 26.5 L (30.3-42.9) % RDW 16.8 H (13.2-15.2) % Seg Neuts % (Manual) 90.0 H (40.0-70.0) % Lymphocytes % (Manual) 7.0 L (13.4-35.0) % Nucleated RBC % 2.0 H (0.0-0.9) % Seg Neutrophils # Man 14.9 H (1.8-7.7) K/mm3 PT 22.8 H (12.2-14.9) Sec. INR 2.01 H (0.87-1.13) Heparin Anti-Xa Level (0.3-0.7) U.I./ml POC ABG pH (7.35-7.45) POC ABG pCO2 (35-45) POC ABG pO2 (80-105) Sodium 135 L (137-145) mmol/L Chloride 93.9 L (98-107) mmol/L Carbon Dioxide 18 L (22-30) mmol/L BUN 68 H (7-17) mg/dL Creatinine 6.2 H (0.7-1.2) mg/dL Glucose 220 H (65-100) mg/dL POC Glucose (70-105) Calcium 7.9 L (8.4-10.2) mg/dL Total Bilirubin 1.4 H (0.1-1.2) mg/dL AST 61 H (5-40) units/L Alkaline Phosphatase 446 H (35-129) units/L Total Protein 6.1 L (6.3-8.2) g/dL Albumin 1.7 L (3.9-5) g/dL 08/05/16 08/05/16 08/05/16 Range/Units 06:00 06:57 11:10 WBC (4.5-11.0) K/mm3 RBC (3.65-5.03) M/mm3 Hgb (10.1-14.3) gm/dl Hct (30.3-42.9) % RDW (13.2-15.2) % Seg Neuts % (Manual) (40.0-70.0) % Lymphocytes % (Manual) (13.4-35.0) % Nucleated RBC % (0.0-0.9) % Seg Neutrophils # Man (1.8-7.7) K/mm3 PT (12.2-14.9) Sec. INR (0.87-1.13) Heparin Anti-Xa Level 0.80 H (0.3-0.7) U.I./ml POC ABG pH 7.458 H (7.35-7.45) POC ABG pCO2 26.6 L (35-45) POC ABG pO2 128 H (80-105) Sodium (137-145) mmol/L Chloride (98-107) mmol/L Carbon Dioxide (22-30) mmol/L BUN (7-17) mg/dL Creatinine (0.7-1.2) mg/dL Glucose (65-100) mg/dL POC Glucose 118 H (70-105) Calcium (8.4-10.2) mg/dL Total Bilirubin (0.1-1.2) mg/dL AST (5-40) units/L Alkaline Phosphatase (35-129) units/L Total Protein (6.3-8.2) g/dL Albumin (3.9-5) g/dL 08/05/16 Range/Units 12:00 WBC (4.5-11.0) K/mm3 RBC (3.65-5.03) M/mm3 Hgb (10.1-14.3) gm/dl Hct (30.3-42.9) % RDW (13.2-15.2) % Seg Neuts % (Manual) (40.0-70.0) % Lymphocytes % (Manual) (13.4-35.0) % Nucleated RBC % (0.0-0.9) % Seg Neutrophils # Man (1.8-7.7) K/mm3 PT (12.2-14.9) Sec. INR (0.87-1.13) Heparin Anti-Xa Level 0.75 H (0.3-0.7) U.I./ml POC ABG pH (7.35-7.45) POC ABG pCO2 (35-45) POC ABG pO2 (80-105) Sodium (137-145) mmol/L Chloride (98-107) mmol/L Carbon Dioxide (22-30) mmol/L BUN (7-17) mg/dL Creatinine (0.7-1.2) mg/dL Glucose (65-100) mg/dL POC Glucose (70-105) Calcium (8.4-10.2) mg/dL Total Bilirubin (0.1-1.2) mg/dL AST (5-40) units/L Alkaline Phosphatase (35-129) units/L Total Protein (6.3-8.2) g/dL Albumin (3.9-5) g/dL
--- NOTE | 2016-08-05 15:14 | Progress Note ---
Assessment and Plan Assessment and plan: 1. Cardiac arrest PEA followed by [facility] 08/04; shocked multiple times; downtime aprox 35 min; ROSC obtained; intubated and started on pressors Troponin elevated likely due to CPR Now on levophed and heparin drip Cardiology following; if she recovers, plan for cath 2. Paroxysmal A. fib with RVR Present on admission, received Cardizem and converted back to NSR; anticoagulated with heparin drip initially then switched to Eliquis, now back on heparin drip 3. Acute respiratory failure Secondary to cardiac arrest Intubated 4. Acute encephalopathy Concern for anoxic brain injury 5. Acute exacerbation systolic heart failure/Right heart failure Presented for worsening shortness of breath and lower extremity edema, increased abdominal girth and abdominal pain ECHO showing EF 40%, moderate LVH, dilated right heart chambers, TR, pulmonary hypertension 6. Abdominal pain CT abd/pelvis with no acute abnormality, except for moderate ascites which can be due to her right heart failure Abd US obtained and showing small ascites with no collection big enough for ultrasound-guided paracentesis Concern for mezenteric ischemia, so CTA abd ordered, but not obtained due to acute events 7. ESRD on HD On [facility] Neprology following and assessing need for dialysis and possibility of performing it on a daily basis now 8. Hyperkalemia Managed through HD If unable to be dialyzed, will treat medically 9. Metabolic acidosis Secondary to renal failure vs infecton/sepsis HD, consider bicarbonate drip; follow nephrology recommendations 10. Anemia of CKD Epogen with HD per neprology 11. SIRS On admission CXR with no acute findings; CT abd/pelvis also with no acute process, except for moderate ascitis and anterior abd wall subcutaneous edema WBC trended up Initial blood cultures negative; repeated 08/04 after cardiac event and negative at 24 hours Started on antibiotics empirically, if cultures remai neg, will d/c 12. HTN Now hypotensive on pressors 13. DM Episodes of hypoglycemia; hold insulin and monitor 14. Hypothyroidism TSH slightly elevated, Syntroid dose increased 15. Malnutrition Due to her multiple comorbidities Currently NPO as she is on pressors 16. DVT prophylaxis On heparin drip 17. Prognosis is guarded; discussed with family The high probability of a clinically significant, sudden or life threatening deterioration of the [] system(s) required my full and direct attention, intervention and personal management. The aggregate critical care time was [35] minutes. This time is in addition to time spent performing reported procedures but includes the following: [x] Data Review and interpretation [x] Patient assessment and monitoring of vital signs [x] Documentation [x] Medication orders and management [x]Discussing with family History Interval history: On levophed and heparin drip; no continuous sedation; unresponsive; opens eyes spontaneously, but there is no tracking Family at bedside Hospitalist Physical - Constitutional Vitals: Temp Pulse Resp BP Pulse Ox 100.2 F H 100 H 15 122/55 100 08/05/16 12:40 08/05/16 14:45 08/05/16 13:30 08/05/16 14:45 08/05/16 13:30 General appearance: Present: mild distress - Neck Neck: Present: supple. Absent: enlarged thyroid, masses or JVD - Respiratory Respiratory effort: other (intubated) Respiratory: bilateral: diminished, rhonchi, negative: wheezing - Cardiovascular Rhythm: other (tachycardic) Heart Sounds: Present: S1 & S2. Absent: systolic murmur - Extremities Extremities: no ischemia, abnormal (calf/ feet cooler, but palpable pulses) Extremity abnormal: edema - Abdominal General gastrointestinal: soft, distended, hypoactive bowel sounds, no hernia - Psychiatric Psychiatric: other (unresponsive) - Neurologic Neurologic: CNII-XII intact, no focal deficits Results - Labs CBC & Chem 7: 08/05/16 06:00 08/05/16 06:00 Labs: Laboratory Last Values WBC 16.5 K/mm3 (4.5-11.0) H 08/05/16 06:00 RBC 2.79 M/mm3 (3.65-5.03) L 08/05/16 06:00 Hgb 8.5 gm/dl (10.1-14.3) L 08/05/16 06:00 Hct 26.5 % (30.3-42.9) L 08/05/16 06:00 MCV 95 fl (79-97) 08/05/16 06:00 MCH 31 pg (28-32) 08/05/16 06:00 MCHC 32 % (30-34) 08/05/16 06:00 RDW 16.8 % (13.2-15.2) H 08/05/16 06:00 Plt Count 262 K/mm3 (140-440) 08/05/16 06:00 Lymph % (Auto) Waitress 08/05/16 06:00 [place] % (Auto) Waitress 08/05/16 06:00 Eos % (Auto) Waitress 08/05/16 06:00 Baso % (Auto) Waitress 08/05/16 06:00 Lymph # Waitress 08/05/16 06:00 [place] # Waitress 08/05/16 06:00 Eos # Waitress 08/05/16 06:00 Baso # Waitress 08/05/16 06:00 Add Manual Diff Complete 08/05/16 06:00 Total Counted 100 08/05/16 06:00 Seg Neutrophils % Waitress 08/05/16 06:00 Seg Neuts % (Manual) 90.0 % (40.0-70.0) H 08/05/16 06:00 Band Neutrophils % 0 % 08/05/16 06:00 Lymphocytes % (Manual) 7.0 % (13.4-35.0) L 08/05/16 06:00 Reactive Lymphs % (Man) 0 % 08/05/16 06:00 Monocytes % (Manual) 3.0 % (0.0-7.3) 08/05/16 06:00 Eosinophils % (Manual) 0 % (0.0-4.3) 08/05/16 06:00 Basophils % (Manual) 0 % (0.0-1.8) 08/05/16 06:00 Metamyelocytes % 0 % 08/05/16 06:00 Myelocytes % 0 % 08/05/16 06:00 Promyelocytes % 0 % 08/05/16 06:00 Blast Cells % 0 % 08/05/16 06:00 Nucleated RBC % 2.0 % (0.0-0.9) H 08/05/16 06:00 Seg Neutrophils # Waitress 08/05/16 06:00 Seg Neutrophils # Man 14.9 K/mm3 (1.8-7.7) H 08/05/16 06:00 Band Neutrophils # 0.0 K/mm3 08/05/16 06:00 Lymphocytes # (Manual) 1.2 K/mm3 (1.2-5.4) 08/05/16 06:00 Abs React Lymphs (Man) 0.0 K/mm3 08/05/16 06:00 Monocytes # (Manual) 0.5 K/mm3 (0.0-0.8) 08/05/16 06:00 Eosinophils # (Manual) 0.0 K/mm3 (0.0-0.4) 08/05/16 06:00 Basophils # (Manual) 0.0 K/mm3 (0.0-0.1) 08/05/16 06:00 Metamyelocytes # 0.0 K/mm3 08/05/16 06:00 Myelocytes # 0.0 K/mm3 08/05/16 06:00 Promyelocytes # 0.0 K/mm3 08/05/16 06:00 Blast Cells # 0.0 K/mm3 08/05/16 06:00 WBC Morphology Not Reportable 08/05/16 06:00 Hypersegmented Neuts Not Reportable 08/05/16 06:00 Hyposegmented Neuts Not Reportable 08/05/16 06:00 Hypogranular Neuts Not Reportable 08/05/16 06:00 Smudge Cells Not Reportable 08/05/16 06:00 Toxic Granulation Not Reportable 08/05/16 06:00 Toxic Vacuolation Not Reportable 08/05/16 06:00 Dohle Bodies Not Reportable 08/05/16 06:00 Pelger-Huet Anomaly Not Reportable 08/05/16 06:00 Mona Rods Not Reportable 08/05/16 06:00 Platelet Estimate Consistent w auto 08/05/16 06:00 Clumped Platelets Not Reportable 08/05/16 06:00 Plt Clumps, EDTA Not Reportable 08/05/16 06:00 Large Platelets Not Reportable 08/05/16 06:00 Giant Platelets Not Reportable 08/05/16 06:00 Platelet Satelliting Not Reportable 08/05/16 06:00 Plt Morphology Comment Not Reportable 08/05/16 06:00 RBC Morphology Not Reportable 08/05/16 06:00 Dimorphic RBCs Not Reportable 08/05/16 06:00 Polychromasia Not Reportable 08/05/16 06:00 Hypochromasia Not Reportable 08/05/16 06:00 Poikilocytosis Not Reportable 08/05/16 06:00 Anisocytosis 1+ 08/05/16 06:00 Microcytosis Not Reportable 08/05/16 06:00 Macrocytosis 1+ 08/05/16 06:00 Spherocytes Not Reportable 08/05/16 06:00 Pappenheimer Bodies Not Reportable 08/05/16 06:00 Sickle Cells Not Reportable 08/05/16 06:00 Target Cells 1+ 08/05/16 06:00 Tear Drop Cells Not Reportable 08/05/16 06:00 Ovalocytes Not Reportable 08/05/16 06:00 Helmet Cells Not Reportable 08/05/16 06:00 [place] Bodies Not Reportable 08/05/16 06:00 [place] Rings Not Reportable 08/05/16 06:00 [place] Cells Not Reportable 08/05/16 06:00 Bite Cells Not Reportable 08/05/16 06:00 Crenated Cell Not Reportable 08/05/16 06:00 Elliptocytes Not Reportable 08/05/16 06:00 Acanthocytes (Spur) Not Reportable 08/05/16 06:00 Rouleaux Not Reportable 08/05/16 06:00 Hemoglobin C Crystals Not Reportable 08/05/16 06:00 Schistocytes Not Reportable 08/05/16 06:00 Malaria parasites Not Reportable 08/05/16 06:00 Dionicio Bodies Not Reportable 08/05/16 06:00 Hem Pathologist Commnt No 08/05/16 06:00 PT 22.8 Sec. (12.2-14.9) H 08/05/16 06:00 INR 2.01 (0.87-1.13) H 08/05/16 06:00 APTT 49.1 Sec. (24.2-36.6) H 08/04/16 Unknown Heparin Anti-Xa Level 0.75 U.I./ml (0.3-0.7) H 08/05/16 12:00 POC ABG pH 7.458 (7.35-7.45) H 08/05/16 11:10 POC ABG pCO2 26.6 (35-45) L 08/05/16 11:10 POC ABG pO2 128 (80-105) H 08/05/16 11:10 POC ABG HCO3 18.9 08/05/16 11:10 POC ABG Total CO2 20 08/05/16 11:10 POC ABG O2 Sat 99 08/05/16 11:10 POC ABG Base Excess -5 08/05/16 11:10 FiO2 30 % 08/05/16 11:10 Sodium 135 mmol/L (137-145) L 08/05/16 06:00 Potassium 5.0 mmol/L (3.6-5.0) 08/05/16 06:00 Chloride 93.9 mmol/L (98-107) L 08/05/16 06:00 Carbon Dioxide 18 mmol/L (22-30) L 08/05/16 06:00 Anion Gap 28 mmol/L 08/05/16 06:00 BUN 68 mg/dL (7-17) H 08/05/16 06:00 Creatinine 6.2 mg/dL (0.7-1.2) H 08/05/16 06:00 Estimated GFR 9 ml/min 08/05/16 06:00 BUN/Creatinine Ratio 10.96 % 08/05/16 06:00 Glucose 220 mg/dL (65-100) H 08/05/16 06:00 POC Glucose 118 (70-105) H 08/05/16 06:57 Calcium 7.9 mg/dL (8.4-10.2) L 08/05/16 06:00 Phosphorus 9.0 mg/dL (2.5-4.5) H 08/02/16 04:36 Magnesium 2.1 mg/dL (1.7-2.3) 08/04/16 01:40 Total Bilirubin 1.4 mg/dL (0.1-1.2) H 08/05/16 06:00 AST 61 units/L (5-40) H 08/05/16 06:00 ALT 29 units/L (7-56) 08/05/16 06:00 Alkaline Phosphatase 446 units/L (35-129) H 08/05/16 06:00 Total Creatine Kinase 381 units/L (30-135) H 08/04/16 Unknown CK-MB (CK-2) 24.0 ng/mL (0.0-4.0) H 08/04/16 Unknown CK-MB (CK-2) Rel Index 6.2 (0-4) H 08/04/16 Unknown Troponin T 2.000 ng/mL (0.00-0.029) H* 08/04/16 Unknown NT-Pro-B Natriuret Pep > 60455 pg/mL (0-450) H 07/30/16 21:34 Total Protein 6.1 g/dL (6.3-8.2) L 08/05/16 06:00 Albumin 1.7 g/dL (3.9-5) L 08/05/16 06:00 Albumin/Globulin Ratio 0.4 % 08/05/16 06:00 Triglycerides 81 mg/dL (2-149) 08/04/16 01:40 Cholesterol 203 mg/dL (50-199) H 08/04/16 01:40 LDL Cholesterol Direct 172 mg/dL (50-130) H 08/04/16 01:40 HDL Cholesterol 15 mg/dL (40-59) L 08/04/16 01:40 Cholesterol/HDL Ratio 13.53 % 08/04/16 01:40 TSH 6.790 mlU/mL (0.270-4.200) H 08/02/16 04:36 - Imaging and Cardiology Chest x-ray: image reviewed
--- NOTE | 2016-08-05 15:35 | Progress Note ---
Assessment and Plan 51 y/o female, admitted to the ICU with cardiac arrest, now with encephalopathy , hypotension and ESRD on HD. 1. mental status has greatly improved. Continue to hold sedation. Will attempt extubation in am 2. Use levophed for bp. Goal is a map of 65, wean if greater 3. HD today per renal 4. Follow up cardiology recs 5. Prognosis improving, given improved mental status. Remains guarded CCT 31 minutes. Subjective Date of service: 08/05/16 Principal diagnosis: cardiopulmonary arrest Interval history: No acute events. Awake today. Alert. Follows commands. tolerating HD. Still on levophed 8 mcgs but no issues. Family out in waiting room. Objective Vital Signs - 12hr 08/05/16 08/05/16 08/05/16 03:45 04:00 04:15 Temperature 98.9 F Pulse Rate 95 H 95 H 95 H Respiratory 19 20 19 Rate Blood Pressure 131/56 137/55 137/55 O2 Sat by Pulse 100 100 100 Oximetry O2 Sat by Pulse Oximetry [ Anterior Bilateral Throughout] 08/05/16 08/05/16 08/05/16 04:30 04:45 04:55 Temperature Pulse Rate 97 H 96 H 98 H Respiratory 14 19 Rate Blood Pressure 133/60 133/60 133/60 O2 Sat by Pulse 100 100 100 Oximetry O2 Sat by Pulse Oximetry [ Anterior Bilateral Throughout] 08/05/16 08/05/16 08/05/16 05:00 05:05 05:15 Temperature Pulse Rate 94 H 96 H 94 H Respiratory 19 18 20 Rate Blood Pressure 121/52 121/52 121/52 O2 Sat by Pulse 100 100 100 Oximetry O2 Sat by Pulse Oximetry [ Anterior Bilateral Throughout] 08/05/16 08/05/16 08/05/16 05:30 05:45 06:00 Temperature Pulse Rate 94 H 95 H 95 H Respiratory 19 20 19 Rate Blood Pressure 129/56 129/56 132/55 O2 Sat by Pulse 100 100 100 Oximetry O2 Sat by Pulse Oximetry [ Anterior Bilateral Throughout] 08/05/16 08/05/16 08/05/16 06:15 06:29 06:30 Temperature Pulse Rate 89 94 H 94 H Respiratory 20 11 L 20 Rate Blood Pressure 132/55 132/55 132/52 O2 Sat by Pulse 100 100 100 Oximetry O2 Sat by Pulse Oximetry [ Anterior Bilateral Throughout] 08/05/16 08/05/16 08/05/16 06:45 07:00 07:15 Temperature Pulse Rate 93 H 93 H 92 H Respiratory 16 16 19 Rate Blood Pressure 132/52 128/56 128/56 O2 Sat by Pulse 100 98 100 Oximetry O2 Sat by Pulse Oximetry [ Anterior Bilateral Throughout] 08/05/16 08/05/16 08/05/16 07:30 07:45 08:00 Temperature 98.8 F Pulse Rate 92 H 93 H 99 H Respiratory 21 21 15 Rate Blood Pressure 126/52 126/52 127/51 O2 Sat by Pulse 100 100 100 Oximetry O2 Sat by Pulse Oximetry [ Anterior Bilateral Throughout] 08/05/16 08/05/16 08/05/16 08:15 08:30 08:45 Temperature Pulse Rate 94 H 92 H 88 Respiratory 11 L 16 18 Rate Blood Pressure 127/51 118/50 109/44 O2 Sat by Pulse 100 100 100 Oximetry O2 Sat by Pulse Oximetry [ Anterior Bilateral Throughout] 08/05/16 08/05/16 08/05/16 09:00 09:14 09:15 Temperature Pulse Rate 92 H 92 H 91 H Respiratory 21 20 Rate Blood Pressure 116/51 116/51 108/48 O2 Sat by Pulse 100 100 100 Oximetry O2 Sat by Pulse Oximetry [ Anterior Bilateral Throughout] 08/05/16 08/05/16 08/05/16 09:30 09:36 09:45 Temperature Pulse Rate 90 92 H 93 H Respiratory 19 17 12 Rate Blood Pressure 111/48 111/48 113/45 O2 Sat by Pulse 100 100 100 Oximetry O2 Sat by Pulse Oximetry [ Anterior Bilateral Throughout] 08/05/16 08/05/16 08/05/16 10:00 10:15 10:30 Temperature Pulse Rate 92 H 95 H 95 H Respiratory 13 15 16 Rate Blood Pressure 115/46 119/47 114/49 O2 Sat by Pulse 100 100 100 Oximetry O2 Sat by Pulse Oximetry [ Anterior Bilateral Throughout] 08/05/16 08/05/16 08/05/16 10:41 10:45 10:50 Temperature Pulse Rate 94 H 94 H 93 H Respiratory 14 18 18 Rate Blood Pressure 114/49 113/51 113/51 O2 Sat by Pulse 100 100 100 Oximetry O2 Sat by Pulse Oximetry [ Anterior Bilateral Throughout] 08/05/16 08/05/16 08/05/16 11:00 11:15 11:30 Temperature Pulse Rate 93 H 91 H 91 H Respiratory 15 16 15 Rate Blood Pressure 105/43 102/43 108/43 O2 Sat by Pulse 100 100 100 Oximetry O2 Sat by Pulse Oximetry [ Anterior Bilateral Throughout] 08/05/16 08/05/16 08/05/16 11:45 12:00 12:15 Temperature 100.2 F H Pulse Rate 85 89 89 Respiratory 13 15 13 Rate Blood Pressure 117/39 110/44 110/43 O2 Sat by Pulse 100 100 100 Oximetry O2 Sat by Pulse Oximetry [ Anterior Bilateral Throughout] 08/05/16 08/05/16 08/05/16 12:30 12:40 12:45 Temperature 100.2 F H Pulse Rate 90 91 H 89 Respiratory 19 14 15 Rate Blood Pressure 106/42 103/44 103/44 O2 Sat by Pulse 100 100 Oximetry O2 Sat by Pulse 100 Oximetry [ Anterior Bilateral Throughout] 08/05/16 08/05/16 08/05/16 13:00 13:01 13:15 Temperature Pulse Rate 91 H 90 94 H Respiratory 14 16 Rate Blood Pressure 113/48 113/48 116/52 O2 Sat by Pulse 100 100 Oximetry O2 Sat by Pulse Oximetry [ Anterior Bilateral Throughout] 08/05/16 08/05/16 08/05/16 13:30 13:45 14:00 Temperature Pulse Rate 97 H 101 H 101 H Respiratory 15 Rate Blood Pressure 117/54 117/58 126/56 O2 Sat by Pulse 100 Oximetry O2 Sat by Pulse Oximetry [ Anterior Bilateral Throughout] 08/05/16 08/05/16 08/05/16 14:15 14:30 14:45 Temperature Pulse Rate 101 H 102 H 100 H Respiratory Rate Blood Pressure 129/54 129/56 122/55 O2 Sat by Pulse Oximetry O2 Sat by Pulse Oximetry [ Anterior Bilateral Throughout] 08/05/16 08/05/16 15:00 15:15 Temperature Pulse Rate 102 H 101 H Respiratory Rate Blood Pressure 122/54 119/56 O2 Sat by Pulse Oximetry O2 Sat by Pulse Oximetry [ Anterior Bilateral Throughout] Constitutional: other (Responsive On Vent, follows commands ) Eyes: non-icteric ENT: other (orally intubated) Neck: supple Effort: mildly labored Ascultation: Bilateral: clear (anteriorly), rales (at the bases) Percussion: Bilateral: not dull Cardiovascular: regular rate and rhythm Gastrointestinal: normoactive bowel sounds, soft, non-tender Neurologic: unable to assess CBC and BMP: 08/05/16 06:00 08/05/16 06:00 ABG, PT/INR, D-dimer: ABG POC ABG pH 7.458 (7.35-7.45) H 08/05/16 11:10 POC ABG pCO2 26.6 (35-45) L 08/05/16 11:10 POC ABG pO2 128 (80-105) H 08/05/16 11:10 POC ABG HCO3 18.9 08/05/16 11:10 POC ABG Total CO2 20 08/05/16 11:10 POC ABG O2 Sat 99 08/05/16 11:10 PT/INR, D-dimer PT 22.8 Sec. (12.2-14.9) H 08/05/16 06:00 INR 2.01 (0.87-1.13) H 08/05/16 06:00 Abnormal lab findings: Abnormal Labs 07/31/16 07/31/16 08/01/16 13:39 13:39 00:32 WBC RBC Hgb 9.2 L Hct 28.8 L MCV RDW Lymph % (Auto) [place] # Seg Neutrophils % Seg Neuts % (Manual) Lymphocytes % (Manual) Nucleated RBC % Seg Neutrophils # Seg Neutrophils # Man Lymphocytes # (Manual) PT 17.0 H INR 1.39 H APTT Heparin Anti-Xa Level POC ABG pH POC ABG pCO2 POC ABG pO2 Sodium Chloride Carbon Dioxide BUN Creatinine Glucose POC Glucose 297 H Calcium Phosphorus Total Bilirubin AST Alkaline Phosphatase Total Creatine Kinase CK-MB (CK-2) CK-MB (CK-2) Rel Index Troponin T Total Protein Albumin Cholesterol LDL Cholesterol Direct HDL Cholesterol TSH 08/01/16 08/01/16 08/01/16 05:00 07:35 11:04 WBC RBC Hgb Hct MCV RDW Lymph % (Auto) [place] # Seg Neutrophils % Seg Neuts % (Manual) Lymphocytes % (Manual) Nucleated RBC % Seg Neutrophils # Seg Neutrophils # Man Lymphocytes # (Manual) PT INR APTT Heparin Anti-Xa Level 0.11 L POC ABG pH POC ABG pCO2 POC ABG pO2 Sodium Chloride Carbon Dioxide BUN Creatinine Glucose POC Glucose 218 H 255 H Calcium Phosphorus Total Bilirubin AST Alkaline Phosphatase Total Creatine Kinase CK-MB (CK-2) CK-MB (CK-2) Rel Index Troponin T Total Protein Albumin Cholesterol LDL Cholesterol Direct HDL Cholesterol TSH 08/01/16 08/01/16 08/01/16 13:47 16:24 16:37 WBC RBC Hgb Hct MCV RDW Lymph % (Auto) [place] # Seg Neutrophils % Seg Neuts % (Manual) Lymphocytes % (Manual) Nucleated RBC % Seg Neutrophils # Seg Neutrophils # Man Lymphocytes # (Manual) PT INR APTT Heparin Anti-Xa Level < 0.10 L < 0.10 L POC ABG pH POC ABG pCO2 POC ABG pO2 Sodium Chloride Carbon Dioxide BUN Creatinine Glucose POC Glucose 282 H Calcium Phosphorus Total Bilirubin AST Alkaline Phosphatase Total Creatine Kinase CK-MB (CK-2) CK-MB (CK-2) Rel Index Troponin T Total Protein Albumin Cholesterol LDL Cholesterol Direct HDL Cholesterol TSH 08/01/16 08/02/16 08/02/16 20:51 04:36 04:36 WBC 15.9 H RBC 2.87 L Hgb 8.7 L Hct 27.6 L MCV RDW 17.1 H Lymph % (Auto) 7.8 L [place] # 1.0 H Seg Neutrophils % 84.7 H Seg Neuts % (Manual) Lymphocytes % (Manual) Nucleated RBC % Seg Neutrophils # 13.5 H Seg Neutrophils # Man Lymphocytes # (Manual) PT INR APTT Heparin Anti-Xa Level POC ABG pH POC ABG pCO2 POC ABG pO2 Sodium 130 L Chloride 85.9 L Carbon Dioxide 16 L BUN 60 H Creatinine 6.2 H Glucose 155 H POC Glucose 312 H Calcium Phosphorus 9.0 H Total Bilirubin 2.7 H AST Alkaline Phosphatase 483 H Total Creatine Kinase CK-MB (CK-2) CK-MB (CK-2) Rel Index Troponin T Total Protein Albumin 2.3 L Cholesterol LDL Cholesterol Direct HDL Cholesterol TSH 08/02/16 08/02/16 08/02/16 04:36 04:36 07:56 WBC RBC Hgb Hct MCV RDW Lymph % (Auto) [place] # Seg Neutrophils % Seg Neuts % (Manual) Lymphocytes % (Manual) Nucleated RBC % Seg Neutrophils # Seg Neutrophils # Man Lymphocytes # (Manual) PT INR APTT Heparin Anti-Xa Level 0.13 L POC ABG pH POC ABG pCO2 POC ABG pO2 Sodium Chloride Carbon Dioxide BUN Creatinine Glucose POC Glucose 119 H Calcium Phosphorus Total Bilirubin AST Alkaline Phosphatase Total Creatine Kinase CK-MB (CK-2) CK-MB (CK-2) Rel Index Troponin T Total Protein Albumin Cholesterol LDL Cholesterol Direct HDL Cholesterol TSH 6.790 H 08/02/16 08/03/16 08/03/16 11:08 01:49 06:08 WBC RBC Hgb Hct MCV RDW Lymph % (Auto) [place] # Seg Neutrophils % Seg Neuts % (Manual) Lymphocytes % (Manual) Nucleated RBC % Seg Neutrophils # Seg Neutrophils # Man Lymphocytes # (Manual) PT 20.7 H INR 1.78 H APTT 48.0 H Heparin Anti-Xa Level POC ABG pH POC ABG pCO2 POC ABG pO2 Sodium Chloride Carbon Dioxide BUN Creatinine Glucose POC Glucose 107 H < 40 L Calcium Phosphorus Total Bilirubin AST Alkaline Phosphatase Total Creatine Kinase CK-MB (CK-2) CK-MB (CK-2) Rel Index Troponin T Total Protein Albumin Cholesterol LDL Cholesterol Direct HDL Cholesterol TSH 08/03/16 08/03/16 08/03/16 06:11 06:33 12:20 WBC RBC Hgb Hct MCV RDW Lymph % (Auto) [place] # Seg Neutrophils % Seg Neuts % (Manual) Lymphocytes % (Manual) Nucleated RBC % Seg Neutrophils # Seg Neutrophils # Man Lymphocytes # (Manual) PT INR APTT Heparin Anti-Xa Level POC ABG pH POC ABG pCO2 POC ABG pO2 Sodium Chloride Carbon Dioxide BUN Creatinine Glucose POC Glucose < 40 L 135 H 52 L Calcium Phosphorus Total Bilirubin AST Alkaline Phosphatase Total Creatine Kinase CK-MB (CK-2) CK-MB (CK-2) Rel Index Troponin T Total Protein Albumin Cholesterol LDL Cholesterol Direct HDL Cholesterol TSH 08/03/16 08/03/16 08/03/16 13:48 20:06 23:13 WBC RBC Hgb Hct MCV RDW Lymph % (Auto) [place] # Seg Neutrophils % Seg Neuts % (Manual) Lymphocytes % (Manual) Nucleated RBC % Seg Neutrophils # Seg Neutrophils # Man Lymphocytes # (Manual) PT INR APTT Heparin Anti-Xa Level POC ABG pH POC ABG pCO2 POC ABG pO2 Sodium Chloride Carbon Dioxide BUN Creatinine Glucose POC Glucose 114 H 145 H 251 H Calcium Phosphorus Total Bilirubin AST Alkaline Phosphatase Total Creatine Kinase CK-MB (CK-2) CK-MB (CK-2) Rel Index Troponin T Total Protein Albumin Cholesterol LDL Cholesterol Direct HDL Cholesterol TSH 01/20/17 01/20/17 01/20/17 01:40 01:40 01:40 WBC 21.1 H RBC 2.88 L Hgb 8.8 L Hct 28.2 L MCV 98 H RDW 16.9 H Lymph % (Auto) [place] # Seg Neutrophils % Seg Neuts % (Manual) Lymphocytes % (Manual) 5.0 L Nucleated RBC % 9.0 H Seg Neutrophils # Seg Neutrophils # Man 12.2 H Lymphocytes # (Manual) 1.1 L PT INR APTT Heparin Anti-Xa Level POC ABG pH POC ABG pCO2 POC ABG pO2 Sodium 134 L Chloride 89.5 L Carbon Dioxide 19 L BUN 51 H Creatinine 5.4 H Glucose 186 H POC Glucose Calcium Phosphorus Total Bilirubin 2.2 H AST 88 H Alkaline Phosphatase 619 H Total Creatine Kinase 321 H CK-MB (CK-2) 24.9 H CK-MB (CK-2) Rel Index 7.7 H Troponin T 1.940 H* Total Protein Albumin 2.4 L Cholesterol 203 H LDL Cholesterol Direct 172 H HDL Cholesterol 15 L TSH 08/04/16 08/04/16 08/04/16 02:12 03:05 06:19 WBC RBC Hgb Hct MCV RDW Lymph % (Auto) [place] # Seg Neutrophils % Seg Neuts % (Manual) Lymphocytes % (Manual) Nucleated RBC % Seg Neutrophils # Seg Neutrophils # Man Lymphocytes # (Manual) PT INR APTT Heparin Anti-Xa Level POC ABG pH POC ABG pCO2 33.6 L POC ABG pO2 398 H 255 H Sodium Chloride Carbon Dioxide BUN Creatinine Glucose POC Glucose 202 H Calcium Phosphorus Total Bilirubin AST Alkaline Phosphatase Total Creatine Kinase CK-MB (CK-2) CK-MB (CK-2) Rel Index Troponin T Total Protein Albumin Cholesterol LDL Cholesterol Direct HDL Cholesterol TSH 08/04/16 08/04/16 08/04/16 06:23 18:10 18:42 WBC RBC Hgb Hct MCV RDW Lymph % (Auto) [place] # Seg Neutrophils % Seg Neuts % (Manual) Lymphocytes % (Manual) Nucleated RBC % Seg Neutrophils # Seg Neutrophils # Man Lymphocytes # (Manual) PT INR APTT Heparin Anti-Xa Level POC ABG pH POC ABG pCO2 POC ABG pO2 Sodium Chloride 97.9 L Carbon Dioxide 20 L BUN 62 H Creatinine 5.8 H Glucose 39 L* POC Glucose 192 H < 40 L Calcium 8.1 L Phosphorus Total Bilirubin AST Alkaline Phosphatase Total Creatine Kinase CK-MB (CK-2) CK-MB (CK-2) Rel Index Troponin T Total Protein Albumin Cholesterol LDL Cholesterol Direct HDL Cholesterol TSH 08/04/16 08/04/16 08/04/16 18:43 19:33 21:20 WBC RBC Hgb Hct MCV RDW Lymph % (Auto) [place] # Seg Neutrophils % Seg Neuts % (Manual) Lymphocytes % (Manual) Nucleated RBC % Seg Neutrophils # Seg Neutrophils # Man Lymphocytes # (Manual) PT INR APTT Heparin Anti-Xa Level 1.19 H POC ABG pH POC ABG pCO2 POC ABG pO2 Sodium 132 L D Chloride 91.5 L Carbon Dioxide 19 L BUN 62 H Creatinine 5.7 H Glucose 103 H POC Glucose 152 H Calcium 8.2 L Phosphorus Total Bilirubin AST Alkaline Phosphatase Total Creatine Kinase CK-MB (CK-2) CK-MB (CK-2) Rel Index Troponin T Total Protein Albumin Cholesterol LDL Cholesterol Direct HDL Cholesterol TSH 08/04/16 08/04/16 08/04/16 Unknown Unknown Unknown WBC 20.9 H RBC 2.75 L Hgb 8.7 L Hct 26.6 L MCV RDW 16.8 H Lymph % (Auto) [place] # Seg Neutrophils % Seg Neuts % (Manual) 89.0 H Lymphocytes % (Manual) 4.0 L Nucleated RBC % Seg Neutrophils # Seg Neutrophils # Man 18.6 H Lymphocytes # (Manual) 0.8 L PT INR APTT Heparin Anti-Xa Level POC ABG pH POC ABG pCO2 POC ABG pO2 Sodium Chloride Carbon Dioxide BUN Creatinine Glucose POC Glucose Calcium Phosphorus Total Bilirubin AST Alkaline Phosphatase Total Creatine Kinase 326 H 381 H CK-MB (CK-2) 27.3 H 24.0 H CK-MB (CK-2) Rel Index 8.3 H 6.2 H Troponin T 1.910 H* 2.000 H* Total Protein Albumin Cholesterol LDL Cholesterol Direct HDL Cholesterol TSH 08/04/16 08/05/16 08/05/16 Unknown 01:19 06:00 WBC RBC Hgb Hct MCV RDW Lymph % (Auto) [place] # Seg Neutrophils % Seg Neuts % (Manual) Lymphocytes % (Manual) Nucleated RBC % Seg Neutrophils # Seg Neutrophils # Man Lymphocytes # (Manual) PT 21.3 H INR 1.85 H APTT 49.1 H Heparin Anti-Xa Level POC ABG pH POC ABG pCO2 POC ABG pO2 Sodium 135 L Chloride 93.9 L Carbon Dioxide 18 L BUN 68 H Creatinine 6.2 H Glucose 220 H POC Glucose 65 L Calcium 7.9 L Phosphorus Total Bilirubin 1.4 H AST 61 H Alkaline Phosphatase 446 H Total Creatine Kinase CK-MB (CK-2) CK-MB (CK-2) Rel Index Troponin T Total Protein 6.1 L Albumin 1.7 L Cholesterol LDL Cholesterol Direct HDL Cholesterol TSH 08/05/16 08/05/16 08/05/16 06:00 06:00 06:00 WBC 16.5 H RBC 2.79 L Hgb 8.5 L Hct 26.5 L MCV RDW 16.8 H Lymph % (Auto) [place] # Seg Neutrophils % Seg Neuts % (Manual) 90.0 H Lymphocytes % (Manual) 7.0 L Nucleated RBC % 2.0 H Seg Neutrophils # Seg Neutrophils # Man 14.9 H Lymphocytes # (Manual) PT 22.8 H INR 2.01 H APTT Heparin Anti-Xa Level 0.80 H POC ABG pH POC ABG pCO2 POC ABG pO2 Sodium Chloride Carbon Dioxide BUN Creatinine Glucose POC Glucose Calcium Phosphorus Total Bilirubin AST Alkaline Phosphatase Total Creatine Kinase CK-MB (CK-2) CK-MB (CK-2) Rel Index Troponin T Total Protein Albumin Cholesterol LDL Cholesterol Direct HDL Cholesterol TSH 08/05/16 08/05/16 08/05/16 06:57 11:10 12:00 WBC RBC Hgb Hct MCV RDW Lymph % (Auto) [place] # Seg Neutrophils % Seg Neuts % (Manual) Lymphocytes % (Manual) Nucleated RBC % Seg Neutrophils # Seg Neutrophils # Man Lymphocytes # (Manual) PT INR APTT Heparin Anti-Xa Level 0.75 H POC ABG pH 7.458 H POC ABG pCO2 26.6 L POC ABG pO2 128 H Sodium Chloride Carbon Dioxide BUN Creatinine Glucose POC Glucose 118 H Calcium Phosphorus Total Bilirubin AST Alkaline Phosphatase Total Creatine Kinase CK-MB (CK-2) CK-MB (CK-2) Rel Index Troponin T Total Protein Albumin Cholesterol LDL Cholesterol Direct HDL Cholesterol TSH
[2016-08-05] MEDS ORDERED: D5/0.45NS 1,000 ML IV SCH (22:00)
[2016-08-06] MEDS ORDERED: LANOXIN IV ONE ×2 (01:31→01:33)
[2016-08-06] MEDS ORDERED: CARDIZEM/D5W 100MG/100ML 100 ML IV SCH (05:00)
[2016-08-06] MEDS: ZOSYN/NS 2.25 GM/50ML 50 ML IV SCH ×2 (05:17→13:59)
[2016-08-06] MEDS: SYNTHROID PO SCH (05:17)
[2016-08-06 05:22] LABS: BUN/Creatinine Ratio 9.75; Calcium 8.5 mg/dL (8.4-10.2); Chloride 94.5 mmol/L (98-107); Potassium 4.8 mmol/L (3.6-5.0)
[2016-08-06 06:26] LABS: Hematocrit 25.7 % (30.3-42.9)
--- NOTE | 2016-08-06 09:09 | Progress Note ---
Assessment and Plan 51 y/o female, admitted to the ICU with cardiac arrest, now with encephalopathy , hypotension and ESRD on HD. 1. Will place on PSV today, check ABG 2. Use levophed for bp. Goal is a map of 65, wean if greater 3. HD per renal 4. Follow up cardiology recs, currently on Dilt 5. Prognosis improving, given improved mental status. Remains guarded CCT 31 minutes. Subjective Date of service: 08/06/16 Principal diagnosis: cardiopulmonary arrest Interval history: Appears to have had SVT last night times two. Given Dig and started on dilt drip. Not sure why cardiology wasn't notified as they had been following the patient. Remains awake, follows commands. Still on the Vent, has not been placed on pressure support yet. Objective Vital Signs - 12hr 08/05/16 08/05/16 08/05/16 21:15 21:30 21:45 Temperature Pulse Rate 84 92 H Respiratory 21 9 L Rate Blood Pressure 110/43 110/43 106/44 O2 Sat by Pulse 100 100 100 Oximetry 08/05/16 08/05/16 08/05/16 22:00 22:15 22:30 Temperature Pulse Rate 94 H 87 87 Respiratory 20 13 11 L Rate Blood Pressure 114/52 97/48 100/47 O2 Sat by Pulse 100 100 Oximetry 08/05/16 08/05/16 08/05/16 22:36 22:45 23:00 Temperature Pulse Rate 89 90 86 Respiratory 10 L 14 20 Rate Blood Pressure 100/47 102/49 98/44 O2 Sat by Pulse 100 100 Oximetry 08/05/16 08/05/16 08/05/16 23:15 23:30 23:40 Temperature Pulse Rate 86 88 88 Respiratory 21 21 Rate Blood Pressure 99/45 101/47 101/47 O2 Sat by Pulse 100 100 Oximetry 08/05/16 08/06/16 08/06/16 23:45 00:00 00:15 Temperature 99.9 F H Pulse Rate 87 88 87 Respiratory 20 20 21 Rate Blood Pressure 101/45 102/45 97/45 O2 Sat by Pulse 100 100 100 Oximetry 08/06/16 08/06/16 08/06/16 00:30 00:45 01:00 Temperature Pulse Rate 84 84 79 Respiratory 23 21 20 Rate Blood Pressure 95/43 96/44 81/38 O2 Sat by Pulse 100 99 100 Oximetry 08/06/16 08/06/16 08/06/16 01:10 01:15 01:30 Temperature Pulse Rate 86 83 82 Respiratory 17 20 20 Rate Blood Pressure 94/43 97/44 97/45 O2 Sat by Pulse 100 100 98 Oximetry 08/06/16 08/06/16 08/06/16 01:46 02:00 02:15 Temperature Pulse Rate 142 H 88 91 H Respiratory 20 20 20 Rate Blood Pressure 99/52 114/52 117/50 O2 Sat by Pulse 100 100 100 Oximetry 08/06/16 08/06/16 08/06/16 02:30 04:00 04:05 Temperature 99.1 F Pulse Rate 91 H 94 H Respiratory 20 Rate Blood Pressure 116/51 120/49 O2 Sat by Pulse 100 100 Oximetry 08/06/16 08/06/16 08/06/16 04:15 05:07 08:00 Temperature 100.4 F H Pulse Rate 170 H 167 H Respiratory Rate Blood Pressure 127/61 102/54 O2 Sat by Pulse 100 Oximetry Constitutional: other (Responsive On Vent, follows commands ) Eyes: non-icteric ENT: other (orally intubated) Neck: supple Effort: mildly labored Ascultation: Bilateral: clear (anteriorly), rales (at the bases) Percussion: Bilateral: not dull Cardiovascular: regular rate and rhythm Gastrointestinal: normoactive bowel sounds, soft, non-tender Neurologic: unable to assess CBC and BMP: 08/06/16 04:45 08/06/16 04:45 ABG, PT/INR, D-dimer: ABG POC ABG pH 7.458 (7.35-7.45) H 08/05/16 11:10 POC ABG pCO2 26.6 (35-45) L 08/05/16 11:10 POC ABG pO2 128 (80-105) H 08/05/16 11:10 POC ABG HCO3 18.9 08/05/16 11:10 POC ABG Total CO2 20 08/05/16 11:10 POC ABG O2 Sat 99 08/05/16 11:10 PT/INR, D-dimer PT 22.8 Sec. (12.2-14.9) H 08/05/16 06:00 INR 2.01 (0.87-1.13) H 08/05/16 06:00 Abnormal lab findings: Abnormal Labs 07/31/16 07/31/16 08/01/16 13:39 13:39 00:32 WBC RBC Hgb 9.2 L Hct 28.8 L MCV RDW Lymph % (Auto) [place] # Seg Neutrophils % Seg Neuts % (Manual) Lymphocytes % (Manual) Nucleated RBC % Seg Neutrophils # Seg Neutrophils # Man Lymphocytes # (Manual) PT 17.0 H INR 1.39 H APTT Heparin Anti-Xa Level POC ABG pH POC ABG pCO2 POC ABG pO2 Sodium Chloride Carbon Dioxide BUN Creatinine Glucose POC Glucose 297 H Calcium Phosphorus Total Bilirubin AST Alkaline Phosphatase Total Creatine Kinase CK-MB (CK-2) CK-MB (CK-2) Rel Index Troponin T Total Protein Albumin Cholesterol LDL Cholesterol Direct HDL Cholesterol TSH 08/01/16 08/01/16 08/01/16 05:00 07:35 11:04 WBC RBC Hgb Hct MCV RDW Lymph % (Auto) [place] # Seg Neutrophils % Seg Neuts % (Manual) Lymphocytes % (Manual) Nucleated RBC % Seg Neutrophils # Seg Neutrophils # Man Lymphocytes # (Manual) PT INR APTT Heparin Anti-Xa Level 0.11 L POC ABG pH POC ABG pCO2 POC ABG pO2 Sodium Chloride Carbon Dioxide BUN Creatinine Glucose POC Glucose 218 H 255 H Calcium Phosphorus Total Bilirubin AST Alkaline Phosphatase Total Creatine Kinase CK-MB (CK-2) CK-MB (CK-2) Rel Index Troponin T Total Protein Albumin Cholesterol LDL Cholesterol Direct HDL Cholesterol TSH 08/01/16 08/01/16 08/01/16 13:47 16:24 16:37 WBC RBC Hgb Hct MCV RDW Lymph % (Auto) [place] # Seg Neutrophils % Seg Neuts % (Manual) Lymphocytes % (Manual) Nucleated RBC % Seg Neutrophils # Seg Neutrophils # Man Lymphocytes # (Manual) PT INR APTT Heparin Anti-Xa Level < 0.10 L < 0.10 L POC ABG pH POC ABG pCO2 POC ABG pO2 Sodium Chloride Carbon Dioxide BUN Creatinine Glucose POC Glucose 282 H Calcium Phosphorus Total Bilirubin AST Alkaline Phosphatase Total Creatine Kinase CK-MB (CK-2) CK-MB (CK-2) Rel Index Troponin T Total Protein Albumin Cholesterol LDL Cholesterol Direct HDL Cholesterol TSH 08/01/16 08/02/16 08/02/16 20:51 04:36 04:36 WBC 15.9 H RBC 2.87 L Hgb 8.7 L Hct 27.6 L MCV RDW 17.1 H Lymph % (Auto) 7.8 L [place] # 1.0 H Seg Neutrophils % 84.7 H Seg Neuts % (Manual) Lymphocytes % (Manual) Nucleated RBC % Seg Neutrophils # 13.5 H Seg Neutrophils # Man Lymphocytes # (Manual) PT INR APTT Heparin Anti-Xa Level POC ABG pH POC ABG pCO2 POC ABG pO2 Sodium 130 L Chloride 85.9 L Carbon Dioxide 16 L BUN 60 H Creatinine 6.2 H Glucose 155 H POC Glucose 312 H Calcium Phosphorus 9.0 H Total Bilirubin 2.7 H AST Alkaline Phosphatase 483 H Total Creatine Kinase CK-MB (CK-2) CK-MB (CK-2) Rel Index Troponin T Total Protein Albumin 2.3 L Cholesterol LDL Cholesterol Direct HDL Cholesterol TSH 08/02/16 08/02/16 08/02/16 04:36 04:36 07:56 WBC RBC Hgb Hct MCV RDW Lymph % (Auto) [place] # Seg Neutrophils % Seg Neuts % (Manual) Lymphocytes % (Manual) Nucleated RBC % Seg Neutrophils # Seg Neutrophils # Man Lymphocytes # (Manual) PT INR APTT Heparin Anti-Xa Level 0.13 L POC ABG pH POC ABG pCO2 POC ABG pO2 Sodium Chloride Carbon Dioxide BUN Creatinine Glucose POC Glucose 119 H Calcium Phosphorus Total Bilirubin AST Alkaline Phosphatase Total Creatine Kinase CK-MB (CK-2) CK-MB (CK-2) Rel Index Troponin T Total Protein Albumin Cholesterol LDL Cholesterol Direct HDL Cholesterol TSH 6.790 H 08/02/16 08/03/16 08/03/16 11:08 01:49 06:08 WBC RBC Hgb Hct MCV RDW Lymph % (Auto) [place] # Seg Neutrophils % Seg Neuts % (Manual) Lymphocytes % (Manual) Nucleated RBC % Seg Neutrophils # Seg Neutrophils # Man Lymphocytes # (Manual) PT 20.7 H INR 1.78 H APTT 48.0 H Heparin Anti-Xa Level POC ABG pH POC ABG pCO2 POC ABG pO2 Sodium Chloride Carbon Dioxide BUN Creatinine Glucose POC Glucose 107 H < 40 L Calcium Phosphorus Total Bilirubin AST Alkaline Phosphatase Total Creatine Kinase CK-MB (CK-2) CK-MB (CK-2) Rel Index Troponin T Total Protein Albumin Cholesterol LDL Cholesterol Direct HDL Cholesterol TSH 08/03/16 08/03/16 08/03/16 06:11 06:33 12:20 WBC RBC Hgb Hct MCV RDW Lymph % (Auto) [place] # Seg Neutrophils % Seg Neuts % (Manual) Lymphocytes % (Manual) Nucleated RBC % Seg Neutrophils # Seg Neutrophils # Man Lymphocytes # (Manual) PT INR APTT Heparin Anti-Xa Level POC ABG pH POC ABG pCO2 POC ABG pO2 Sodium Chloride Carbon Dioxide BUN Creatinine Glucose POC Glucose < 40 L 135 H 52 L Calcium Phosphorus Total Bilirubin AST Alkaline Phosphatase Total Creatine Kinase CK-MB (CK-2) CK-MB (CK-2) Rel Index Troponin T Total Protein Albumin Cholesterol LDL Cholesterol Direct HDL Cholesterol TSH 08/03/16 08/03/16 08/03/16 13:48 20:06 23:13 WBC RBC Hgb Hct MCV RDW Lymph % (Auto) [place] # Seg Neutrophils % Seg Neuts % (Manual) Lymphocytes % (Manual) Nucleated RBC % Seg Neutrophils # Seg Neutrophils # Man Lymphocytes # (Manual) PT INR APTT Heparin Anti-Xa Level POC ABG pH POC ABG pCO2 POC ABG pO2 Sodium Chloride Carbon Dioxide BUN Creatinine Glucose POC Glucose 114 H 145 H 251 H Calcium Phosphorus Total Bilirubin AST Alkaline Phosphatase Total Creatine Kinase CK-MB (CK-2) CK-MB (CK-2) Rel Index Troponin T Total Protein Albumin Cholesterol LDL Cholesterol Direct HDL Cholesterol TSH 08/04/16 08/04/16 08/04/16 01:40 01:40 01:40 WBC 21.1 H RBC 2.88 L Hgb 8.8 L Hct 28.2 L MCV 98 H RDW 16.9 H Lymph % (Auto) [place] # Seg Neutrophils % Seg Neuts % (Manual) Lymphocytes % (Manual) 5.0 L Nucleated RBC % 9.0 H Seg Neutrophils # Seg Neutrophils # Man 12.2 H Lymphocytes # (Manual) 1.1 L PT INR APTT Heparin Anti-Xa Level POC ABG pH POC ABG pCO2 POC ABG pO2 Sodium 134 L Chloride 89.5 L Carbon Dioxide 19 L BUN 51 H Creatinine 5.4 H Glucose 186 H POC Glucose Calcium Phosphorus Total Bilirubin 2.2 H AST 88 H Alkaline Phosphatase 619 H Total Creatine Kinase 321 H CK-MB (CK-2) 24.9 H CK-MB (CK-2) Rel Index 7.7 H Troponin T 1.940 H* Total Protein Albumin 2.4 L Cholesterol 203 H LDL Cholesterol Direct 172 H HDL Cholesterol 15 L TSH 08/04/16 08/04/16 08/04/16 02:12 03:05 06:19 WBC RBC Hgb Hct MCV RDW Lymph % (Auto) [place] # Seg Neutrophils % Seg Neuts % (Manual) Lymphocytes % (Manual) Nucleated RBC % Seg Neutrophils # Seg Neutrophils # Man Lymphocytes # (Manual) PT INR APTT Heparin Anti-Xa Level POC ABG pH POC ABG pCO2 33.6 L POC ABG pO2 398 H 255 H Sodium Chloride Carbon Dioxide BUN Creatinine Glucose POC Glucose 202 H Calcium Phosphorus Total Bilirubin AST Alkaline Phosphatase Total Creatine Kinase CK-MB (CK-2) CK-MB (CK-2) Rel Index Troponin T Total Protein Albumin Cholesterol LDL Cholesterol Direct HDL Cholesterol TSH 08/04/16 08/04/16 08/04/16 06:23 18:10 18:42 WBC RBC Hgb Hct MCV RDW Lymph % (Auto) [place] # Seg Neutrophils % Seg Neuts % (Manual) Lymphocytes % (Manual) Nucleated RBC % Seg Neutrophils # Seg Neutrophils # Man Lymphocytes # (Manual) PT INR APTT Heparin Anti-Xa Level POC ABG pH POC ABG pCO2 POC ABG pO2 Sodium Chloride 97.9 L Carbon Dioxide 20 L BUN 62 H Creatinine 5.8 H Glucose 39 L* POC Glucose 192 H < 40 L Calcium 8.1 L Phosphorus Total Bilirubin AST Alkaline Phosphatase Total Creatine Kinase CK-MB (CK-2) CK-MB (CK-2) Rel Index Troponin T Total Protein Albumin Cholesterol LDL Cholesterol Direct HDL Cholesterol TSH 08/04/16 08/04/16 08/04/16 18:43 19:33 21:20 WBC RBC Hgb Hct MCV RDW Lymph % (Auto) [place] # Seg Neutrophils % Seg Neuts % (Manual) Lymphocytes % (Manual) Nucleated RBC % Seg Neutrophils # Seg Neutrophils # Man Lymphocytes # (Manual) PT INR APTT Heparin Anti-Xa Level 1.19 H POC ABG pH POC ABG pCO2 POC ABG pO2 Sodium 132 L D Chloride 91.5 L Carbon Dioxide 19 L BUN 62 H Creatinine 5.7 H Glucose 103 H POC Glucose 152 H Calcium 8.2 L Phosphorus Total Bilirubin AST Alkaline Phosphatase Total Creatine Kinase CK-MB (CK-2) CK-MB (CK-2) Rel Index Troponin T Total Protein Albumin Cholesterol LDL Cholesterol Direct HDL Cholesterol TSH 08/04/16 08/04/16 08/04/16 Unknown Unknown Unknown WBC 20.9 H RBC 2.75 L Hgb 8.7 L Hct 26.6 L MCV RDW 16.8 H Lymph % (Auto) [place] # Seg Neutrophils % Seg Neuts % (Manual) 89.0 H Lymphocytes % (Manual) 4.0 L Nucleated RBC % Seg Neutrophils # Seg Neutrophils # Man 18.6 H Lymphocytes # (Manual) 0.8 L PT INR APTT Heparin Anti-Xa Level POC ABG pH POC ABG pCO2 POC ABG pO2 Sodium Chloride Carbon Dioxide BUN Creatinine Glucose POC Glucose Calcium Phosphorus Total Bilirubin AST Alkaline Phosphatase Total Creatine Kinase 326 H 381 H CK-MB (CK-2) 27.3 H 24.0 H CK-MB (CK-2) Rel Index 8.3 H 6.2 H Troponin T 1.910 H* 2.000 H* Total Protein Albumin Cholesterol LDL Cholesterol Direct HDL Cholesterol TSH 08/04/16 08/05/16 08/05/16 Unknown 01:19 06:00 WBC RBC Hgb Hct MCV RDW Lymph % (Auto) [place] # Seg Neutrophils % Seg Neuts % (Manual) Lymphocytes % (Manual) Nucleated RBC % Seg Neutrophils # Seg Neutrophils # Man Lymphocytes # (Manual) PT 21.3 H INR 1.85 H APTT 49.1 H Heparin Anti-Xa Level POC ABG pH POC ABG pCO2 POC ABG pO2 Sodium 135 L Chloride 93.9 L Carbon Dioxide 18 L BUN 68 H Creatinine 6.2 H Glucose 220 H POC Glucose 65 L Calcium 7.9 L Phosphorus Total Bilirubin 1.4 H AST 61 H Alkaline Phosphatase 446 H Total Creatine Kinase CK-MB (CK-2) CK-MB (CK-2) Rel Index Troponin T Total Protein 6.1 L Albumin 1.7 L Cholesterol LDL Cholesterol Direct HDL Cholesterol TSH 08/05/16 08/05/16 08/05/16 06:00 06:00 06:00 WBC 16.5 H RBC 2.79 L Hgb 8.5 L Hct 26.5 L MCV RDW 16.8 H Lymph % (Auto) [place] # Seg Neutrophils % Seg Neuts % (Manual) 90.0 H Lymphocytes % (Manual) 7.0 L Nucleated RBC % 2.0 H Seg Neutrophils # Seg Neutrophils # Man 14.9 H Lymphocytes # (Manual) PT 22.8 H INR 2.01 H APTT Heparin Anti-Xa Level 0.80 H POC ABG pH POC ABG pCO2 POC ABG pO2 Sodium Chloride Carbon Dioxide BUN Creatinine Glucose POC Glucose Calcium Phosphorus Total Bilirubin AST Alkaline Phosphatase Total Creatine Kinase CK-MB (CK-2) CK-MB (CK-2) Rel Index Troponin T Total Protein Albumin Cholesterol LDL Cholesterol Direct HDL Cholesterol TSH 08/05/16 08/05/16 08/05/16 06:57 11:10 11:39 WBC RBC Hgb Hct MCV RDW Lymph % (Auto) [place] # Seg Neutrophils % Seg Neuts % (Manual) Lymphocytes % (Manual) Nucleated RBC % Seg Neutrophils # Seg Neutrophils # Man Lymphocytes # (Manual) PT INR APTT Heparin Anti-Xa Level POC ABG pH 7.458 H POC ABG pCO2 26.6 L POC ABG pO2 128 H Sodium Chloride Carbon Dioxide BUN Creatinine Glucose POC Glucose 118 H 50 L Calcium Phosphorus Total Bilirubin AST Alkaline Phosphatase Total Creatine Kinase CK-MB (CK-2) CK-MB (CK-2) Rel Index Troponin T Total Protein Albumin Cholesterol LDL Cholesterol Direct HDL Cholesterol TSH 08/05/16 08/05/16 08/05/16 12:00 12:28 20:15 WBC RBC Hgb Hct MCV RDW Lymph % (Auto) [place] # Seg Neutrophils % Seg Neuts % (Manual) Lymphocytes % (Manual) Nucleated RBC % Seg Neutrophils # Seg Neutrophils # Man Lymphocytes # (Manual) PT INR APTT Heparin Anti-Xa Level 0.75 H POC ABG pH POC ABG pCO2 POC ABG pO2 Sodium Chloride Carbon Dioxide BUN Creatinine Glucose POC Glucose 110 H 68 L Calcium Phosphorus Total Bilirubin AST Alkaline Phosphatase Total Creatine Kinase CK-MB (CK-2) CK-MB (CK-2) Rel Index Troponin T Total Protein Albumin Cholesterol LDL Cholesterol Direct HDL Cholesterol TSH 08/05/16 08/06/16 08/06/16 21:15 04:45 04:45 WBC RBC Hgb 8.0 L Hct 25.7 L MCV RDW Lymph % (Auto) [place] # Seg Neutrophils % Seg Neuts % (Manual) Lymphocytes % (Manual) Nucleated RBC % Seg Neutrophils # Seg Neutrophils # Man Lymphocytes # (Manual) PT INR APTT Heparin Anti-Xa Level POC ABG pH POC ABG pCO2 POC ABG pO2 Sodium Chloride 94.5 L Carbon Dioxide 21 L BUN 40 H Creatinine 4.1 H Glucose POC Glucose 109 H Calcium Phosphorus Total Bilirubin AST Alkaline Phosphatase Total Creatine Kinase CK-MB (CK-2) CK-MB (CK-2) Rel Index Troponin T Total Protein Albumin Cholesterol LDL Cholesterol Direct HDL Cholesterol TSH
[2016-08-06] MEDS: LEVAQUIN PO SCH (09:45)
[2016-08-06] MEDS ORDERED: LANOXIN IV SCH ×2 (10:00→17:15)
[2016-08-06] MEDS: LEVOPHED DRIP 4 MG/NS 250 ML 250 ML IV SCH ×2 (10:01→14:01)
[2016-08-06] MEDS: ASPIRIN PO SCH (10:04)
--- NOTE | 2016-08-06 10:43 | Progress Note ---
Assessment and Plan - Patient Problems (1) End stage renal disease on dialysis Current Visit: No Status: Chronic Plan to address problem: Patient was last dialyzed yesterday. Monitor [employer] needs. (2) Hypotension Current Visit: Yes Status: Acute Plan to address problem: On Levophed. (3) Ventricular fibrillation Current Visit: Yes Status: Acute Plan to address problem: S/p cardiac arrest. (4) Hyperkalemia Current Visit: Yes Status: Acute Plan to address problem: Improved. (5) Respiratory failure Current Visit: Yes Status: Acute Plan to address problem: On vent. (6) Atrial fibrillation with rapid ventricular response Current Visit: Yes Status: Acute (7) Anemia, chronic renal failure Current Visit: Yes Status: Chronic Plan to address problem: Epogen. Subjective Date of service: 08/06/16 Principal diagnosis: cardiopulmonary arrest Interval history: Patient remain on the vent. Objective - Vital Signs Vital signs: Vital Signs - 12hr 08/05/16 08/05/16 08/05/16 22:45 23:00 23:15 Temperature Pulse Rate 90 86 86 Respiratory 14 20 21 Rate Blood Pressure 102/49 98/44 99/45 O2 Sat by Pulse 100 Oximetry 08/05/16 08/05/16 08/05/16 23:30 23:40 23:45 Temperature Pulse Rate 88 88 87 Respiratory 21 20 Rate Blood Pressure 101/47 101/47 101/45 O2 Sat by Pulse 100 100 100 Oximetry 08/06/16 08/06/16 08/06/16 00:00 00:15 00:30 Temperature 99.9 F H Pulse Rate 88 87 84 Respiratory 20 21 23 Rate Blood Pressure 102/45 97/45 95/43 O2 Sat by Pulse 100 100 100 Oximetry 08/06/16 08/06/16 08/06/16 00:45 01:00 01:10 Temperature Pulse Rate 84 79 86 Respiratory 21 20 17 Rate Blood Pressure 96/44 81/38 94/43 O2 Sat by Pulse 99 100 100 Oximetry 08/06/16 08/06/16 08/06/16 01:15 01:30 01:46 Temperature Pulse Rate 83 82 142 H Respiratory 20 20 20 Rate Blood Pressure 97/44 97/45 99/52 O2 Sat by Pulse 100 98 100 Oximetry 08/06/16 08/06/16 08/06/16 02:00 02:15 02:30 Temperature Pulse Rate 88 91 H 91 H Respiratory 20 20 20 Rate Blood Pressure 114/52 117/50 116/51 O2 Sat by Pulse 100 100 100 Oximetry 08/06/16 08/06/16 08/06/16 02:40 02:45 03:00 Temperature Pulse Rate 90 88 88 Respiratory 20 21 21 Rate Blood Pressure 116/51 112/47 113/49 O2 Sat by Pulse 100 100 99 Oximetry 08/06/16 08/06/16 08/06/16 03:15 03:30 03:45 Temperature Pulse Rate 89 94 H 86 Respiratory 21 22 21 Rate Blood Pressure 120/51 130/57 110/43 O2 Sat by Pulse 100 100 100 Oximetry 08/06/16 08/06/16 08/06/16 04:00 04:05 04:15 Temperature 99.1 F Pulse Rate 91 H 94 H 170 H Respiratory 17 Rate Blood Pressure 120/49 120/49 127/61 O2 Sat by Pulse 99 100 100 Oximetry 08/06/16 08/06/16 08/06/16 04:16 04:30 04:46 Temperature Pulse Rate 148 H 165 H 150 H Respiratory 20 19 16 Rate Blood Pressure 112/40 112/40 85/46 O2 Sat by Pulse 100 89 Oximetry 08/06/16 08/06/16 08/06/16 05:00 05:07 05:16 Temperature Pulse Rate 149 H 167 H 166 H Respiratory 18 20 Rate Blood Pressure 102/54 102/54 104/65 O2 Sat by Pulse 100 96 Oximetry 08/06/16 08/06/16 08/06/16 05:30 05:45 06:00 Temperature Pulse Rate 149 H 88 139 H Respiratory 19 21 20 Rate Blood Pressure 122/60 121/47 125/50 O2 Sat by Pulse 100 100 100 Oximetry 08/06/16 08/06/16 08/06/16 06:15 06:30 06:45 Temperature Pulse Rate 138 H 138 H 91 H Respiratory 24 15 20 Rate Blood Pressure 123/53 126/54 123/51 O2 Sat by Pulse 100 100 100 Oximetry 08/06/16 08/06/16 08/06/16 07:00 07:15 07:30 Temperature Pulse Rate 88 90 89 Respiratory 20 10 L 19 Rate Blood Pressure 120/47 117/50 119/48 O2 Sat by Pulse 100 100 Oximetry 08/06/16 08/06/16 08/06/16 07:45 08:00 08:15 Temperature 100.4 F H Pulse Rate 87 87 85 Respiratory 16 19 17 Rate Blood Pressure 118/46 121/48 114/44 O2 Sat by Pulse 100 100 Oximetry 08/06/16 08/06/16 08/06/16 08:30 08:45 09:00 Temperature Pulse Rate 86 86 83 Respiratory 20 11 L 20 Rate Blood Pressure 117/48 109/58 113/46 O2 Sat by Pulse 100 87 100 Oximetry 08/06/16 09:45 Temperature Pulse Rate 82 Respiratory Rate Blood Pressure 110/46 O2 Sat by Pulse Oximetry - General Appearance General appearance: well-developed, well-nourished, intubated, other (on vent, FiO2 30%) EENT: PERRL Neck: supple Respiratory: Present: Other (coarse breath sounds) Cardiology: regular, S1S2 Gastrointestinal: normoactive bowel sounds Integumentary: other (papular rash over extremities) Neurologic: other (arousable) Musculoskeletal: other (bilateral LE edema, left arm AVF) - Lab 08/06/16 04:45 08/06/16 04:45 Most recent lab results Calcium 8.5 mg/dL (8.4-10.2) 08/06/16 04:45 Phosphorus 9.0 mg/dL (2.5-4.5) H 08/02/16 04:36 Magnesium 2.1 mg/dL (1.7-2.3) 08/04/16 01:40
[2016-08-06] MEDS ORDERED: D5/0.45NS 1,000 ML IV SCH (11:00)
--- NOTE | 2016-08-06 11:10 | Progress Note ---
Assessment and Plan Assessment and plan: 1. Cardiac arrest PEA followed by VF 08/04; shocked multiple times; downtime aprox 35 min; ROSC obtained; intubated and started on pressors Troponin elevated likely due to CPR Now on levophed and heparin drip Cardiology following, planning cardiac cath in the next days 2. Paroxysmal A. fib with RVR Present on admission, received Cardizem and converted back to NSR; anticoagulated with heparin drip initially then switched to Eliquis, now back on heparin drip 3. Nonsustained SVT Monitor in ICU Likely secondary to her underlying heart condition with dilated right heart Cardiology following, will need additional testing and management based on findings 4. Acute exacerbation systolic heart failure/Right heart failure Presented for worsening shortness of breath and lower extremity edema, increased abdominal girth and abdominal pain ECHO showing EF 40%, moderate LVH, dilated right heart chambers, TR, pulmonary hypertension 5. Acute respiratory failure Secondary to cardiac arrest Intubated 6. Acute encephalopathy Concern for anoxic brain injury, but improving 7. Abdominal pain CT abd/pelvis with no acute abnormality, except for moderate ascites which can be due to her right heart failure Abd US obtained and showing small ascites with no collection big enough for ultrasound-guided paracentesis Concern for mezenteric ischemia, so CTA abd ordered, but not obtained due to acute events 8. PVD LE Doppler pending 9. ESRD on HD On [facility] Nep[facility] following and assessing need for dialysis and possibility of performing it on a daily basis now 10. Hyperkalemia Managed through HD 11. Metabolic acidosis Secondary to renal failure vs infecton/sepsis Improved after HD 12. Anemia of CKD Epogen with HD per neprology 13. SIRS On admission CXR with no acute findings; CT abd/pelvis also with no acute process, except for moderate ascitis and anterior abd wall subcutaneous edema WBC trended up Initial blood cultures negative; repeated 08/04 after cardiac event and negative at 48 hours, but running low grade ferver On antibiotics empirically 14. HTN Now hypotensive on pressors 15. DM Episodes of hypoglycemia; hold insulin and monitor 16. Hypothyroidism TSH slightly elevated, Syntroid dose increased 17. Malnutrition Due to her multiple comorbidities Currently NPO as she is on pressors (on D51/2NS) 18. DVT prophylaxis On heparin drip 19. Prognosis guarded; discussed with family The high probability of a clinically significant, sudden or life threatening deterioration of the [] system(s) required my full and direct attention, intervention and personal management. The aggregate critical care time was [35] minutes. This time is in addition to time spent performing reported procedures but includes the following: [x] Data Review and interpretation [x] Patient assessment and monitoring of vital signs [x] Documentation [x] Medication orders and management [x]Discussing with family History Interval history: On levophed and heparin drip; no continuous sedation; mental status improving, awakened and followed commands Hospitalist Physical - Constitutional Vitals: Temp Pulse Resp BP Pulse Ox 100.4 F H 82 20 110/46 100 08/06/16 08:00 08/06/16 09:45 08/06/16 09:00 08/06/16 09:45 08/06/16 09:00 General appearance: Present: mild distress - EENT Eyes: Present: PERRL - Neck Neck: Present: supple. Absent: enlarged thyroid, masses or JVD - Respiratory Respiratory effort: other (intubated) Respiratory: bilateral: CTA, negative: rhonchi, wheezing - Cardiovascular Rhythm: other (tachycardic) Heart Sounds: Present: S1 & S2, systolic murmur - Extremities Extremities: no ischemia, abnormal (feet cooler, but with palpable pulses) - Abdominal General gastrointestinal: soft, non-tender, non-distended, normal bowel sounds - Psychiatric Psychiatric: other - Neurologic Neurologic: moves all extremities Results - Labs CBC & Chem 7: 08/06/16 04:45 08/06/16 04:45 Labs: Laboratory Last Values WBC 16.5 K/mm3 (4.5-11.0) H 08/05/16 06:00 RBC 2.79 M/mm3 (3.65-5.03) L 08/05/16 06:00 Hgb 8.0 gm/dl (10.1-14.3) L 08/06/16 04:45 Hct 25.7 % (30.3-42.9) L 08/06/16 04:45 MCV 95 fl (79-97) 08/05/16 06:00 MCH 31 pg (28-32) 08/05/16 06:00 MCHC 32 % (30-34) 08/05/16 06:00 RDW 16.8 % (13.2-15.2) H 08/05/16 06:00 Plt Count 237 K/mm3 (140-440) 08/06/16 04:45 Lymph % (Auto) V Belt Builder 08/05/16 06:00 Garfield % (Auto) V Belt Builder 08/05/16 06:00 Eos % (Auto) V Belt Builder 08/05/16 06:00 Baso % (Auto) V Belt Builder 08/05/16 06:00 Lymph # V Belt Builder 08/05/16 06:00 Garfield # V Belt Builder 08/05/16 06:00 Eos # V Belt Builder 08/05/16 06:00 Baso # V Belt Builder 08/05/16 06:00 Add Manual Diff Complete 08/05/16 06:00 Total Counted 100 08/05/16 06:00 Seg Neutrophils % V Belt Builder 08/05/16 06:00 Seg Neuts % (Manual) 90.0 % (40.0-70.0) H 08/05/16 06:00 Band Neutrophils % 0 % 08/05/16 06:00 Lymphocytes % (Manual) 7.0 % (13.4-35.0) L 08/05/16 06:00 Reactive Lymphs % (Man) 0 % 08/05/16 06:00 Monocytes % (Manual) 3.0 % (0.0-7.3) 08/05/16 06:00 Eosinophils % (Manual) 0 % (0.0-4.3) 08/05/16 06:00 Basophils % (Manual) 0 % (0.0-1.8) 08/05/16 06:00 Metamyelocytes % 0 % 08/05/16 06:00 Myelocytes % 0 % 08/05/16 06:00 Promyelocytes % 0 % 08/05/16 06:00 Blast Cells % 0 % 08/05/16 06:00 Nucleated RBC % 2.0 % (0.0-0.9) H 08/05/16 06:00 Seg Neutrophils # V Belt Builder 08/05/16 06:00 Seg Neutrophils # Man 14.9 K/mm3 (1.8-7.7) H 08/05/16 06:00 Band Neutrophils # 0.0 K/mm3 08/05/16 06:00 Lymphocytes # (Manual) 1.2 K/mm3 (1.2-5.4) 08/05/16 06:00 Abs React Lymphs (Man) 0.0 K/mm3 08/05/16 06:00 Monocytes # (Manual) 0.5 K/mm3 (0.0-0.8) 08/05/16 06:00 Eosinophils # (Manual) 0.0 K/mm3 (0.0-0.4) 08/05/16 06:00 Basophils # (Manual) 0.0 K/mm3 (0.0-0.1) 08/05/16 06:00 Metamyelocytes # 0.0 K/mm3 08/05/16 06:00 Myelocytes # 0.0 K/mm3 08/05/16 06:00 Promyelocytes # 0.0 K/mm3 08/05/16 06:00 Blast Cells # 0.0 K/mm3 08/05/16 06:00 WBC Morphology Not Reportable 08/05/16 06:00 Hypersegmented Neuts Not Reportable 08/05/16 06:00 Hyposegmented Neuts Not Reportable 08/05/16 06:00 Hypogranular Neuts Not Reportable 08/05/16 06:00 Smudge Cells Not Reportable 08/05/16 06:00 Toxic Granulation Not Reportable 08/05/16 06:00 Toxic Vacuolation Not Reportable 08/05/16 06:00 Dohle Bodies Not Reportable 08/05/16 06:00 Pelger-Huet Anomaly Not Reportable 08/05/16 06:00 Mona Rods Not Reportable 08/05/16 06:00 Platelet Estimate Consistent w auto 08/05/16 06:00 Clumped Platelets Not Reportable 08/05/16 06:00 Plt Clumps, EDTA Not Reportable 08/05/16 06:00 Large Platelets Not Reportable 08/05/16 06:00 Giant Platelets Not Reportable 08/05/16 06:00 Platelet Satelliting Not Reportable 08/05/16 06:00 Plt Morphology Comment Not Reportable 08/05/16 06:00 RBC Morphology Not Reportable 08/05/16 06:00 Dimorphic RBCs Not Reportable 08/05/16 06:00 Polychromasia Not Reportable 08/05/16 06:00 Hypochromasia Not Reportable 08/05/16 06:00 Poikilocytosis Not Reportable 08/05/16 06:00 Anisocytosis 1+ 08/05/16 06:00 Microcytosis Not Reportable 08/05/16 06:00 Macrocytosis 1+ 08/05/16 06:00 Spherocytes Not Reportable 08/05/16 06:00 Pappenheimer Bodies Not Reportable 08/05/16 06:00 Sickle Cells Not Reportable 08/05/16 06:00 Target Cells 1+ 08/05/16 06:00 Tear Drop Cells Not Reportable 08/05/16 06:00 Ovalocytes Not Reportable 08/05/16 06:00 Helmet Cells Not Reportable 08/05/16 06:00 [place] Bodies Not Reportable 08/05/16 06:00 [place] Rings Not Reportable 08/05/16 06:00 Marika Cells Not Reportable 08/05/16 06:00 Bite Cells Not Reportable 08/05/16 06:00 Crenated Cell Not Reportable 08/05/16 06:00 Elliptocytes Not Reportable 08/05/16 06:00 Acanthocytes (Spur) Not Reportable 08/05/16 06:00 Rouleaux Not Reportable 08/05/16 06:00 Hemoglobin C Crystals Not Reportable 08/05/16 06:00 Schistocytes Not Reportable 08/05/16 06:00 Malaria parasites Not Reportable 08/05/16 06:00 Dionicio Bodies Not Reportable 08/05/16 06:00 Hem Pathologist Commnt No 08/05/16 06:00 PT 22.8 Sec. (12.2-14.9) H 08/05/16 06:00 INR 2.01 (0.87-1.13) H 08/05/16 06:00 APTT 49.1 Sec. (24.2-36.6) H 08/04/16 Unknown Heparin Anti-Xa Level 0.56 U.I./ml (0.3-0.7) 08/05/16 21:30 POC ABG pH 7.458 (7.35-7.45) H 08/05/16 11:10 POC ABG pCO2 26.6 (35-45) L 08/05/16 11:10 POC ABG pO2 128 (80-105) H 08/05/16 11:10 POC ABG HCO3 18.9 08/05/16 11:10 POC ABG Total CO2 20 08/05/16 11:10 POC ABG O2 Sat 99 08/05/16 11:10 POC ABG Base Excess -5 08/05/16 11:10 FiO2 30 % 08/05/16 11:10 Sodium 139 mmol/L (137-145) 08/06/16 04:45 Potassium 4.8 mmol/L (3.6-5.0) 08/06/16 04:45 Chloride 94.5 mmol/L (98-107) L 08/06/16 04:45 Carbon Dioxide 21 mmol/L (22-30) L 08/06/16 04:45 Anion Gap 28 mmol/L 08/06/16 04:45 BUN 40 mg/dL (7-17) H 08/06/16 04:45 Creatinine 4.1 mg/dL (0.7-1.2) H 08/06/16 04:45 Estimated GFR 14 ml/min 08/06/16 04:45 BUN/Creatinine Ratio 9.75 % 08/06/16 04:45 Glucose 100 mg/dL (65-100) 08/06/16 04:45 POC Glucose 105 (70-105) 08/06/16 05:44 Calcium 8.5 mg/dL (8.4-10.2) 08/06/16 04:45 Phosphorus 9.0 mg/dL (2.5-4.5) H 08/02/16 04:36 Magnesium 2.1 mg/dL (1.7-2.3) 08/04/16 01:40 Total Bilirubin 1.4 mg/dL (0.1-1.2) H 08/05/16 06:00 AST 61 units/L (5-40) H 08/05/16 06:00 ALT 29 units/L (7-56) 08/05/16 06:00 Alkaline Phosphatase 446 units/L (35-129) H 08/05/16 06:00 Total Creatine Kinase 381 units/L (30-135) H 08/04/16 Unknown CK-MB (CK-2) 24.0 ng/mL (0.0-4.0) H 08/04/16 Unknown CK-MB (CK-2) Rel Index 6.2 (0-4) H 08/04/16 Unknown Troponin T 2.000 ng/mL (0.00-0.029) H* 08/04/16 Unknown NT-Pro-B Natriuret Pep > 01425 pg/mL (0-450) H 07/30/16 21:34 Total Protein 6.1 g/dL (6.3-8.2) L 08/05/16 06:00 Albumin 1.7 g/dL (3.9-5) L 08/05/16 06:00 Albumin/Globulin Ratio 0.4 % 08/05/16 06:00 Triglycerides 81 mg/dL (2-149) 08/04/16 01:40 Cholesterol 203 mg/dL (50-199) H 08/04/16 01:40 LDL Cholesterol Direct 172 mg/dL (50-130) H 08/04/16 01:40 HDL Cholesterol 15 mg/dL (40-59) L 08/04/16 01:40 Cholesterol/HDL Ratio 13.53 % 08/04/16 01:40 TSH 6.790 mlU/mL (0.270-4.200) H 08/02/16 04:36
[2016-08-06 13:24] LABS: ISTAT Base Excess -4; ISTAT HCO3 20.5; ISTAT PCO2 30.8 (35-45); ISTAT PH 7.432 (7.35-7.45); ISTAT PO2 72 (80-105); ISTAT SO2 95; ISTAT TCO2 21
--- NOTE | 2016-08-06 13:46 | Progress Note ---
Assessment and Plan - Patient Problems (1) Respiratory failure Current Visit: Yes Status: Acute Plan to address problem: Continue supportive care. (2) Atrial fibrillation with rapid ventricular response Current Visit: Yes Status: Acute Plan to address problem: Digoxin has been started for paroxysmal atrial tachyarrhythmias. She is unable to take oral medications due to the underlying abdominal pathology. Once she is successfully weaned off the Levophed and blood pressure is stable, we will add beta moo or Cardizem to her regimen. Subjective Date of service: 08/06/16 Principal diagnosis: cardiopulmonary arrest Interval history: Patient is sedated, under event. During the night, she was reported to develop a more sustained narrow complex tachycardia, was started on intravenous Cardizem. She is now back in a stable sinus rhythm. We will stop the Cardizem and due to her underlying hypotension which continues to require levo fed. Objective Vital Signs Temp Pulse Resp Resp Resp Resp BP 08/06/16 13:30 90 21 123/52 08/06/16 13:15 83 17 112/43 08/06/16 13:00 82 16 108/42 08/06/16 12:46 82 17 108/42 08/06/16 12:45 83 18 107/43 08/06/16 12:33 84 17 104/41 08/06/16 12:30 82 18 104/41 08/06/16 12:22 80 13 103/41 08/06/16 12:15 84 18 118/44 08/06/16 12:00 84 17 116/45 08/06/16 11:45 81 15 109/42 08/06/16 11:30 80 14 108/41 08/06/16 11:15 80 19 110/45 08/06/16 11:00 82 20 116/44 08/06/16 10:45 79 20 107/43 08/06/16 10:30 80 20 110/43 08/06/16 10:15 80 20 109/42 08/06/16 10:00 81 21 20 20 20 109/44 08/06/16 09:45 81 20 107/43 08/06/16 09:30 82 20 110/46 08/06/16 09:15 82 20 114/48 08/06/16 09:02 82 20 113/46 08/06/16 09:00 83 20 113/46 08/06/16 08:45 86 11 L 109/58 08/06/16 08:30 86 20 117/48 08/06/16 08:15 85 17 114/44 08/06/16 08:00 100.4 F H 80 20 113/42 08/06/16 07:45 87 16 118/46 08/06/16 07:30 89 19 119/48 08/06/16 07:15 90 10 L 117/50 08/06/16 07:00 88 20 120/47 08/06/16 06:45 91 H 20 123/51 08/06/16 06:30 138 H 15 126/54 08/06/16 06:15 138 H 24 123/53 08/06/16 06:00 139 H 20 125/50 08/06/16 05:45 88 21 121/47 08/06/16 05:30 149 H 19 122/60 08/06/16 05:16 166 H 20 104/65 08/06/16 05:07 167 H 102/54 08/06/16 05:00 149 H 18 102/54 08/06/16 04:46 150 H 16 85/46 08/06/16 04:30 165 H 19 112/40 08/06/16 04:16 148 H 20 112/40 08/06/16 04:15 170 H 127/61 08/06/16 04:05 94 H 120/49 08/06/16 04:00 99.1 F 91 H 17 120/49 08/06/16 03:45 86 21 110/43 08/06/16 03:30 94 H 22 130/57 08/06/16 03:15 89 21 120/51 08/06/16 03:00 88 21 113/49 08/06/16 02:45 88 21 112/47 08/06/16 02:40 90 20 116/51 08/06/16 02:30 91 H 20 116/51 08/06/16 02:15 91 H 20 117/50 08/06/16 02:00 88 20 114/52 08/06/16 01:46 142 H 20 99/52 08/06/16 01:30 82 20 97/45 08/06/16 01:15 83 20 97/44 08/06/16 01:10 86 17 94/43 08/06/16 01:00 79 20 81/38 08/06/16 00:45 84 21 96/44 08/06/16 00:30 84 23 95/43 08/06/16 00:15 87 21 97/45 08/06/16 00:00 99.9 F H 88 20 102/45 08/05/16 23:45 87 20 101/45 08/05/16 23:40 88 101/47 08/05/16 23:30 88 21 101/47 08/05/16 23:15 86 21 99/45 08/05/16 23:00 86 20 98/44 08/05/16 22:45 90 14 102/49 08/05/16 22:36 89 10 L 100/47 08/05/16 22:30 87 11 L 100/47 08/05/16 22:15 87 13 97/48 08/05/16 22:00 94 H 20 114/52 08/05/16 21:45 92 H 9 L 106/44 08/05/16 21:30 110/43 08/05/16 21:15 84 21 110/43 08/05/16 21:00 82 21 107/42 08/05/16 20:45 85 21 109/44 08/05/16 20:30 91 H 21 128/50 08/05/16 20:15 87 22 122/48 08/05/16 20:00 100.2 F H 91 H 20 119/49 08/05/16 19:45 90 21 118/48 08/05/16 19:35 91 H 119/48 08/05/16 19:30 92 H 20 119/48 08/05/16 19:15 92 H 21 123/48 08/05/16 19:00 92 H 20 123/49 08/05/16 18:46 92 H 12 122/49 08/05/16 18:45 93 H 21 122/49 08/05/16 18:30 92 H 21 125/49 08/05/16 18:15 93 H 21 119/51 08/05/16 18:00 92 H 20 120/49 08/05/16 17:45 95 H 21 126/52 08/05/16 17:30 95 H 20 122/53 08/05/16 17:20 95 H 20 120/52 08/05/16 17:15 96 H 20 120/52 08/05/16 17:00 97 H 20 125/53 08/05/16 16:45 98 H 20 125/52 08/05/16 16:30 103 H 18 130/57 08/05/16 16:15 104 H 20 134/58 08/05/16 16:12 99 H 132/59 08/05/16 16:10 98.8 F 101 H 9 L 132/59 08/05/16 16:00 99.7 F H 100 H 8 L 136/56 08/05/16 15:45 101 H 11 L 122/54 08/05/16 15:30 101 H 12 125/54 08/05/16 15:15 101 H 9 L 119/56 08/05/16 15:00 101 H 10 L 122/54 08/05/16 14:45 101 H 10 L 122/55 08/05/16 14:30 102 H 14 129/55 08/05/16 14:15 100 H 13 129/54 08/05/16 14:00 101 H 15 126/56 08/05/16 13:45 100 H 17 117/58 Pulse Ox Pulse Ox 08/06/16 13:30 08/06/16 13:15 08/06/16 13:00 99 08/06/16 12:46 99 08/06/16 12:45 08/06/16 12:33 92 08/06/16 12:30 99 08/06/16 12:22 99 08/06/16 12:15 08/06/16 12:00 100 08/06/16 11:45 100 08/06/16 11:30 100 08/06/16 11:15 100 08/06/16 11:00 100 08/06/16 10:45 99 08/06/16 10:30 100 08/06/16 10:15 100 08/06/16 10:00 08/06/16 09:45 100 08/06/16 09:30 08/06/16 09:15 100 08/06/16 09:02 100 08/06/16 09:00 100 08/06/16 08:45 87 08/06/16 08:30 100 08/06/16 08:15 100 08/06/16 08:00 100 08/06/16 07:45 100 08/06/16 07:30 100 08/06/16 07:15 08/06/16 07:00 100 08/06/16 06:45 100 08/06/16 06:30 100 08/06/16 06:15 100 08/06/16 06:00 100 08/06/16 05:45 100 08/06/16 05:30 100 08/06/16 05:16 96 08/06/16 05:07 08/06/16 05:00 100 08/06/16 04:46 89 08/06/16 04:30 08/06/16 04:16 100 08/06/16 04:15 100 08/06/16 04:05 100 08/06/16 04:00 99 08/06/16 03:45 100 08/06/16 03:30 100 08/06/16 03:15 100 08/06/16 03:00 99 08/06/16 02:45 100 08/06/16 02:40 100 08/06/16 02:30 100 08/06/16 02:15 100 08/06/16 02:00 100 08/06/16 01:46 100 08/06/16 01:30 98 08/06/16 01:15 100 08/06/16 01:10 100 08/06/16 01:00 100 08/06/16 00:45 99 08/06/16 00:30 100 08/06/16 00:15 100 08/06/16 00:00 100 08/05/16 23:45 100 08/05/16 23:40 100 08/05/16 23:30 100 08/05/16 23:15 08/05/16 23:00 08/05/16 22:45 100 08/05/16 22:36 100 08/05/16 22:30 100 08/05/16 22:15 100 08/05/16 22:00 08/05/16 21:45 100 08/05/16 21:30 100 08/05/16 21:15 100 08/05/16 21:00 100 08/05/16 20:45 100 08/05/16 20:30 08/05/16 20:15 08/05/16 20:00 100 08/05/16 19:45 08/05/16 19:35 100 08/05/16 19:30 100 08/05/16 19:15 100 08/05/16 19:00 08/05/16 18:46 08/05/16 18:45 08/05/16 18:30 08/05/16 18:15 08/05/16 18:00 08/05/16 17:45 08/05/16 17:30 08/05/16 17:20 08/05/16 17:15 08/05/16 17:00 08/05/16 16:45 08/05/16 16:30 08/05/16 16:15 08/05/16 16:12 08/05/16 16:10 08/05/16 16:00 08/05/16 15:45 08/05/16 15:30 08/05/16 15:15 08/05/16 15:00 08/05/16 14:45 08/05/16 14:30 08/05/16 14:15 08/05/16 14:00 08/05/16 13:45 100 - Physical Examination General: Other (sedated on the vent) HEENT: Positive: PERRL Neck: Positive: trachea midline Cardiac: Positive: Reg Rate and Rhythm Lungs: Positive: Decreased Breath Sounds Neuro: Positive: Other (Sedate, on the vent) Abdomen: Positive: Firm, Distended Skin: Positive: Clear Extremities: Present: edema (trace), Cold - Labs and Meds CBC 08/06/16 Range/Units 04:45 Hgb 8.0 L (10.1-14.3) gm/dl Hct 25.7 L (30.3-42.9) % Plt Count 237 (140-440) K/mm3 Comprehensive Metabolic Panel 08/06/16 Range/Units 04:45 Sodium 139 (137-145) mmol/L Potassium 4.8 (3.6-5.0) mmol/L Chloride 94.5 L (98-107) mmol/L Carbon Dioxide 21 L (22-30) mmol/L BUN 40 H (7-17) mg/dL Creatinine 4.1 H (0.7-1.2) mg/dL Glucose 100 (65-100) mg/dL Calcium 8.5 (8.4-10.2) mg/dL
[2016-08-06] MEDS: D50W (25GM) IV PRN (17:15)
[2016-08-06] MEDS ORDERED: CORDARONE 150 MG in D5W 97 ML IV ONE (18:00)
[2016-08-06] MEDS ORDERED: CORDARONE 900 MG in D5W 482 ML IV SCH (18:00)
[2016-08-06] MEDS ORDERED: ADRENALIN IV ONE (18:09)
[2016-08-06] MEDS ORDERED: D50W (25GM) IV ONE (18:09)
[2016-08-06] MEDS ORDERED: ADRENALIN ONE ×2 (18:09→18:44)
[2016-08-06] MEDS ORDERED: CORDARONE IV ONE (18:09)
[2016-08-06] MEDS ORDERED: SODIUM BICARBONATE IV ONE ×2 (18:09→18:48)
[2016-08-06] MEDS ORDERED: PITRESSin 20 UNIT in NACL 0.9% 100 ML IV SCH (19:00)
[2016-08-06] MEDS ORDERED: LEVOPHED 8 MG in NACL 0.9% 250ML 242 ML IV SCH (19:00)
--- NOTE | 2016-08-06 19:09 | Event Note ---
Date: 08/06/16 Coded multiple times.
[2016-08-06 19:54] VITALS: BP 93/33
--- NOTE | 2016-08-07 09:19 | Death Summary ---
Summary - Providers Date of service: 08/07/16 Consults: 07/31/16 10:15 Consult to Physician [CONS] Routine Consulting Provider: ERICK CERDA Reason For Exam: atrial fin Place consult to:: answering service Notified:: yes Phone number called:: [phone] Was contact made?: Yes If yes, spoke with:: Amy Time called:: 17:54 08/04/16 00:03 Consult to Physician [CONS] Routine Consulting Provider: VIRGEN MORROW Reason For Exam: cc Notified:: funeral planner pl call Attending: MARISELA PENN - summary Date of admission: 07/31/16 07:38 Date of : 08/06/16
[2016-08-07] MEDS ORDERED: VITAMIN D2 PO SCH (10:00)
== END 2016-08-06 22:07 | DRG 208 ==
LOC: ED 20:17 → 4A 07-31 07:38 → CC1 08-03 23:45
PROVIDERS: ADMIT Internal Medicine; ATTEND Internal Medicine
PROC: 5A1D60Z (ICD-10-PCS; 2016-08-02)
PROC: 5A1945Z Respiratory Ventilation, 24-96 Consecutive Hours (ICD-10-PCS; 2016-08-03)
PROC: 0BH17EZ Insertion of Endotracheal Airway into Trachea, Via Natural or Artificial Opening (ICD-10-PCS; 2016-08-03)
PROC: 05HD33Z Insertion of Infusion Device into Right Cephalic Vein, Percutaneous Approach (ICD-10-PCS; 2016-08-04)
PROC: 5A12012 Performance of Cardiac Output, Single, Manual (ICD-10-PCS; 2016-08-04)
PROC: 4A033R1 Measurement of Arterial Saturation, Peripheral, Percutaneous Approach (ICD-10-PCS; principal; 2016-08-05)
PROC: 5A12012 Performance of Cardiac Output, Single, Manual (ICD-10-PCS; 2016-08-06)
DX: J96.00 Acute respiratory failure, unspecified whether with hypoxia or hypercapnia (principal); N18.6 End stage renal disease; I50.21 Acute systolic (congestive) heart failure; G93.40 Encephalopathy, unspecified; R18.8 Other ascites; I13.2 Hypertensive heart and chronic kidney disease with heart failure and with stage 5 chronic kidney disease, or end stage renal disease; R65.10 Systemic inflammatory response syndrome (SIRS) of non-infectious origin without acute organ dysfunction; E46 Unspecified protein-calorie malnutrition; I42.9 Cardiomyopathy, unspecified; I48.0 Paroxysmal atrial fibrillation; E87.5 Hyperkalemia; D63.1 Anemia in chronic kidney disease; E11.22 Type 2 diabetes mellitus with diabetic chronic kidney disease; E03.9 Hypothyroidism, unspecified; G43.909 Migraine, unspecified, not intractable, without status migrainosus; M06.9 Rheumatoid arthritis, unspecified; I27.2 Other secondary pulmonary hypertension; I95.9 Hypotension, unspecified; E11.51 Type 2 diabetes mellitus with diabetic peripheral angiopathy without gangrene; I07.1 Rheumatic tricuspid insufficiency; E11.40 Type 2 diabetes mellitus with diabetic neuropathy, unspecified; I46.9 Cardiac arrest, cause unspecified; I49.01 Ventricular fibrillation; Z99.2 Dependence on renal dialysis; Z98.890 Other specified postprocedural states; Z88.2 Allergy status to sulfonamides; Z79.4 Long term (current) use of insulin; Z79.899 Other long term (current) drug therapy; Z68.29 Body mass index [BMI] 29.0-29.9, adult; Z82.49 Family history of ischemic heart disease and other diseases of the circulatory system; Z83.3 Family history of diabetes mellitus; Z86.718 Personal history of other venous thrombosis and embolism
CPT/HCPCS: 31500; 36415; 36600; 71010; 71020; 74000; 74176; 76705; 80048; 80053; 80061; 82550; 82553; 82803; 82962; 83735; 83880; 84100; 84443; 84484; 85007; 85014; 85018; 85025; 85027; 85049; 85520; 85610; 85730; 87040; 87070; 87205; 92950; 93005; 93010; 93306; 93970; 94002; 94003; 96372; 96374; 96375; A9270-GY; J0171; J0282; J0885; J1160; J1265; J1644; J1815; J1956; J2270; J2543; J3010; J3370; J7030; J7040; J7050; J7060